=== PATIENT | female | born 1940 | race Caucasian/White ===

== ENCOUNTER → 2016-10-10 | Outpatient (CLI) | payer OTHER, BC ==
[~2016-10-10] MED LIST: APOA1CAP PO; ASCA500; ASCO-63 PO; ASPEC81; ASPI81TA28 PO; BROM500T2 PO; BROMELAIN; CALC-393 PO; CALCIUM; CHOL1CAP67 PO; CLOP1TAB5 PO; CYAN500T; HYZ/10015 PO; LEVO100T7 PO; LEVO100T84 PO; MEDLIST; MULT-506; NAPR1TAB9 PO; PRLSR20 PO; SIMV20TA5 PO; VERA240T20; VITA100C4; VITAMIN B WITH C
[2016-10-10 13:34] LABS: BASO % 0.8 %; BASO ABS # 0.11 K/uL (0-0.2); COMPLETE YES; EOS % 6.4 %; HEMATOCRIT 37.2 % (37-47); IG% 0.6 %; LYMPH % 15.1 %; LYMPH ABS # 2.01 K/uL (1.2-3.4); MEAN CELL VOLUME 88.8 fL (80-100); MEAN CORPUSCULAR HEMOGLOBIN 29.6 pg (25-34); MEAN CORPUSCULAR HGB CONC 33.3 g/dl (32-36); MEAN PLATELET VOLUME 9.4 fL (7.4-10.4); MONO % 8.4 %; NEUT % 68.7 %; PLATELET COUNT 395 K/uL (130-400); RED BLOOD COUNT 4.19 M/uL (4.2-5.4); WHITE BLOOD COUNT 13.29 K/uL (4.8-10.8)
[2016-10-10 14:22] LABS: ALT/SGPT 27 U/L (12-78); BLOOD UREA NITROGEN 26 mg/dl (7-18); BUN/CREATININE RATIO 32.6 (10-20); CARBON DIOXIDE 28 mmol/L (21-32); CHLORIDE 103 mmol/L (98-107); CHOLESTEROL 214 mg/dl (0-200); GLUCOSE 85 mg/dl (70-99); POTASSIUM 3.9 mmol/L (3.5-5.1); SODIUM 139 mmol/L (136-145); TRIGLYCERIDES 158 mg/dl (0-150); VERY LOW DENSITY LIPOPROT CALC 32 mg/dl
[2016-10-10 14:33] LABS: ALB/GLOB RATIO 1.3 (0.9-2); ALKALINE PHOSPHATASE 73 U/L (45-117); AST/SGOT 19 U/L (15-37); CHOLESTEROL/HDL RATIO 4.6; HDL CHOLESTEROL 47 mg/dl; LDL CHOLESTEROL CALCULATED 135 mg/dl; THYROID STIMULATING HORMONE 0.328 uIu/ml (0.300-4.500)
[2016-10-10 14:50] LABS: CALCIUM 9.7 mg/dl (8.5-10.1)
== END | disposition home or self-care (01) ==
LOC: C.LABBC 10:32
PROVIDERS: ATTEND Physician Assistant Medical
DX: I10 Essential (primary) hypertension (principal); E03.9 Hypothyroidism, unspecified; M85.80 Other specified disorders of bone density and structure, unspecified site

== ENCOUNTER → 2016-10-29 | Outpatient (CLI) | payer OTHER, BC ==
[2016-10-29 13:43] LABS: BASO % 0.7 %; BASO ABS # 0.07 K/uL (0-0.2); COMPLETE YES; EOS % 12.1 %; HEMATOCRIT 38.7 % (37-47); IG% 0.4 %; LYMPH % 16.8 %; LYMPH ABS # 1.75 K/uL (1.2-3.4); MEAN CELL VOLUME 88.6 fL (80-100); MEAN CORPUSCULAR HEMOGLOBIN 28.4 pg (25-34); MEAN PLATELET VOLUME 9.8 fL (7.4-10.4); MONO % 9.2 %; NEUT % 60.8 %; PLATELET COUNT 351 K/uL (130-400); RED BLOOD COUNT 4.37 M/uL (4.2-5.4); WHITE BLOOD COUNT 10.44 K/uL (4.8-10.8)
== END | disposition home or self-care (01) ==
LOC: C.LABBC 11:26
PROVIDERS: ATTEND Physician Assistant Medical
DX: I10 Essential (primary) hypertension (principal)

== ENCOUNTER 2016-11-05 11:58 | Inpatient (IN) | payer OTHER, BC ==
[~2016-11-05] VITALS: Ht 149.9 cm; Wt 64.1 kg
[~2016-11-05 11:58] MED LIST changes: -APOA1CAP PO; -ASCO-63 PO; -ASPI81TA28 PO; -BROM500T2 PO; -CALC-393 PO; -CHOL1CAP67 PO; -CLOP1TAB5 PO; -HYZ/10015 PO; -LEVO100T7 PO; -NAPR1TAB9 PO; -PRLSR20 PO; -SIMV20TA5 PO
[2016-11-05] MEDS ORDERED: SODIUM CHLORIDE 0.9% 1000ML 1,000 ML IV SCH (12:31)
--- NOTE | 2016-11-05 12:52 | DIAGNOSTIC IMAGING REPORT ---
CHEST ONE VIEW PORTABLE CLINICAL HISTORY: 75 years-old Female presenting with Stroke. TECHNIQUE: Portable upright AP view of the chest was obtained. COMPARISON: 05/04/2010. FINDINGS: Cardiomediastinal silhouette unremarkable for atherosclerosis of the aortic arch. Normal heart size. Lungs and pleural spaces clear. Osseous structures and upper abdomen normal. IMPRESSION: 1. No acute cardiopulmonary disease. Electronically signed by: Rick Ferguson 11/05/2016 12:50 PM Dictated Date/Time: 11/05/2016 12:49 PM
--- NOTE | 2016-11-05 13:08 | DIAGNOSTIC IMAGING REPORT ---
CT HEAD WITHOUT CONTRAST (CT) CLINICAL HISTORY: Left-sided facial droop. Right-sided head pain. Speech difficulties. Suspected stroke. COMPARISON STUDY: MRI the brain dated 02/22/2016 TECHNIQUE: Axial CT of the brain is performed from the vertex to the skull base. IV contrast was not administered for this examination. CT DOSE: 638.56 mGycm FINDINGS: No intra or extra-axial mass lesions are visualized. There is no CT evidence of acute cortical infarction. There is no evidence of midline shift. There is no acute hemorrhage. No calvarial fractures are visualized. There are moderate white matter hypodensities likely on a small vessel basis. There is scattered bilateral lacunar infarcts. There is no evidence of pathologic ventricular dilatation. There is no evidence of acute sinusitis IMPRESSION: 1. No acute intracranial findings 2. Scattered lacunar infarcts and moderate white matter disease likely on a small vessel basis Electronically signed by: Sebastián Patel M.D. 11/05/2016 1:06 PM Dictated Date/Time: 11/05/2016 1:04 PM
[2016-11-05 13:10] LABS: BASO % 0.8 %; BASO ABS # 0.09 K/uL (0-0.2); COMPLETE YES; HEMATOCRIT 38.9 % (37-47); IG% 0.2 %; LYMPH % 14.9 %; LYMPH ABS # 1.59 K/uL (1.2-3.4); MEAN CELL VOLUME 87.8 fL (80-100); MEAN CORPUSCULAR HEMOGLOBIN 28.7 pg (25-34); MEAN CORPUSCULAR HGB CONC 32.6 g/dl (32-36); MEAN PLATELET VOLUME 9.6 fL (7.4-10.4); MONO % 8.7 %; NEUT % 68.4 %; PLATELET COUNT 292 K/uL (130-400); RED BLOOD COUNT 4.43 M/uL (4.2-5.4); WHITE BLOOD COUNT 10.67 K/uL (4.8-10.8)
[2016-11-05] MEDS ORDERED: LEVO100T7 PO (13:10)
[2016-11-05] MEDS ORDERED: ASCO-63 PO (13:10)
[2016-11-05] MEDS ORDERED: HYZ/10015 PO (13:10)
[2016-11-05] MEDS ORDERED: BROM500T2 PO (13:10)
[2016-11-05] MEDS ORDERED: PRLSR20 PO (13:10)
[2016-11-05] MEDS ORDERED: CHOL1CAP67 PO (13:10)
[2016-11-05] MEDS ORDERED: CALC-393 PO (13:10)
[2016-11-05] MEDS ORDERED: NAPR1TAB9 PO (13:10)
[2016-11-05] MEDS ORDERED: ASPI81TA28 PO (13:10)
[2016-11-05] MEDS ORDERED: APOA1CAP PO (13:10)
[2016-11-05 13:30] LABS: PARTIAL THROMBOPLASTIN RATIO 0.9; PROTHROMBIN TIME (PATIENT) 10.4 SECONDS (9.0-12.0)
[2016-11-05 13:32] LABS: BLOOD UREA NITROGEN 18 mg/dl (7-18); BUN/CREATININE RATIO 20.9 (10-20); CALCIUM 9.9 mg/dl (8.5-10.1); CARBON DIOXIDE 25 mmol/L (21-32); CHLORIDE 105 mmol/L (98-107); CREATININE 0.86 mg/dl (0.60-1.20); GLUCOSE 91 mg/dl (70-99); POTASSIUM 3.4 mmol/L (3.5-5.1); SODIUM 140 mmol/L (136-145)
[2016-11-05 13:35] LABS: URINE APPEARANCE CLEAR (CLEAR); URINE BILIRUBIN NEG (NEG); URINE COLOR YELLOW; URINE NITRITE NEG (NEG); URINE SPECIFIC GRAVITY 1.011 (1.000-1.030); UROBILINOGEN NEG (NEG); ZZUR CULT IF INDIC CLEAN CATCH NO
[2016-11-05 13:37] LABS: CKMB/CK RATIO 2.2 (0-3.0)
[2016-11-05 13:39] LABS: MANUAL MICROSCOPIC REQUIRED? NO; REVIEW REQ? NO
[2016-11-05] MEDS ORDERED: PHARMACIST DISCHARGE MED REC CONSULT PRN (14:15)
[2016-11-05] MEDS ORDERED: ONDANSETRON INJ 2 MG/ML 2 ML VIAL IV PRN (14:30)
--- NOTE | 2016-11-05 14:41 | EMERGENCY ROOM VISIT NOTE ---
History Report prepared by Ion: Maximo Castro Under the Supervision of: Dr. Aliyah Grant M.D. First contact with patient: 12:26 Chief Complaint: STROKE SYMPTOMS Stated Complaint: NOT THINKING CLEARLY, SPEECH Nursing Triage Summary: Pt stated that last evening while with friends the pt noticed around 17 that she was having a hard time speaking. The pts friend also noticed that the left side of her mouth had a droop. Pt stated that she watched the fireworks and went to bed. Pt got up went to [facility] and then called her son who then brought in to the ED. Pts son stated that he noticed her speech was slurred. Pt stated that while in the waiting room she began stabbing pain on the right side of her head. Pt stated this is the first time she has felt this pain History of Present Illness The patient is a 75 year old female who presents to the Emergency Room with complaints of persistent difficulty with speech beginning last night. She states that she is having trouble saying the correct words while she is speaking. She states that she slept last night without problem. The patient states that she developed a "stabbing" right sided headache while in the ED waiting room. Her headache has since resolved. She denies any weakness. She is not on any blood thinners other than aspirin. Source of History: patient Onset: Last night Quality: other (difficulty with speech) Timing: other (persistent) Associated Symptoms: + headache ("stabbing" right sided), No weakness Review of Systems See HPI for pertinent positives & negatives. A total of 10 systems reviewed and were otherwise negative. Past Medical & Surgical Medical Problems: (1) Asthma (2) CVA (cerebral vascular accident) (3) HTN (hypertension) Surgical Problems: (1) History of hysterectomy (2) S/P appendectomy Family History No pertinent family history stated. Social History Smoking Status: Never Smoker Marital Status: Occupation Status: retired Current/Historical Medications Scheduled Apoaequorin (Prevagen), 1 TAB PO DAILY Ascorbic Acid (Vitamin C), 500 MG PO NEEDED Aspirin (Aspirin Ec), 81 MG PO DAILY Bromelains (Bromelain), 1-2 TAB PO DAILY Calcium Carbonate (Calcium), 600 MG PO DAILY Cholecalciferol (Vitamin D-3), 1,000 INTERUNIT PO DAILY Hctz/Losartan (Hyzaar 25MG/100MG), Unknown Dose PO QAM Levothyroxine Sodium (Levothyroxine Sodium), 100 MCG PO DAILY Naproxen (Aleve), 440 MG PO DAILY Omeprazole (Prilosec), 20 MG PO QAM Allergies Coded Allergies: Penicillins (Unverified Allergy, Mild, 05/04/10) Shellfish (Unverified Allergy, Mild, 05/04/10) Sulfa Drugs (Unverified Allergy, Mild, 05/04/10) Physical Exam Vital Signs Date Time Temp Pulse Resp B/P (MAP) Pulse Ox O2 Delivery O2 Flow Rate FiO2 11/05/16 14:16 156/80 11/05/16 14:08 68 19 97 11/05/16 14:06 65 20 160/89 97 Room Air 11/05/16 14:01 160/89 11/05/16 13:53 76 22 96 11/05/16 13:46 168/87 11/05/16 13:38 73 18 98 11/05/16 13:33 68 19 172/99 97 Room Air 11/05/16 13:26 91 19 162/86 97 Room Air 11/05/16 12:31 82 20 179/84 95 Room Air 11/05/16 12:28 96 Room Air 11/05/16 12:27 73 11/05/16 12:26 77 19 195/89 98 Room Air 11/05/16 12:00 36.9 80 20 176/98 98 Room Air Physical Exam Vital signs reviewed. General: Well-appearing female, in no significant distress. HEENT: No scleral icterus, PERRLA, neck supple. Atraumatic. Cardiovascular: Regular rate and rhythm, no extra sounds. Pulmonary: Clear to auscultation bilaterally, normal work of breathing. Abdomen: Soft, nontender, nondistended, positive bowel sounds. Musculoskeletal: Atraumatic, no peripheral edema. Neurologic: Patient awake alert and oriented x 3, full strength in all 4 extremities. Cranial nerves 2 through 12 grossly intact. Negative Romberg. Normal finger to nose. Mild dysarthria, no specific aphasia. Skin: Warm, dry, no rash Medical Decision & Procedures ER Provider Diagnostic Interpretation: Radiology results as stated below per my review and radiologist interpretation: CT HEAD WITHOUT CONTRAST (CT) FINDINGS: No intra or extra-axial mass lesions are visualized. There is no CT evidence of acute cortical infarction. There is no evidence of midline shift. There is no acute hemorrhage. No calvarial fractures are visualized. There are moderate white matter hypodensities likely on a small vessel basis. There is scattered bilateral lacunar infarcts. There is no evidence of pathologic ventricular dilatation. There is no evidence of acute sinusitis IMPRESSION: 1. No acute intracranial findings 2. Scattered lacunar infarcts and moderate white matter disease likely on a small vessel basis Electronically signed by: Sebastián Patel M.D. CHEST ONE VIEW PORTABLE FINDINGS: Cardiomediastinal silhouette unremarkable for atherosclerosis of the aortic arch. Normal heart size. Lungs and pleural spaces clear. Osseous structures and upper abdomen normal. IMPRESSION: 1. No acute cardiopulmonary disease. Electronically signed by: Rick Ferguson Laboratory Results 11/05/16 12:50 Red Blood Count 4.43, Mean Corpuscular Volume 87.8, Mean Corpuscular Hemoglobin 28.7, Mean Corpuscular Hemoglobin Concent 32.6, Mean Platelet Volume 9.6, Neutrophils (%) (Auto) 68.4, Lymphocytes (%) (Auto) 14.9, Monocytes (%) (Auto) 8.7, Eosinophils (%) (Auto) 7.0, Basophils (%) (Auto) 0.8, Neutrophils # (Auto) 7.29, Lymphocytes # (Auto) 1.59, Monocytes # (Auto) 0.93, Eosinophils # (Auto) 0.75, Basophils # (Auto) 0.09 11/05/16 12:50 Test 11/05/16 12:49 11/05/16 12:50 11/05/16 12:53 11/05/16 13:18 Bedside Glucose 80 mg/dl (70-90) White Blood Count 10.67 K/uL (4.8-10.8) Red Blood Count 4.43 M/uL (4.2-5.4) Hemoglobin 12.7 g/dL (12.0-16.0) Hematocrit 38.9 % (37-47) Mean Corpuscular Volume 87.8 fL (80-100) Mean Corpuscular Hemoglobin 28.7 pg (25-34) Mean Corpuscular Hemoglobin Concent 32.6 g/dl (32-36) Platelet Count 292 K/uL (130-400) Mean Platelet Volume 9.6 fL (7.4-10.4) Neutrophils (%) (Auto) 68.4 % Lymphocytes (%) (Auto) 14.9 % Monocytes (%) (Auto) 8.7 % Eosinophils (%) (Auto) 7.0 % Basophils (%) (Auto) 0.8 % Neutrophils # (Auto) 7.29 K/uL (1.4-6.5) Lymphocytes # (Auto) 1.59 K/uL (1.2-3.4) Monocytes # (Auto) 0.93 K/uL (0.11-0.59) Eosinophils # (Auto) 0.75 K/uL (0-0.5) Basophils # (Auto) 0.09 K/uL (0-0.2) RDW Standard Deviation 43.6 fL (36.4-46.3) RDW Coefficient of Variation 13.5 % (11.5-14.5) Immature Granulocyte % (Auto) 0.2 % Immature Granulocyte # (Auto) 0.02 K/uL (0.00-0.02) Erythrocyte Sedimentation Rate 18 mm/hr (0-21) Prothrombin Time 10.4 SECONDS (9.0-12.0) Prothromb Time International Ratio 1.0 (0.9-1.1) Activated Partial Thromboplast Time 24.6 SECONDS (21.0-31.0) Partial Thromboplastin Ratio 0.9 Anion Gap 10.0 mmol/L (3-11) Est Creatinine Clear Calc Drug Dose 44.0 ml/min Estimated GFR () 75.5 Estimated GFR (Non- 65.2 BUN/Creatinine Ratio 20.9 (10-20) Estimated Average Glucose 120 mg/dl Hemoglobin A1c 5.8 % (4.5-5.6) Calcium Level 9.9 mg/dl (8.5-10.1) Magnesium Level 2.1 mg/dl (1.8-2.4) Total Bilirubin 0.4 mg/dl (0.2-1) Direct Bilirubin 0.1 mg/dl (0-0.2) Aspartate Amino Transf (AST/SGOT) 20 U/L (15-37) Alanine Aminotransferase (ALT/SGPT) 27 U/L (12-78) Alkaline Phosphatase 72 U/L (45-117) Total Creatine Kinase 117 U/L (26-192) Creatine Kinase MB 2.6 ng/ml (0.5-3.6) Creatine Kinase MB Ratio 2.2 (0-3.0) Troponin I < 0.015 ng/ml (0-0.045) Total Protein 7.4 gm/dl (6.4-8.2) Albumin 4.3 gm/dl (3.4-5.0) Lyme Disease IgG Antibody NEG (NEG) Bedside Prothrombin Time INR 1.0 (0.9-1.1) Urine Color YELLOW Urine Appearance CLEAR (CLEAR) Urine pH 6.0 (4.5-7.5) Urine Specific [place] 1.011 (1.000-1.030) Urine Protein NEG (NEG) Urine Glucose (UA) NEG (NEG) Urine Ketones NEG (NEG) Urine Occult Blood NEG (NEG) Urine Nitrite NEG (NEG) Urine Bilirubin NEG (NEG) Urine Urobilinogen NEG (NEG) Urine Leukocyte Esterase NEG (NEG) Laboratory results per my review. Medications Administered Medications (Trade) Dose Ordered Sig/Chris Route Start Time Stop Time Status Last Admin Dose Admin Sodium Chloride 1,000 ml @ 50 mls/hr Q20H IV 11/05/16 12:31 11/05/16 17:09 DC 11/05/16 13:20 50 MLS/HR ECG Indication: other (stroke-like symptoms) Rate (beats per minute): 80 Rhythm: normal sinus Findings: no acute ischemic change, no ectopy ED Course 1226: Past medical records reviewed. The patient was evaluated in room B1. A complete history and physical examination was performed. 1231: Ordered Sodium Chloride 1000 ml @ 50 mls/hr IV. 1400: Upon reevaluation, the patient is resting comfortably. I discussed laboratory and radiographic results with her. She verbalized agreement of the treatment plan. I spoke with Dr. Dowell of the [facility]. The patient will be evaluated for further management and care. Medical Decision Differential diagnosis: Etiologies such as metabolic, infection, hypoglycemia, electrolyte abnormalities , cardiac sources, intracerebral event, toxicologic, neurologic, as well as others were entertained. Blood Pressure Screening: Patient was found to have an elevated blood pressure. Referral was deferred to the hospitalist team. Medication Reconciliation: I attest that I have personally reviewed the patient' s current medication list. This patient was evaluated and appeared to be in no significant distress. IV access was obtained and laboratory work was drawn. The patient was placed on silver designer and found to be in a normal sinus rhythm. EKG reveals no evidence of acute ischemia. Laboratory work reveals negative cardiac enzymes. Head CT is clear. Chest x-ray is normal. No TPA is given as the patient is outside the window, has no appreciable symptoms currently. Patient was discussed with the hospitalist service will evaluate the patient for further management. Consults Time Called: 1400 Consulting Physician: Dr. Dowell -[place] Returned Call: [phone] I reviewed the patient's case with Dr. Dowell. [facility] will evaluate the patient for further management. Impression Primary Impression: Dysarthria Scribe Attestation The scribe's documentation has been prepared under my direction and personally reviewed by me in its entirety. I confirm that the note above accurately reflects all work, treatment, procedures, and medical decision making performed by me. Departure Information Dispostion Being Evaluated By Hospitalist Referrals Shahana Arenas,P.A. (PCP) Patient Instructions [facility]
[2016-11-05 14:54] LABS: ESTIMATED AVERAGE GLUCOSE 120 mg/dl; HA1C FLAG Normal (Normal)
[2016-11-05 15:02] LABS: MAGNESIUM 2.1 mg/dl (1.8-2.4)
[2016-11-05 15:41] LABS: LYME DISEASE AB IGG NEG (NEG)
[2016-11-05 15:44] LABS: LYME DISEASE AB IGM EQUIVOCAL (NEG)
[2016-11-05 17:48] VITALS: BP 162/91; PULSE 69; TEMP 36.7; Ht 149.9 cm; Wt 64.1 kg
[2016-11-05] MEDS: NSS + 20MEQ KCL 1000ML 1,000 ML IV SCH (20:05)
[2016-11-05] MEDS: CALCIUM 600MG + VIT D 400 IU TAB PO SCH (20:06)
[2016-11-05 20:18] VITALS: BP 149/89; PULSE 74; TEMP 37; O2SAT 94
[2016-11-05 21:24] LABS: CKMB/CK RATIO 1.5 (0-3.0)
[2016-11-05] MEDS ORDERED: GADAVIST IV PRN (23:15)
[2016-11-05 23:46] VITALS: BP 117/68; PULSE 71; TEMP 36.9; O2SAT 95
[2016-11-06] VITALS (7 sets, daily range): BP systolic 121–164; BP diastolic 65–92; PULSE 69–81; TEMP 36.5–36.9; O2SAT 96–99
[2016-11-06 04:39] LABS: COMPLETE YES; EOS % 11.1 %; HEMATOCRIT 35.7 % (37-47); IG% 0.3 %; LYMPH % 22.4 %; LYMPH ABS # 2.18 K/uL (1.2-3.4); MEAN CELL VOLUME 87.5 fL (80-100); MEAN CORPUSCULAR HEMOGLOBIN 27.9 pg (25-34); MEAN CORPUSCULAR HGB CONC 31.9 g/dl (32-36); MEAN PLATELET VOLUME 9.2 fL (7.4-10.4); MONO % 9.6 %; NEUT % 55.6 %; PLATELET COUNT 277 K/uL (130-400); RED BLOOD COUNT 4.08 M/uL (4.2-5.4); WHITE BLOOD COUNT 9.72 K/uL (4.8-10.8)
--- NOTE | 2016-11-06 04:59 | History and Physical ---
History & Physical Date & Time of Service: Nov 06, 2016 at 04:47. The patient was examined on 11/05/2016 Chief Complaint: CVA Primary Care Physician: Shahana Arenas P.A. History of Present Illness The patient is a 75-year-old female who presents emergency department with symptoms of expressive aphasia that began the night before, and an intermittent stabbing right-sided headache that began while she was waiting in the emergency department waiting room. She has not had any vision change or hearing change, and has not reported any imbalance or focal weakness. Family has noted that she has developed a left facial droop and some slurring of speech which is new. Past Medical/Surgical History Medical Problems: (1) Asthma Status: Chronic (2) HTN (hypertension) Status: Chronic Surgical Problems: (1) History of hysterectomy Status: Resolved (2) S/P appendectomy Status: Resolved Social History Smoking Status: Never Smoker Smokeless Tobacco Use: No Alcohol Use: none Drug Use: none Marital Status: Housing status: lives alone Occupational Status: retired Multi-Drug Resistant Organisms History of MDRO: No Allergies Coded Allergies: Penicillins (Unverified Allergy, Mild, 05/04/10) Shellfish (Unverified Allergy, Mild, 05/04/10) Sulfa Drugs (Unverified Allergy, Mild, 05/04/10) Home Medications Scheduled Apoaequorin (Prevagen), 1 TAB PO DAILY Ascorbic Acid (Vitamin C), 500 MG PO NEEDED Aspirin (Aspirin Ec), 81 MG PO DAILY Bromelains (Bromelain), 1-2 TAB PO DAILY Calcium Carbonate (Calcium), 600 MG PO DAILY Cholecalciferol (Vitamin D-3), 1,000 INTERUNIT PO DAILY Hctz/Losartan (Hyzaar 25MG/100MG), Unknown Dose PO QAM Levothyroxine Sodium (Levothyroxine Sodium), 100 MCG PO DAILY Naproxen (Aleve), 440 MG PO DAILY Omeprazole (Prilosec), 20 MG PO QAM Review of Systems The patient denies chest pain, palpitations, shortness of breath, cough, lower extremity swelling, vision change, hearing change, sore throat, fevers, chills, sweats, weight change, fatigue, nausea, vomiting, abdominal pain, pelvic pain, blood in urine or stool, dysuria, urinary frequency or urgency, rash, abnormal bruising or bleeding, imbalance, focal weakness, numbness or tingling in arms or legs, arthralgias or myalgias, back or neck pain, night sweats, or allergy symptoms. The review of systems is otherwise negative other than for that already noted above, and at least 10 systems have been reviewed. Physical Exam Vital Signs Date Time Temp Pulse Resp B/P (MAP) Pulse Ox O2 Delivery O2 Flow Rate FiO2 11/06/16 04:09 36.8 69 18 126/73 (90) 96 Room Air 11/06/16 04:00 Room Air 11/06/16 01:44 121/65 (83) 11/06/16 00:00 Room Air 11/05/16 23:46 36.9 71 16 117/68 (84) 95 Room Air 11/05/16 20:18 37.0 74 16 149/89 (109) 94 Room Air 11/05/16 20:00 Room Air 11/05/16 17:48 36.7 69 20 162/91 Room Air 11/05/16 16:30 Room Air 11/05/16 16:16 158/85 11/05/16 16:13 68 19 97 11/05/16 16:01 155/94 11/05/16 15:58 67 19 96 11/05/16 15:46 183/88 11/05/16 15:43 75 14 11/05/16 15:31 163/91 11/05/16 15:28 68 17 97 11/05/16 15:16 172/97 11/05/16 15:13 72 21 95 11/05/16 15:08 73 22 98 11/05/16 15:01 161/82 11/05/16 14:53 69 19 97 11/05/16 14:46 165/96 11/05/16 14:31 172/85 11/05/16 14:23 75 19 92 11/05/16 14:16 156/80 11/05/16 14:08 68 19 97 11/05/16 14:06 65 20 160/89 97 Room Air 11/05/16 14:01 160/89 11/05/16 13:53 76 22 96 11/05/16 13:46 168/87 11/05/16 13:38 73 18 98 11/05/16 13:33 68 19 172/99 97 Room Air 11/05/16 13:26 91 19 162/86 97 Room Air 11/05/16 12:31 82 20 179/84 95 Room Air 11/05/16 12:28 96 Room Air 11/05/16 12:27 73 11/05/16 12:26 77 19 195/89 98 Room Air 11/05/16 12:00 36.9 80 20 176/98 98 Room Air The patient is awake, well-developed and adequately nourished, alert and oriented 3, left-sided facial droop, some slurring of speech, lying in bed and in no acute distress. HEENT--PERRL, EOMI, mucous membranes and oropharynx dry. Neck--supple, no JVD or bruits, thyroid normal, trachea midline, no adenopathy. Heart--normal S1 and S2, no extra beats, no murmurs, rubs or gallops. Lungs--clear bilaterally with good air movement, no respiratory distress, no accessory muscle use. Abdomen--normal bowel sounds and soft, nontender and nondistended, no hernias or masses, no organomegaly. Extremities--no cyanosis, clubbing or edema. There are good distal pulses b/l. Dermatologic--normal skin turgor, normal color, warm and dry, no abnormal lymph nodes, no rash. Neurologic--left facial droop, otherwise normal. Rheumatologic--normal range of motion, nontender, muscles and joints. Psychiatric--normal affect. Diagnostics Laboratory Results Results Past 24 Hours Test 11/05/16 12:49 11/05/16 12:50 11/05/16 12:53 11/05/16 13:18 Range/Units Bedside Glucose 80 70-90 mg/dl White Blood Count 10.67 4.8-10.8 K/uL Red Blood Count 4.43 4.2-5.4 M/uL Hemoglobin 12.7 12.0-16.0 g/dL Hematocrit 38.9 37-47 % Mean Corpuscular Volume 87.8 80-100 fL Mean Corpuscular Hemoglobin 28.7 25-34 pg Mean Corpuscular Hemoglobin Concent 32.6 32-36 g/dl Platelet Count 292 130-400 K/uL Mean Platelet Volume 9.6 7.4-10.4 fL Neutrophils (%) (Auto) 68.4 % Lymphocytes (%) (Auto) 14.9 % Monocytes (%) (Auto) 8.7 % Eosinophils (%) (Auto) 7.0 % Basophils (%) (Auto) 0.8 % Neutrophils # (Auto) 7.29 1.4-6.5 K/uL Lymphocytes # (Auto) 1.59 1.2-3.4 K/uL Monocytes # (Auto) 0.93 0.11-0.59 K/uL Eosinophils # (Auto) 0.75 0-0.5 K/uL Basophils # (Auto) 0.09 0-0.2 K/uL RDW Standard Deviation 43.6 36.4-46.3 fL RDW Coefficient of Variation 13.5 11.5-14.5 % Immature Granulocyte % (Auto) 0.2 % Immature Granulocyte # (Auto) 0.02 0.00-0.02 K/uL Erythrocyte Sedimentation Rate 18 0-21 mm/hr Prothrombin Time 10.4 9.0-12.0 SECONDS Prothromb Time International Ratio 1.0 0.9-1.1 Activated Partial Thromboplast Time 24.6 21.0-31.0 SECONDS Partial Thromboplastin Ratio 0.9 Sodium Level 140 136-145 mmol/L Potassium Level 3.4 3.5-5.1 mmol/L Chloride Level 105 98-107 mmol/L Carbon Dioxide Level 25 21-32 mmol/L Anion Gap 10.0 3-11 mmol/L Blood Urea Nitrogen 18 7-18 mg/dl Creatinine 0.86 0.60-1.20 mg/dl Est Creatinine Clear Calc Drug Dose 44.0 ml/min Estimated GFR () 75.5 Estimated GFR (Non- 65.2 BUN/Creatinine Ratio 20.9 10-20 Random Glucose 91 70-99 mg/dl Estimated Average Glucose 120 mg/dl Hemoglobin A1c 5.8 4.5-5.6 % Calcium Level 9.9 8.5-10.1 mg/dl Magnesium Level 2.1 1.8-2.4 mg/dl Total Bilirubin 0.4 0.2-1 mg/dl Direct Bilirubin 0.1 0-0.2 mg/dl Aspartate Amino Transf (AST/SGOT) 20 15-37 U/L Alanine Aminotransferase (ALT/SGPT) 27 12-78 U/L Alkaline Phosphatase 72 45-117 U/L Total Creatine Kinase 117 26-192 U/L Creatine Kinase MB 2.6 0.5-3.6 ng/ml Creatine Kinase MB Ratio 2.2 0-3.0 Troponin I < 0.015 0-0.045 ng/ml Total Protein 7.4 6.4-8.2 gm/dl Albumin 4.3 3.4-5.0 gm/dl Lyme Disease IgG Antibody NEG NEG Lyme Disease IgM Antibody EQUIVOCAL NEG Bedside Prothrombin Time INR 1.0 0.9-1.1 Urine Color YELLOW Urine Appearance CLEAR CLEAR Urine pH 6.0 4.5-7.5 Urine Specific [place] 1.011 1.000-1.030 Urine Protein NEG NEG Urine Glucose (UA) NEG NEG Urine Ketones NEG NEG Urine Occult Blood NEG NEG Urine Nitrite NEG NEG Urine Bilirubin NEG NEG Urine Urobilinogen NEG NEG Urine Leukocyte Esterase NEG NEG Test 11/05/16 20:27 11/06/16 04:09 Range/Units Total Creatine Kinase 89 26-192 U/L Creatine Kinase MB 1.3 0.5-3.6 ng/ml Creatine Kinase MB Ratio 1.5 0-3.0 Troponin I < 0.015 0-0.045 ng/ml White Blood Count 9.72 4.8-10.8 K/uL Red Blood Count 4.08 4.2-5.4 M/uL Hemoglobin 11.4 12.0-16.0 g/dL Hematocrit 35.7 37-47 % Mean Corpuscular Volume 87.5 80-100 fL Mean Corpuscular Hemoglobin 27.9 25-34 pg Mean Corpuscular Hemoglobin Concent 31.9 32-36 g/dl Platelet Count 277 130-400 K/uL Mean Platelet Volume 9.2 7.4-10.4 fL Neutrophils (%) (Auto) 55.6 % Lymphocytes (%) (Auto) 22.4 % Monocytes (%) (Auto) 9.6 % Eosinophils (%) (Auto) 11.1 % Basophils (%) (Auto) 1.0 % Neutrophils # (Auto) 5.40 1.4-6.5 K/uL Lymphocytes # (Auto) 2.18 1.2-3.4 K/uL Monocytes # (Auto) 0.93 0.11-0.59 K/uL Eosinophils # (Auto) 1.08 0-0.5 K/uL Basophils # (Auto) 0.10 0-0.2 K/uL RDW Standard Deviation 43.8 36.4-46.3 fL RDW Coefficient of Variation 13.7 11.5-14.5 % Immature Granulocyte % (Auto) 0.3 % Immature Granulocyte # (Auto) 0.03 0.00-0.02 K/uL Diagnostic Radiology Patient Name: MELO BELLO Unit Number: [id number] Dictated: 11/05/161303 Transcribed: 11/05/161303 ARG Printed Date/Time: [~ rep prt dt]/[~ rep prt tm] [~ rep ct labl] - [~ rep ct ivnm] [facility] [place] [address] Dictated: 11/05/161303 Transcribed: 11/05/161303 ARG Printed Date/Time: [~ rep prt dt]/[~ rep prt tm] [~ rep ct labl] - [~ rep ct ivnm] CT HEAD WITHOUT CONTRAST (CT) CLINICAL HISTORY: Left-sided facial droop. Right-sided head pain. Speech difficulties. Suspected stroke. COMPARISON STUDY: MRI the brain dated 02/22/2016 TECHNIQUE: Axial CT of the brain is performed from the vertex to the skull base. IV contrast was not administered for this examination. CT DOSE: 638.56 mGycm FINDINGS: No intra or extra-axial mass lesions are visualized. There is no CT evidence of acute cortical infarction. There is no evidence of midline shift. There is no acute hemorrhage. No calvarial fractures are visualized. There are moderate white matter hypodensities likely on a small vessel basis. There is scattered bilateral lacunar infarcts. There is no evidence of pathologic ventricular dilatation. There is no evidence of acute sinusitis IMPRESSION: 1. No acute intracranial findings 2. Scattered lacunar infarcts and moderate white matter disease likely on a small vessel basis Electronically signed by: Sebastián Patel M.D. 11/05/2016 1:06 PM Dictated Date/Time: 11/05/2016 1:04 PM The status of this report is Signed. Draft = Not yet reviewed or approved by Radiologist. Signed = Reviewed and approved by Radiologist. <AttendingPhy></AttendingPhy> <FamilyPhy>Shahana Arenas P.A.</FamilyPhy> < PrimaryPhy>Shahana Arenas P.A.</PrimaryPhy> <UnitNumber>[id number]</UnitNumber > <VisitNumber>[id number]</VisitNumber> <PatientName>MELO BELLO</ PatientName> <DateOfBirth>1940</DateOfBirth> <Location>[facility]</Location> < ServiceDate>11/05/16</ServiceDate> <MNE>ESINDI</MNE> <OrderingPhy>Aliyah Grant M.D.</OrderingPhy> <OrderingPhyMNE>f rep ord dr rubio</OrderingPhyMNE> < DictatingPhyMNE>f rep dict dr rubio</DictatingPhyMNE> <CCListMNE>f rep ct mne</ CCListMNE> <AdmittingPhyMNE>f pt admit dr rubio</AdmittingPhyMNE> <AttendingPhyMNE >f pt attend dr rubio</AttendingPhyMNE> <ConsultingPhyMNE>f pt consult dr rubio</ConsultingPhyMNE> <FamilyPhyMNE>f pt fam dr rubio</FamilyPhyMNE> <OtherPhyMNE>f pt other dr rubio</OtherPhyMNE> < PrimaryPhyMNE>f pt prim care dr rubio</PrimaryPhyMNE> <ReferringPhyMNE>f pt referring dr rubio</ReferringPhyMNE> Patient Name: MELO BELLO Unit Number: [id number] Dictated: 11/05/161248 Transcribed: 11/05/161248 PBS Printed Date/Time: [~ rep prt dt]/[~ rep prt tm] [~ rep ct labl] - [~ rep ct ivnm] [facility] [place] [address] Dictated: 11/05/161248 Transcribed: 11/05/161248 PBS Printed Date/Time: [~ rep prt dt]/[~ rep prt tm] [~ rep ct labl] - [~ rep ct ivnm] CHEST ONE VIEW PORTABLE CLINICAL HISTORY: 75 years-old Female presenting with Stroke. TECHNIQUE: Portable upright AP view of the chest was obtained. COMPARISON: 05/04/2010. FINDINGS: Cardiomediastinal silhouette unremarkable for atherosclerosis of the aortic arch. Normal heart size. Lungs and pleural spaces clear. Osseous structures and upper abdomen normal. IMPRESSION: 1. No acute cardiopulmonary disease. Electronically signed by: Rick Ferguson 11/05/2016 12:50 PM Dictated Date/Time: 11/05/2016 12:49 PM The status of this report is Signed. Draft = Not yet reviewed or approved by Radiologist. Signed = Reviewed and approved by Radiologist. <AttendingPhy></AttendingPhy> <FamilyPhy>Shahana ArenasPSincere.</FamilyPhy> < PrimaryPhy>Shahana ArenasPSharonA.</PrimaryPhy> <UnitNumber>[id number]</UnitNumber > <VisitNumber>[id number]</VisitNumber> <PatientName>MELO BELLO</ PatientName> <DateOfBirth>1940</DateOfBirth> <Location>[facility]</Location> < ServiceDate>11/05/16</ServiceDate> <MNE>ESINDI</MNE> <OrderingPhy>Aliyah Grant M.D.</OrderingPhy> <OrderingPhyMNE>f rep ord dr rubio</OrderingPhyMNE> < DictatingPhyMNE>f rep dict dr rubio</DictatingPhyMNE> <CCListMNE>f rep ct mne</ CCListMNE> <AdmittingPhyMNE>f pt admit dr rubio</AdmittingPhyMNE> <AttendingPhyMNE >f pt attend dr rubio</AttendingPhyMNE> <ConsultingPhyMNE>f pt consult dr rubio</ConsultingPhyMNE> <FamilyPhyMNE>f pt fam dr rubio</FamilyPhyMNE> <OtherPhyMNE>f pt other dr rubio</OtherPhyMNE> < PrimaryPhyMNE>f pt prim care dr rubio</PrimaryPhyMNE> <ReferringPhyMNE>f pt referring dr rubio</ReferringPhyMNE> EKG EKG shows normal sinus rhythm at 80 bpm, with no significant change compared to 05/04/2010 Impression Assessment and Plan CVA/residual slurred speech and left facial droop, both of which are improving/ CT showing multiple old bilateral lacunar infarcts and small vessel disease-- the patient will be admitted to the telemetry unit for serial cardiac enzymes, cardiac rhythm monitoring and a 2-D echocardiogram with Dopplers. We'll order MRI of the brain combo, MRA of the neck combo, MRA of the head without contrast. We'll consult PT/OT/social service technician/speech therapy/neurology. Patient is presently on aspirin 81 mg by mouth daily. She will likely need to be changed to Plavix or Aggrenox. Hypertension--hold HCTZ/losartan. We will allow permissive hypertension for now. Hypothyroidism--continue levothyroxine sodium 100 g by mouth daily. GERD--change omeprazole 20 mg by mouth every morning to pantoprazole 40 mg by mouth every morning. Arthritis--avoid all NSAIDs including her naproxen 0.40 mg by mouth daily, due to being on antiplatelet agents. Level of Care Telemetry Advanced Directives Existing Advance Directive: No Existing Living Will: No Existing Power of Ball Truing Machine Operator: No VTE Prophylaxis VTE Risk Assessment Done? Y/N: Yes Risk Level: Moderate Given or contraindicated: SCD's
[2016-11-06 05:00] LABS: BLOOD UREA NITROGEN 14 mg/dl (7-18); BUN/CREATININE RATIO 18.5 (10-20); CALCIUM 8.8 mg/dl (8.5-10.1); CARBON DIOXIDE 29 mmol/L (21-32); CHLORIDE 108 mmol/L (98-107); CREATININE 0.73 mg/dl (0.60-1.20); GLUCOSE 86 mg/dl (70-99); POTASSIUM 3.9 mmol/L (3.5-5.1); SODIUM 142 mmol/L (136-145)
[2016-11-06 05:05] LABS: CHOLESTEROL 208 mg/dl (0-200); CHOLESTEROL/HDL RATIO 4.7; CKMB/CK RATIO 1.8 (0-3.0); HDL CHOLESTEROL 44 mg/dl; LDL CHOLESTEROL CALCULATED 136 mg/dl; TRIGLYCERIDES 139 mg/dl (0-150); VERY LOW DENSITY LIPOPROT CALC 28 mg/dl
[2016-11-06] MEDS ORDERED: LEVOTHYROXINE 100 MCG TAB PO SCH (06:00)
[2016-11-06] MEDS: NSS + 20MEQ KCL 1000ML 1,000 ML IV SCH (06:13)
--- NOTE | 2016-11-06 06:45 | DIAGNOSTIC IMAGING REPORT ---
MRI OF THE BRAIN WITHOUT AND WITH IV CONTRAST CLINICAL HISTORY: Stroke mental status change COMPARISON STUDY: 02/22/2016 TECHNIQUE: Utilizing a 1.5 Laila magnet and dedicated coil, multiplanar, multiecho imaging of the brain was performed pre and postcontrast administration. IV administration of 8 mL of Gadavist contrast was uneventful. FINDINGS: Diffusion-weighted images confirm an acute infarct of the right paraventricular region. This measures 1 cm maximum dimension. Study otherwise demonstrates a component of mild cerebellar as well as cerebral atrophy. Moderate chronic small vessel change is identified in the periventricular deep white matter regions bilaterally. Ventricular system is midline. No significant postcontrast enhancement. Sella and parasellar regions are unremarkable. IMPRESSION: 1. Small acute right periventricular infarct. 2. Atrophy. 3. Chronic small vessel change throughout. Electronically signed by: Rikki Galvez M.D. 11/06/2016 6:43 AM Dictated Date/Time: 11/06/2016 6:41 AM
--- NOTE | 2016-11-06 07:20 | DIAGNOSTIC IMAGING REPORT ---
MR ANGIOGRAM OF THE BRAIN CLINICAL HISTORY: 75-year-old female with stroke symptoms, small acute right periventricular infarct. TECHNIQUE: MR angiography of the head was performed without use of intravenous contrast using 3-D [id number] MR angiography technique. 3-D tumble views were created for review. Subsequently, MR angiography of the neck was performed before and after administration of 6 mL of Gadavist was administered intravenously. COMPARISON: Correlation made to MR brain from 11/05/2016 and 02/22/2016.. FINDINGS: MRA head: In the anterior circulation, apparent stenosis of the bifurcation of the left middle cerebral artery (series 4 image 93). The severity of the stenosis may be exaggerated on volumetric reconstructions and in part artifactual (series 4 image 11). Mild stenosis of the distal M1 segment of the right middle cerebral artery (series 4 image 92). Mild stenosis of the distal M1 segments of the right middle cerebral artery and proximal M2 segments (series 4 image 10). In the posterior circulation, significant stenosis of the left posterior cerebral artery in the P1 segment (series 4 image 89). Posterior communicating arteries not well visualized. The right vertebral artery is dominant. MRA neck: A four-vessel arch is noted. Although the origin of the left vertebral artery appears patent, there is a possible stenosis of the left vertebral artery approximately 1 to 2 cm from its origin (series 14 image 16). The right vertebral artery is dominant. Artifactual loss of signal at the carotid bulbs on [id number]. Less than 50% stenosis of the proximal cervical portion of the left internal carotid artery (series 13 image 39; series 14 image 1). IMPRESSION: 1. No intracranial vessel occlusion. Significant stenosis of the left posterior cerebral artery with mild stenoses elsewhere as described above. 2. Possible stenosis of the proximal left vertebral artery near its origin at the aortic arch. 3. Less than 50% stenosis of the proximal cervical portion of the left internal carotid artery. Electronically signed by: Rick Ferguson 11/06/2016 7:19 AM Dictated Date/Time: 11/06/2016 6:58 AM
--- NOTE | 2016-11-06 07:20 | DIAGNOSTIC IMAGING REPORT ---
MR ANGIOGRAM OF THE BRAIN CLINICAL HISTORY: 75-year-old female with stroke symptoms, small acute right periventricular infarct. TECHNIQUE: MR angiography of the head was performed without use of intravenous contrast using 3-D [id number] MR angiography technique. 3-D tumble views were created for review. Subsequently, MR angiography of the neck was performed before and after administration of 6 mL of Gadavist was administered intravenously. COMPARISON: Correlation made to MR brain from 11/05/2016 and 02/22/2016.. FINDINGS: MRA head: In the anterior circulation, apparent stenosis of the bifurcation of the left middle cerebral artery (series 4 image 93). The severity of the stenosis may be exaggerated on volumetric reconstructions and in part artifactual (series 4 image 11). Mild stenosis of the distal M1 segment of the right middle cerebral artery (series 4 image 92). Mild stenosis of the distal M1 segments of the right middle cerebral artery and proximal M2 segments (series 4 image 10). In the posterior circulation, significant stenosis of the left posterior cerebral artery in the P1 segment (series 4 image 89). Posterior communicating arteries not well visualized. The right vertebral artery is dominant. MRA neck: A four-vessel arch is noted. Although the origin of the left vertebral artery appears patent, there is a possible stenosis of the left vertebral artery approximately 1 to 2 cm from its origin (series 14 image 16). The right vertebral artery is dominant. Artifactual loss of signal at the carotid bulbs on [id number]. Less than 50% stenosis of the proximal cervical portion of the left internal carotid artery (series 13 image 39; series 14 image 1). IMPRESSION: 1. No intracranial vessel occlusion. Significant stenosis of the left posterior cerebral artery with mild stenoses elsewhere as described above. 2. Possible stenosis of the proximal left vertebral artery near its origin at the aortic arch. 3. Less than 50% stenosis of the proximal cervical portion of the left internal carotid artery. Electronically signed by: Rick Ferguson 11/06/2016 7:19 AM Dictated Date/Time: 11/06/2016 6:58 AM
[2016-11-06] MEDS: CALCIUM 600MG + VIT D 400 IU TAB PO SCH (07:58)
[2016-11-06] MEDS ORDERED: ASPIRIN 81 MG ECTAB PO SCH (09:00)
[2016-11-06] MEDS ORDERED: PANTOprazole SOD 40 MG TAB PO SCH (09:00)
[2016-11-06] MEDS ORDERED: CHOLECALCIFEROL 1000 INTER.UNIT TAB PO SCH (09:00)
--- NOTE | 2016-11-06 09:26 | Neurology Consultation ---
Neurology Consultation Date of Consultation: Nov 06, 2016. Attending Physician: Jose Dowell M.D. Primary Care Physician: Shahana Arenas P.ASharon Reason for Consultation: Stroke History of Present Illness Source: patient, hospital records The patient is a 75-year-old female with a chief complaint of speech difficulty. Her symptoms began suddenly in the afternoon on November 04. She reports having a speech hesitancy but denies any associated difficulty with comprehension. She believes the symptoms was a bit intermittent at onset but became more persistent. She complains of an associated right-sided headache as well. The patient reports that both her speech hesitancy and headache have completely resolved. She denies experiencing any other associated neurological symptoms such as weakness of the arms or legs, feeling of heaviness of the limbs , sensory loss, vision changes, vertigo, or difficulty with walking or using her arms or legs or manipulating small objects. The patient denies a history of similar episodes in the past, she denies a history of stroke or TIA. The patient presented to the emergency department 1 day after symptom onset. I reviewed the CT of the head obtained at that time. The study reveals chronic small vessel ischemic change, no hemorrhage. Electrocardiogram revealed a normal sinus rhythm, 80 bpm. she was initially hypertensive with a blood pressure of 176/98. She has been afebrile. The patient has a history of hypertension and asthma. She reports that she has been taking daily low-dose aspirin for many years. She is physically active and reports having fairly good health for her age. Past Medical/Surgical History Medical Problems: (1) Aphasia Status: Acute (2) Dysarthria Status: Acute Family History There is no significant family history that would affect this patient's neurological evaluation and management at this time Social History Smokeless Tobacco Use: No Alcohol Use: none Drug Use: none Marital Status: Occupation Status: retired Allergies Coded Allergies: Penicillins (Unverified Allergy, Mild, 05/04/10) Shellfish (Unverified Allergy, Mild, 05/04/10) Sulfa Drugs (Unverified Allergy, Mild, 05/04/10) Current Inpatient Medications Current Inpatient Medications Medications (Trade) Dose Ordered Sig/Chris Route Start Time Stop Time Status Last Admin Dose Admin Miscellaneous Information (Pharmacist Discharge Med Rec Consult) 1 ea UD PRN N/A 11/05/16 14:15 12/05/16 14:14 Aspirin (Ecotrin Tab) 81 mg DAILY PO 11/06/16 09:00 12/06/16 08:59 11/06/16 07:58 81 MG Levothyroxine Sodium (Synthroid Tab) 100 mcg DAILYBB PO 11/06/16 06:00 12/06/16 06:59 11/06/16 06:12 100 MCG Calcium/Vitamin D (Caltrate Plus Tab) 1 tab BID PO 11/05/16 21:00 12/05/16 20:59 11/06/16 07:58 1 TAB Cholecalciferol (Vitamin D Tab) 1,000 inter.unit QAM PO 11/06/16 09:00 12/06/16 08:59 11/06/16 07:58 1,000 INTER.UNIT Pantoprazole Sodium (Protonix Tab) 40 mg QAM PO 11/06/16 09:00 12/06/16 08:59 11/06/16 07:58 40 MG Potassium Chloride/Sodium Chloride 1,000 ml @ 100 mls/hr Q10H IV 11/05/16 17:30 12/05/16 17:29 11/06/16 06:13 100 MLS/HR Ondansetron HCl (Zofran Inj) 4 mg Q6H PRN IV 11/05/16 14:30 12/05/16 14:29 Gadobutrol (Gadavist) 6 mmol UD PRN IV 11/05/16 23:15 11/09/16 23:14 Review of Systems A full 10 point review of systems was obtained from this patient with pertinent positives and negatives described in the history of present illness. All other systems reviewed and are negative. Physical Exam Vital Signs (Past 24 Hrs): Date Time Temp Pulse Resp B/P (MAP) Pulse Ox O2 Delivery O2 Flow Rate FiO2 11/06/16 08:24 36.5 73 18 122/69 (86) 99 11/06/16 04:09 36.8 69 18 126/73 (90) 96 Room Air 11/06/16 04:00 Room Air 11/06/16 01:44 121/65 (83) 11/06/16 00:00 Room Air 11/05/16 23:46 36.9 71 16 117/68 (84) 95 Room Air 11/05/16 20:18 37.0 74 16 149/89 (109) 94 Room Air 11/05/16 20:00 Room Air 11/05/16 17:48 36.7 69 20 162/91 Room Air 11/05/16 16:30 Room Air 11/05/16 16:16 158/85 11/05/16 16:13 68 19 97 11/05/16 16:01 155/94 11/05/16 15:58 67 19 96 11/05/16 15:46 183/88 11/05/16 15:43 75 14 11/05/16 15:31 163/91 11/05/16 15:28 68 17 97 11/05/16 15:16 172/97 11/05/16 15:13 72 21 95 11/05/16 15:08 73 22 98 11/05/16 15:01 161/82 11/05/16 14:53 69 19 97 11/05/16 14:46 165/96 11/05/16 14:31 172/85 11/05/16 14:23 75 19 92 11/05/16 14:16 156/80 11/05/16 14:08 68 19 97 11/05/16 14:06 65 20 160/89 97 Room Air 11/05/16 14:01 160/89 11/05/16 13:53 76 22 96 11/05/16 13:46 168/87 11/05/16 13:38 73 18 98 11/05/16 13:33 68 19 172/99 97 Room Air 11/05/16 13:26 91 19 162/86 97 Room Air 11/05/16 12:31 82 20 179/84 95 Room Air 11/05/16 12:28 96 Room Air 11/05/16 12:27 73 11/05/16 12:26 77 19 195/89 98 Room Air 11/05/16 12:00 36.9 80 20 176/98 98 Room Air The patient is a well-developed well-nourished elderly female, no acute distress. She is alert and oriented to person place and time. Recent and remote memory intact. Attention and concentration normal. There is perhaps a slight degree of speech hesitancy. No difficulty naming objects or repeating phrases, however. No gross dysarthria. Patient exhibits an age-appropriate fund of knowledge and normal vocabulary. Visual shel[place] full to confrontation. Visual acuity normal. Pupils equal round reactive to light and accommodation. Eye movements normal. Facial sensation intact bilaterally. There is perhaps a slight degree of left facial weakness noted with casual observation. Otherwise, no gross facial droop. Hearing intact. Palate elevates to midline. Shoulder shrug strength intact bilaterally. Tongue protrudes to midline. Sensation intact to light touch, temperature, vibration, and proprioception for all 4 limbs. Deep tendon reflexes are intact and symmetrical for the arms and legs. There is no dysdiadochokinesia or dysmetria with finger to nose or heel to govea bilaterally. There is perhaps slight impairment of facility of fine finger movements for the left hand. The optic disks and posterior segments cannot be adequately visualize with ophthalmoscopic examination due to relatively small patient pupil size. Carotid pulses normal bilaterally, no bruits to auscultation. Gait and station not tested due to safety concerns. Patient exhibits normal muscle strength and tone for all 4 limbs proximally and distally. There is no pronator drift. There is no atrophy. No abnormal movements observed. Laboratory Results Past 24 Hours: 11/06/16 04:09 Red Blood Count 4.08, Mean Corpuscular Volume 87.5, Mean Corpuscular Hemoglobin 27.9, Mean Corpuscular Hemoglobin Concent 31.9, Mean Platelet Volume 9.2, Neutrophils (%) (Auto) 55.6, Lymphocytes (%) (Auto) 22.4, Monocytes (%) (Auto) 9.6, Eosinophils (%) (Auto) 11.1, Basophils (%) (Auto) 1.0, Neutrophils # (Auto ) 5.40, Lymphocytes # (Auto) 2.18, Monocytes # (Auto) 0.93, Eosinophils # (Auto ) 1.08, Basophils # (Auto) 0.10 11/06/16 04:09 Test 11/05/16 12:49 11/05/16 12:50 11/05/16 12:53 11/05/16 13:18 Bedside Glucose 80 mg/dl (70-90) Erythrocyte Sedimentation Rate 18 mm/hr (0-21) Prothrombin Time 10.4 SECONDS (9.0-12.0) Prothromb Time International Ratio 1.0 (0.9-1.1) Activated Partial Thromboplast Time 24.6 SECONDS (21.0-31.0) Partial Thromboplastin Ratio 0.9 Estimated Average Glucose 120 mg/dl Hemoglobin A1c 5.8 % (4.5-5.6) Magnesium Level 2.1 mg/dl (1.8-2.4) Total Bilirubin 0.4 mg/dl (0.2-1) Direct Bilirubin 0.1 mg/dl (0-0.2) Aspartate Amino Transf (AST/SGOT) 20 U/L (15-37) Alanine Aminotransferase (ALT/SGPT) 27 U/L (12-78) Alkaline Phosphatase 72 U/L (45-117) Total Protein 7.4 gm/dl (6.4-8.2) Albumin 4.3 gm/dl (3.4-5.0) Lyme Disease IgG Antibody NEG (NEG) Bedside Prothrombin Time INR 1.0 (0.9-1.1) Urine Color YELLOW Urine Appearance CLEAR (CLEAR) Urine pH 6.0 (4.5-7.5) Urine Specific [place] 1.011 (1.000-1.030) Urine Protein NEG (NEG) Urine Glucose (UA) NEG (NEG) Urine Ketones NEG (NEG) Urine Occult Blood NEG (NEG) Urine Nitrite NEG (NEG) Urine Bilirubin NEG (NEG) Urine Urobilinogen NEG (NEG) Urine Leukocyte Esterase NEG (NEG) Test 11/06/16 04:09 White Blood Count 9.72 K/uL (4.8-10.8) Red Blood Count 4.08 M/uL (4.2-5.4) Hemoglobin 11.4 g/dL (12.0-16.0) Hematocrit 35.7 % (37-47) Mean Corpuscular Volume 87.5 fL (80-100) Mean Corpuscular Hemoglobin 27.9 pg (25-34) Mean Corpuscular Hemoglobin Concent 31.9 g/dl (32-36) Platelet Count 277 K/uL (130-400) Mean Platelet Volume 9.2 fL (7.4-10.4) Neutrophils (%) (Auto) 55.6 % Lymphocytes (%) (Auto) 22.4 % Monocytes (%) (Auto) 9.6 % Eosinophils (%) (Auto) 11.1 % Basophils (%) (Auto) 1.0 % Neutrophils # (Auto) 5.40 K/uL (1.4-6.5) Lymphocytes # (Auto) 2.18 K/uL (1.2-3.4) Monocytes # (Auto) 0.93 K/uL (0.11-0.59) Eosinophils # (Auto) 1.08 K/uL (0-0.5) Basophils # (Auto) 0.10 K/uL (0-0.2) RDW Standard Deviation 43.8 fL (36.4-46.3) RDW Coefficient of Variation 13.7 % (11.5-14.5) Immature Granulocyte % (Auto) 0.3 % Immature Granulocyte # (Auto) 0.03 K/uL (0.00-0.02) Anion Gap 5.0 mmol/L (3-11) Est Creatinine Clear Calc Drug Dose 52.0 ml/min Estimated GFR () 92.1 Estimated GFR (Non- 79.4 BUN/Creatinine Ratio 18.5 (10-20) Calcium Level 8.8 mg/dl (8.5-10.1) Total Creatine Kinase 66 U/L (26-192) Creatine Kinase MB 1.2 ng/ml (0.5-3.6) Creatine Kinase MB Ratio 1.8 (0-3.0) Troponin I < 0.015 ng/ml (0-0.045) Triglycerides Level 139 mg/dl (0-150) Cholesterol Level 208 mg/dl (0-200) HDL Cholesterol 44 mg/dl LDL Cholesterol, Calculated 136 mg/dl VLDL Cholesterol, Calculated 28 mg/dl Cholesterol/HDL Ratio 4.7 Imaging I reviewed the images and radiologist's interpretation of the recently completed brain MRI. There is evidence of an area of restricted diffusion, about 1 cm, within the right periventricular region consistent with an acute infarct. T2 and FLAIR images reveal extensive, chronic, small vessel ischemic disease. MR angiography of the head and neck reveal atherosclerotic changes, no hemodynamically significant stenosis. Impression Acute ischemic stroke, lacunar type, within the right cerebral hemisphere/ periventricular region. Initially, patient presented with significant speech hesitancy and a left facial droop. The symptoms are markedly improved today. Stroke etiology would be thrombotic ischemic. No evidence for atrial fibrillation. Stroke character not suggestive of cardioembolism. Stroke risk factors for this patient include age and history of hypertension. Furthermore, the stroke occurred while the patient had been taking daily low-dose aspirin consistently for many years. This patient also has rather significant, extensive chronic small vessel ischemic disease throughout her brain parenchyma. Plan Would switch from daily low-dose aspirin to Plavix 75 mg per day. Consider prescribing a statin. Monitor hypertension, optimize treatment. PT/OT/speech therapy No further immediate recommendations. Please contact me if I may be of further assistance.
--- NOTE | 2016-11-06 10:04 | Medical Student: [facility] ---
Med Student History & Physical Date & Time of Service: Nov 06, 2016 at 09:04 Chief Complaint: CVA Primary Care Physician: Shahana Aernas P.A. History of Present Illness Source: patient, family (Son) Ms. Rm is a 75yo female with a medical history significant for hypertension , hypothyroidism, asthma, and GERD who reported that she began to have trouble speaking on 11/04/16 in the late afternoon. While sitting in her backyard and chatting, Ms. Rm's neighbor indicated to her that she was having difficulty understanding her speech. Ms. Rm was aware that her speech was not clear; she reported that she knew what she wanted to say, but was unable to speak clearly. At this time, the neighbor also noticed that Ms. Rm had a left facial droop. These problems persisted into the next day (11/05/16) and, therefore, Ms. Rm's son brought her to the ED that morning. While waiting in the ED, the patient reported a right parietal headache that lasted 15- 20minutes. The patient denied any other neurological symptoms, such as paresis of the extremities, sensory changes, or visual changes. She reports no similar prior events. Past Medical/Surgical History Past medical history: 1.) hypertension 2.) hypothyroidism 3.) asthma 4.) GERD Past surgical history: 1.) bladder surgery (due to overflow incontinence?) 2.) hysterectomy 3.) tonsillectomy 4.) appendectomy Family History Patient reports no family history of medical conditions. Social History Smoking Status: Never Smoker Smokeless Tobacco Use: No Alcohol Use: occasionally (< 1 glass of wine per month ) Drug Use: none Marital Status: Housing status: lives alone Occupational Status: retired ([employer] employee for 25yrs) Allergies Coded Allergies: Penicillins (Unverified Allergy, Mild, 05/04/10) Shellfish (Unverified Allergy, Mild, 05/04/10) Sulfa Drugs (Unverified Allergy, Mild, 05/04/10) Medications Apoaequorin (Prevagen), 1 TAB PO DAILY Ascorbic Acid (Vitamin C), 500 MG PO NEEDED Aspirin (Aspirin Ec), 81 MG PO DAILY Bromelains (Bromelain), 1-2 TAB PO DAILY Calcium Carbonate (Calcium), 600 MG PO DAILY Cholecalciferol (Vitamin D-3), 1,000 INTERUNIT PO DAILY Hctz/Losartan (Hyzaar 25MG/100MG), Unknown Dose PO QAM Levothyroxine Sodium (Levothyroxine Sodium), 100 MCG PO DAILY Naproxen (Aleve), 440 MG PO DAILY Omeprazole (Prilosec), 20 MG PO QAM Review of Systems Constitutional: No fever, No chills, No sweats, No weight loss, No weakness Eyes: + problem reported (patient reports left "lazy eye"), No worsening of vision, No eye pain, No redness, No discharge, No diplopia ENT: + nasal symptoms (mild nasal congestion), No hearing loss, No sore throat , No tinnitus Respiratory: No cough, No sputum, No wheezing, No shortness of breath, No dyspnea on exertion, No dyspnea at rest Cardiovascular: No chest pain, No orthopnea, No edema, No claudication Abdomen: No pain, No nausea, No vomiting, No diarrhea, No constipation Musculoskeletal: + joint pain (left knee osteoarthritis) Neurologic: No memory loss, No paralysis, No weakness, No numbness/tingling, No vertigo, No balance problems Psychiatric: No depression symptoms Integumentary: No rash, No itch Allergic / Immunologic: + seasonal allergies Physical Exam Vital Signs (24 Hours) Date Time Temp Pulse Resp B/P (MAP) Pulse Ox O2 Delivery O2 Flow Rate FiO2 11/06/16 08:24 36.5 73 18 122/69 (86) 99 11/06/16 04:09 36.8 69 18 126/73 (90) 96 Room Air 11/06/16 04:00 Room Air 11/06/16 01:44 121/65 (83) 11/06/16 00:00 Room Air 11/05/16 23:46 36.9 71 16 117/68 (84) 95 Room Air 11/05/16 20:18 37.0 74 16 149/89 (109) 94 Room Air 11/05/16 20:00 Room Air 11/05/16 17:48 36.7 69 20 162/91 Room Air 11/05/16 16:30 Room Air 11/05/16 16:16 158/85 11/05/16 16:13 68 19 97 11/05/16 16:01 155/94 11/05/16 15:58 67 19 96 11/05/16 15:46 183/88 11/05/16 15:43 75 14 11/05/16 15:31 163/91 11/05/16 15:28 68 17 97 11/05/16 15:16 172/97 11/05/16 15:13 72 21 95 11/05/16 15:08 73 22 98 11/05/16 15:01 161/82 11/05/16 14:53 69 19 97 11/05/16 14:46 165/96 11/05/16 14:31 172/85 11/05/16 14:23 75 19 92 11/05/16 14:16 156/80 11/05/16 14:08 68 19 97 11/05/16 14:06 65 20 160/89 97 Room Air 11/05/16 14:01 160/89 11/05/16 13:53 76 22 96 11/05/16 13:46 168/87 11/05/16 13:38 73 18 98 11/05/16 13:33 68 19 172/99 97 Room Air 11/05/16 13:26 91 19 162/86 97 Room Air 11/05/16 12:31 82 20 179/84 95 Room Air 11/05/16 12:28 96 Room Air 11/05/16 12:27 73 11/05/16 12:26 77 19 195/89 98 Room Air 11/05/16 12:00 36.9 80 20 176/98 98 Room Air General Appearance: WD/WN, no apparent distress Head: normocephalic, atraumatic Eyes: normal inspection, PERRL, EOMI (left eye) ENT: hearing grossly normal, pharynx normal Neck: supple, no adenopathy, thyroid normal Respiratory/Chest: chest non-tender, lungs clear, normal breath sounds, no respiratory distress Cardiovascular: regular rate, rhythm, no edema Abdomen/GI: normal bowel sounds, non tender, soft Extremities/Musculoskelatal: normal inspection, normal capillary refill, no pedal edema Neurologic/Psych: no motor/sensory deficits, alert, normal mood/affect, normal reflexes, oriented x 3, + 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 (CNVII- left sided facial weakness /droop), + facial droop (slight left facial droop; evident when patient smiles) Skin: normal color, no rash Diagnostics Laboratory Results Results Past 24 Hours Test 11/05/16 12:49 11/05/16 12:50 11/05/16 12:53 11/05/16 13:18 Range/Units Bedside Glucose 80 70-90 mg/dl White Blood Count 10.67 4.8-10.8 K/uL Red Blood Count 4.43 4.2-5.4 M/uL Hemoglobin 12.7 12.0-16.0 g/dL Hematocrit 38.9 37-47 % Mean Corpuscular Volume 87.8 80-100 fL Mean Corpuscular Hemoglobin 28.7 25-34 pg Mean Corpuscular Hemoglobin Concent 32.6 32-36 g/dl Platelet Count 292 130-400 K/uL Mean Platelet Volume 9.6 7.4-10.4 fL Neutrophils (%) (Auto) 68.4 % Lymphocytes (%) (Auto) 14.9 % Monocytes (%) (Auto) 8.7 % Eosinophils (%) (Auto) 7.0 % Basophils (%) (Auto) 0.8 % Neutrophils # (Auto) 7.29 1.4-6.5 K/uL Lymphocytes # (Auto) 1.59 1.2-3.4 K/uL Monocytes # (Auto) 0.93 0.11-0.59 K/uL Eosinophils # (Auto) 0.75 0-0.5 K/uL Basophils # (Auto) 0.09 0-0.2 K/uL RDW Standard Deviation 43.6 36.4-46.3 fL RDW Coefficient of Variation 13.5 11.5-14.5 % Immature Granulocyte % (Auto) 0.2 % Immature Granulocyte # (Auto) 0.02 0.00-0.02 K/uL Erythrocyte Sedimentation Rate 18 0-21 mm/hr Prothrombin Time 10.4 9.0-12.0 SECONDS Prothromb Time International Ratio 1.0 0.9-1.1 Activated Partial Thromboplast Time 24.6 21.0-31.0 SECONDS Partial Thromboplastin Ratio 0.9 Sodium Level 140 136-145 mmol/L Potassium Level 3.4 3.5-5.1 mmol/L Chloride Level 105 98-107 mmol/L Carbon Dioxide Level 25 21-32 mmol/L Anion Gap 10.0 3-11 mmol/L Blood Urea Nitrogen 18 7-18 mg/dl Creatinine 0.86 0.60-1.20 mg/dl Est Creatinine Clear Calc Drug Dose 44.0 ml/min Estimated GFR () 75.5 Estimated GFR (Non- 65.2 BUN/Creatinine Ratio 20.9 10-20 Random Glucose 91 70-99 mg/dl Estimated Average Glucose 120 mg/dl Hemoglobin A1c 5.8 4.5-5.6 % Calcium Level 9.9 8.5-10.1 mg/dl Magnesium Level 2.1 1.8-2.4 mg/dl Total Bilirubin 0.4 0.2-1 mg/dl Direct Bilirubin 0.1 0-0.2 mg/dl Aspartate Amino Transf (AST/SGOT) 20 15-37 U/L Alanine Aminotransferase (ALT/SGPT) 27 12-78 U/L Alkaline Phosphatase 72 45-117 U/L Total Creatine Kinase 117 26-192 U/L Creatine Kinase MB 2.6 0.5-3.6 ng/ml Creatine Kinase MB Ratio 2.2 0-3.0 Troponin I < 0.015 0-0.045 ng/ml Total Protein 7.4 6.4-8.2 gm/dl Albumin 4.3 3.4-5.0 gm/dl Lyme Disease IgG Antibody NEG NEG Lyme Disease IgM Antibody EQUIVOCAL NEG Bedside Prothrombin Time INR 1.0 0.9-1.1 Urine Color YELLOW Urine Appearance CLEAR CLEAR Urine pH 6.0 4.5-7.5 Urine Specific [place] 1.011 1.000-1.030 Urine Protein NEG NEG Urine Glucose (UA) NEG NEG Urine Ketones NEG NEG Urine Occult Blood NEG NEG Urine Nitrite NEG NEG Urine Bilirubin NEG NEG Urine Urobilinogen NEG NEG Urine Leukocyte Esterase NEG NEG Test 11/05/16 20:27 11/06/16 04:09 Range/Units Total Creatine Kinase 89 66 26-192 U/L Creatine Kinase MB 1.3 1.2 0.5-3.6 ng/ml Creatine Kinase MB Ratio 1.5 1.8 0-3.0 Troponin I < 0.015 < 0.015 0-0.045 ng/ml White Blood Count 9.72 4.8-10.8 K/uL Red Blood Count 4.08 4.2-5.4 M/uL Hemoglobin 11.4 12.0-16.0 g/dL Hematocrit 35.7 37-47 % Mean Corpuscular Volume 87.5 80-100 fL Mean Corpuscular Hemoglobin 27.9 25-34 pg Mean Corpuscular Hemoglobin Concent 31.9 32-36 g/dl Platelet Count 277 130-400 K/uL Mean Platelet Volume 9.2 7.4-10.4 fL Neutrophils (%) (Auto) 55.6 % Lymphocytes (%) (Auto) 22.4 % Monocytes (%) (Auto) 9.6 % Eosinophils (%) (Auto) 11.1 % Basophils (%) (Auto) 1.0 % Neutrophils # (Auto) 5.40 1.4-6.5 K/uL Lymphocytes # (Auto) 2.18 1.2-3.4 K/uL Monocytes # (Auto) 0.93 0.11-0.59 K/uL Eosinophils # (Auto) 1.08 0-0.5 K/uL Basophils # (Auto) 0.10 0-0.2 K/uL RDW Standard Deviation 43.8 36.4-46.3 fL RDW Coefficient of Variation 13.7 11.5-14.5 % Immature Granulocyte % (Auto) 0.3 % Immature Granulocyte # (Auto) 0.03 0.00-0.02 K/uL Sodium Level 142 136-145 mmol/L Potassium Level 3.9 3.5-5.1 mmol/L Chloride Level 108 98-107 mmol/L Carbon Dioxide Level 29 21-32 mmol/L Anion Gap 5.0 3-11 mmol/L Blood Urea Nitrogen 14 7-18 mg/dl Creatinine 0.73 0.60-1.20 mg/dl Est Creatinine Clear Calc Drug Dose 52.0 ml/min Estimated GFR () 92.1 Estimated GFR (Non- 79.4 BUN/Creatinine Ratio 18.5 10-20 Random Glucose 86 70-99 mg/dl Calcium Level 8.8 8.5-10.1 mg/dl Triglycerides Level 139 0-150 mg/dl Cholesterol Level 208 0-200 mg/dl HDL Cholesterol 44 mg/dl LDL Cholesterol, Calculated 136 mg/dl VLDL Cholesterol, Calculated 28 mg/dl Cholesterol/HDL Ratio 4.[address] HEAD WITHOUT CONTRAST (CT) CLINICAL HISTORY: Left-sided facial droop. Right-sided head pain. Speech difficulties. Suspected stroke. IMPRESSION: 1. No acute intracranial findings 2. Scattered lacunar infarcts and moderate white matter disease likely on a small vessel basis Electronically signed by: Sebastián Patel M.D. 11/05/2016 1:06 PM Dictated Date/Time: 11/05/2016 1:04 PM CHEST ONE VIEW PORTABLE CLINICAL HISTORY: 75 years-old Female presenting with Stroke. TECHNIQUE: Portable upright AP view of the chest was obtained. COMPARISON: 05/04/2010. IMPRESSION: 1. No acute cardiopulmonary disease. Electronically signed by: Rick Ferguson 11/05/2016 12:50 PM Dictated Date/Time: 11/05/2016 12:49 PM MR ANGIOGRAM OF THE BRAIN CLINICAL HISTORY: 75-year-old female with stroke symptoms, small acute right periventricular infarct. IMPRESSION: 1. No intracranial vessel occlusion. Significant stenosis of the left posterior cerebral artery with mild stenoses elsewhere as described above. 2. Possible stenosis of the proximal left vertebral artery near its origin at the aortic arch. 3. Less than 50% stenosis of the proximal cervical portion of the left internal carotid artery. MRI OF THE BRAIN WITHOUT AND WITH IV CONTRAST CLINICAL HISTORY: Stroke mental status change IMPRESSION: 1. Small acute right periventricular infarct. 2. Atrophy. 3. Chronic small vessel change throughout. Electronically signed by: Rikki Galvez M.D. 11/06/2016 6:43 AM Dictated Date/Time: 11/06/2016 6:41 AM Impression Assessment and Plan Ms. Rm is a 75yo female with a medical history significant for hypertension , hypothyroidism, asthma, and GERD who presented to the ED with difficulty speaking and left facial droop. CVA --the patient's left facial droop can be attributed to weakness related to a small right periventricular infarct. Given the patient's history of small vessel disease (evident on brain imaging), the patient most likely had a small ischemic stroke due to atherosclerosis. --the difficulty with speech/dysarthria is most likely due to the left facial weakness. --will complete a stroke work-up: --the following have already been completed- Brain MRI- small right periventricular infarct, atrophy, and chronic small vessel change throughout. MRA of head and neck- No intracranial vessel occlusion. Significant stenosis of the left posterior cerebral artery with mild stenoses elsewhere. Possible stenosis of the proximal left vertebral artery near its origin at the aortic arch. Less than 50% stenosis of the proximal cervical portion of the left internal carotid artery. EKG- normal sinus rhythm --Echo will be completed on 11/06/16 --will continue to hold anti-hypertensive medication to allow for permissive hypertension --modify stroke risk factors: total cholesterol goal of 100-200; LDL <100; HgbA1c <7 --will start atorvastatin 40mg PO; lifestyle modifications (cardiovascular exercise, low fat diet) --will change from aspirin to clopidogrel because the patient failed aspirin therapy; she had a stroke while taking aspirin 81mg daily. --consider PT/OT/speech consult Hypertension --as mentioned above, will continue to hold Hyzaar 25mg/100mg (HCTZ/losartan) PO daily to allow for permissive hypertension; 175/95-150/80 while in the hospital. Hypothyroidism --will continue levothyroxine 100mcg PO daily Level of Care Telemetry Advanced Directives Existing Advance Directive: No Existing Living Will: No Existing Power of Assistant Portfolio Manager: No
--- NOTE | 2016-11-06 15:20 | ECHOCARDIOGRAM REPORT ---
*NOTICE TO RECEIVING [employer] This information is strictly Confidential and protected under [place] law. [place] law prohibits you from making any further disclosure of this information unless further disclosure is expressly permitted by the written consent of the person to whom it pertains or is authorized by law. A general authorization for the release of medical or other information is not sufficient for this purpose. Hospital accepts no responsibility if the information is made available to any other person, INCLUDING THE PATIENT. Interpretation Summary * Name: MELO BELLO Study Date: 11/06/2016 11:17 AM BP: 135/86 mmHg * Patient Location: C.2E\S\E201\S\1 HR: 69 * : 1940 (M/d/yyyy) Gender: Female Height: 59 in * Age: 75 yrs Ethnicity: CA Weight: 137 lb * Ordering Physician: Jose Dowell * Referring Physician: Shahana Arenas * Performed By: Ellie Reyes RCS * * Reason For Study: CEREBRAL ISCHEMIA / EMBOLUS * BSA: 1.6 m2 * -- Conclusions -- * 1. Normal LV size, mild concentric LVH. * 2. Normal LV systolic function. LVEF 60-65%. No regional wall motion abnormalities. * 3. Normal RV size and function. * 4. Mild mitral regurgitation. * 5. Negative saline contrast study for interatrial shunt. * 6. No prior studies for comparison. Procedure Details * A complete two-dimensional transthoracic echocardiogram was performed (2D, M-mode, Doppler and color flow Doppler). Left Ventricle * The left ventricle is grossly normal size. * There is mild concentric left ventricular hypertrophy. * Ejection Fraction = 60-65%. * No regional wall motion abnormalities noted. Right Ventricle * The right ventricle is grossly normal size. * The right ventricular systolic function is normal as assessed by tricuspid annular plane systolic excursion (TAPSE) (normal >1.5 cm). Atria * Borderline left atrial enlargement. * Right atrial size is normal. * There is no Doppler evidence for an atrial septal defect. Mitral Valve * The mitral valve is grossly normal. * Mitral stenosis is absent. * There is mild mitral regurgitation. Tricuspid Valve * The tricuspid valve is not well visualized, but is grossly normal. * There is no tricuspid stenosis. * There is trace tricuspid regurgitation. Aortic Valve * The aortic valve opens well. * The aortic valve is trileaflet. * No hemodynamically significant valvular aortic stenosis. * Trace aortic regurgitation. Pulmonic Valve * The pulmonary valve is inadequately visualized, but the Doppler data is adequate for interpretation. * Pulmonic stenosis is absent. * Trace pulmonic valvular regurgitation. Great Vessels * The aortic root and proximal ascending aorta are normal sized. Pericardium/Pleural * There is no pericardial effusion. Great Vessels * There is no evidence of pulmonary hypertension. The PA systolic pressure is less than 36 mmHg. MMode 2D Measurements and Calculations IVSd 1.4 cm IVSs 1.4 cm LVIDd 3.6 cm LVIDs 1.9 cm LVPWd 1.2 cm LVPWs 1.3 cm IVS/LVPW 1.2 FS 45.9 % EDV(Teich) 53.7 ml ESV(Teich) 11.7 ml EF(Teich) 78.2 % EDV(cubed) 45.9 ml ESV(cubed) 7.3 ml EF(cubed) 84.2 % % IVS thick 4.7 % % LVPW thick 10.0 % LV mass(C)d 153.3 grams LV mass(C)dI 97.6 grams/m\S\2 LV mass(C)s 78.6 grams LV mass(C)sI 50.1 grams/m\S\2 SV(Teich) 42.0 ml SI(Teich) 26.8 ml/m\S\2 SV(cubed) 38.6 ml SI(cubed) 24.6 ml/m\S\2 Ao root diam 2.8 cm Ao root area 6.3 cm\S\2 ACS 2.0 cm LA dimension 3.7 cm LA/Ao 1.3 LVOT diam 1.9 cm LVOT area 3.0 cm\S\2 LVAd ap4 31.8 cm\S\2 LVLd ap4 8.0 cm EDV(MOD-sp4) 101.6 ml EDV(sp4-el) 107.8 ml LVAs ap4 20.6 cm\S\2 LVLs ap4 7.2 cm ESV(MOD-sp4) 48.6 ml ESV(sp4-el) 50.1 ml EF(MOD-sp4) 52.2 % EF(sp4-el) 53.5 % LVAd ap2 30.3 cm\S\2 LVLd ap2 7.8 cm EDV(MOD-sp2) 96.4 ml EDV(sp2-el) 99.8 ml LVAs ap2 20.4 cm\S\2 LVLs ap2 7.1 cm ESV(MOD-sp2) 49.6 ml ESV(sp2-el) 49.6 ml EF(MOD-sp2) 48.5 % EF(sp2-el) 50.3 % LVLd %diff -2.35 % EDV(MOD-bp) 100.4 ml LVLs %diff -1.28 % ESV(MOD-bp) 49.1 ml EF(MOD-bp) 51.1 % SV(MOD-sp4) 53.0 ml SI(MOD-sp4) 33.8 ml/m\S\2 SV(MOD-sp2) 46.7 ml SI(MOD-sp2) 29.8 ml/m\S\2 SV(MOD-bp) 51.3 ml SI(MOD-bp) 32.7 ml/m\S\2 SV(sp4-el) 57.7 ml SI(sp4-el) 36.7 ml/m\S\2 SV(sp2-el) 50.2 ml SI(sp2-el) 32.0 ml/m\S\2 Doppler Measurements and Calculations MV E max anderson 108.9 cm/sec MV A max anderson 126.2 cm/sec MV E/A 0.86 MV P1/2t max anderson 122.4 cm/sec MV P1/2t 63.0 msec MVA(P1/2t) 3.5 cm\S\2 MV dec slope 569.3 cm/sec\S\2 MV dec time 0.16 sec Ao V2 max 138.7 cm/sec Ao max PG 7.7 mmHg Ao max PG (full) 3.4 mmHg MICHELLE(V,A) 2.2 cm\S\2 MICHELLE(V,D) 2.2 cm\S\2 AI max anderson 371.7 cm/sec AI max PG 55.3 mmHg AI dec slope 147.6 cm/sec\S\2 AI P1/2t 737.5 msec LV V1 max PG 4.3 mmHg LV V1 max 104.1 cm/sec MR max anderson 574.6 cm/sec MR max PG 132.1 mmHg PA V2 max 102.4 cm/sec PA max PG 4.2 mmHg TR max anderson 238.5 cm/sec
[2016-11-06] MEDS ORDERED: CLOP1TAB5 PO (15:41)
[2016-11-06] MEDS ORDERED: SIMV20TA5 PO (15:41)
--- NOTE | 2016-11-06 15:43 | Discharge Instructions ---
Discharge Instructions Date of Service Nov 06, 2016. Admission Reason for Admission: CVA Discharge Discharge Diagnosis / Problem: cva Discharge Goals Goal(s): Improve function Activity Recommendations Activity Limitations: resume your previous activity . Current Hospital Diet Patient's current hospital diet: AHA Diet (Heart Healthy) Discharge Diet Recommended Diet: Low Sodium Diet (2gm Na) Pending Studies Studies pending at discharge: no Laboratory Results Hemoglobin A1c Test 11/05/16 12:50 Range/Units Estimated Average Glucose 120 mg/dl Hemoglobin A1c 5.8 H 4.5-5.6 % Lipid Panel Test 11/06/16 04:09 Range/Units Triglycerides Level 139 0-150 mg/dl Cholesterol Level 208 H 0-200 mg/dl HDL Cholesterol 44 mg/dl Cholesterol/HDL Ratio 4.7 LDL Cholesterol, Calculated 136 mg/dl Medical Emergencies . Who to Call and When: Medical Emergencies: If at any time you feel your situation is an emergency, please call 911 immediately. . Non-Emergent Contact Non-Emergency issues call your: Primary Care Provider . . "Provider Documentation" section prepared by Solo Kuo. . VTE Core Measure Inpt VTE Proph given/why not?: SCD's
--- NOTE | 2016-11-07 08:52 | Pharmacy Progress Note ---
Pharmacist Stroke Counseling Date of Service Nov 07, 2016. Scope Pharmacy has been consulted to provide medication discharge counseling for this patient admitted with ischemic stroke/hemorrhagic stroke/ transient ischemic attack as per the Pharmacist Discharge Counseling for Stroke Patients Protocol. Medications on Discharge New Medications: Clopidogrel Bisulfate (Plavix) 75 Mg Tab 1 TAB PO DAILY for 30 Days, #30 TAB 5 Refills Simvastatin (Zocor) 20 Mg Tab 1 TAB PO HS for 30 Days, #30 TAB 5 Refills Continued Medications: Apoaequorin (Prevagen) 10 Mg Cap 1 TAB PO DAILY Ascorbic Acid (Vitamin C) 500 Mg Tab 500 MG PO NEEDED Bromelains (Bromelain) 500 Mg Tab 1-2 TAB PO DAILY Calcium Carbonate (Calcium) 600 Mg Tab 600 MG PO DAILY Cholecalciferol (Vitamin D-3) 1,000 Unit Cap 1000 INTERUNIT PO DAILY Hctz/Losartan (Hyzaar 25MG/100MG) Unknown Strength Tab Unknown Dose PO QAM, #30 TAB Levothyroxine Sodium (Levothyroxine Sodium) 100 Mcg Tab 100 MCG PO DAILY for 90 Days, #90 TAB 3 Refills Omeprazole (Prilosec) 20 Mg Capcr 20 MG PO QAM, CAP TAKE 1/2 HOUR BEFORE BREAKFAST Discontinued Medications: Aspirin (Aspirin Ec) 81 Mg Tab 81 MG PO DAILY Naproxen (Aleve) 220 Mg Tab 440 MG PO DAILY, TAB Action The above medications, specifically ones for stroke treatment/prophylaxis, have been reviewed in detail with the patient and/or patient parts sales representative(s) prior to discharge. This includes indication, common adverse reactions, drug interactions, and medication administration. Medication counseling has been employed using the teach-back method to ensure understanding. Outcome The patient and/or patient parts sales representative(s) have demonstrated understanding of the medications. Please note, they are aware that the pharmacist will call them within 72 hours post-discharge to confirm that the appropriate medications are being taken and answer any further medication related questions the patient might have at that time. Contact information Individual to be contacted: Martha Rm Relationship to patient (if applicable): Pt Phone number: [phone] Best time to call: Lunchtime Additional comments: Very pleasant Thank you for allowing pharmacy to be involved in the care of this patient. Please call [phone] or [phone] with any additional questions Discharge Information Spoke with her extensively about Plavix. Dr Kuo was still deciding if he wanted to prescribe Zocor or defer it to the PCP.
--- NOTE | 2016-11-10 14:22 | Pharmacy Progress Note ---
Pharmacist Post D/C Phone Note Medications Dose Route/Sig Max Daily Dose Days Date Category Plavix (Clopidogrel Bisulfate) 75 Mg Tab 1 Tab PO DAILY 30 11/06/16 Rx Zocor (Simvastatin) 20 Mg Tab 1 Tab PO HS 30 11/06/16 Rx Prevagen (Apoaequorin) 10 Mg Cap 1 Tab PO DAILY 11/05/16 Reported Calcium (Calcium Carbonate) 600 Mg Tab 600 Mg PO DAILY 11/05/16 Reported Vitamin C (Ascorbic Acid) 500 Mg Tab 500 Mg PO NEEDED 11/05/16 Reported Bromelain (Bromelains) 500 Mg Tab 1-2 Tab PO DAILY 11/05/16 Reported Vitamin D-3 (Cholecalciferol) 1,000 Unit Cap 1,000 Interunit PO DAILY 11/05/16 Reported Levothyroxine Sodium 100 Mcg Tab 100 Mcg PO DAILY 90 11/05/16 Reported Hyzaar 25MG/100MG (HCTZ/Losartan Potassium) Unknown Strength Tab Unknown Dose PO QAM 11/05/16 Reported Date of phone call: Nov 10, 2016. Individual with whom pharmacist spoke to: Martha The following questions were reviewed during the phone call with responses listed below each: Can you tell me the medications that you are currently taking as well as when and how you take each medication? - Patient was able to tell me all of the medications that she is currently taking. She had gathered all of her medications during the phone call and we reviewed them one by one. She informed me that her provider had told her to stop taking the omeprazole. She reports no issues with heartburn/acid reflux at this time. When have you missed any doses of your medications? - She told me that she has not missed any doses of medications. She informed me that she keeps a pillbox at home to help with organizing her medications. I stressed the importance of taking her medications daily, especially the ones for stroke. What side effects are you having from your medications? - She is not currently having any side effects from her medications. We talked about the side effect of muscle pain with statins. She was telling me that she has had muscle spasms, but they have started before she was even on the medication. What questions do you have about your medications? - She was telling me about her arthritis in her hands. She had been taking Naproxen, but this medication was discontinued in the hospital. I had recommended that she try tylenol to see if that would help with her pain. She was also interested in using something topically for pain, and she informed me that next time she is in to her pharmacy, she will ask the pharmacist for something OTC. What problems are you having obtaining your medications? - She is not currently having any issues with obtaining her medications When is your next appointment with your primary care doctor? - Her next appointment with her provider is next Thursday. Additional comments: - Patient was very happy and appreciative that we called and talked with her today. As per the Pharmacist Discharge Counseling for Stroke Patients Protocol, this phone call has been completed within 72 hours of discharge. Thank you for allowing us to be involved in the care of this patient. Thank you for allowing us to be involved in the care of this patient.
[2016-11-11 19:00] LABS: 18KDIGG BAND NONREACTIVE (NONREACTIVE); 23KDIGG BAND NONREACTIVE (NONREACTIVE); 23KDIGM BAND REACTIVE (NONREACTIVE); 28KDIGG BAND NONREACTIVE (NONREACTIVE); 30KDIGG BAND NONREACTIVE (NONREACTIVE); 39KDIGG BAND NONREACTIVE (NONREACTIVE); 39KDIGM BAND REACTIVE (NONREACTIVE); 41KDIGG BAND REACTIVE (NONREACTIVE); 41KDIGM BAND NONREACTIVE (NONREACTIVE); 45KDIGG BAND NONREACTIVE (NONREACTIVE); 58KDIGG BAND REACTIVE (NONREACTIVE); 66KDIGG BAND REACTIVE (NONREACTIVE); 93KDIGG BAND NONREACTIVE (NONREACTIVE)
--- NOTE | 2016-11-23 23:03 | Discharge Summary ---
Discharge Summary Date of Service Nov 23, 2016. Discharge Summary Admission Date: Nov 05, 2016 at 14:19 Discharge Date: Nov 06, 2016 Discharge Disposition: Home Principal Diagnosis: ischemic stroke Medication Reconciliation New Medications: Clopidogrel Bisulfate (Plavix) 75 Mg Tab 1 TAB PO DAILY for 30 Days, #30 TAB 5 Refills Simvastatin (Zocor) 20 Mg Tab 1 TAB PO HS for 30 Days, #30 TAB 5 Refills Continued Medications: Apoaequorin (Prevagen) 10 Mg Cap 1 TAB PO DAILY Ascorbic Acid (Vitamin C) 500 Mg Tab 500 MG PO NEEDED Bromelains (Bromelain) 500 Mg Tab 1-2 TAB PO DAILY Calcium Carbonate (Calcium) 600 Mg Tab 600 MG PO DAILY Cholecalciferol (Vitamin D-3) 1,000 Unit Cap 1000 INTERUNIT PO DAILY Hctz/Losartan (Hyzaar 25MG/100MG) Unknown Strength Tab Unknown Dose PO QAM, #30 TAB Levothyroxine Sodium (Levothyroxine Sodium) 100 Mcg Tab 100 MCG PO DAILY for 90 Days, #90 TAB 3 Refills Discontinued Medications: Aspirin (Aspirin Ec) 81 Mg Tab 81 MG PO DAILY Naproxen (Aleve) 220 Mg Tab 440 MG PO DAILY, TAB Hospital Course Patient is a 75-year-old who presented with difficulty speaking and left-sided facial droop was found to have a small ischemic stroke. Neurology was consulted. There is no evidence of atrial fibrillation. Patient was therefore placed on Plavix and Zocor. Her symptoms dramatically improved on hospital day #2 and she was deemed stable for discharge to home. Echocardiogram showed an EF of 60-65%. MRI revealed small diffusion defect 1 cm consistent with ischemic stroke in the right periventricular area. Total Time Spent: Greater than 30 minutes This includes examination of the patient, discharge planning, medication reconciliation, and communication with other providers. Discharge Instructions Please refer to the electronic Patient Visit Report (Discharge Instructions) for additional information.
== END 2016-11-06 16:42 | disposition home or self-care (01) | DRG 66 ==
LOC: C.EDB 12:00 → C.2E 14:19 → ENRESERV 15:29
PROVIDERS: ADMIT Hospitalist; ATTEND Hospitalist
DX: I63.8 Other cerebral infarction (principal); I10 Essential (primary) hypertension; E03.9 Hypothyroidism, unspecified; K21.9 Gastro-esophageal reflux disease without esophagitis; J45.909 Unspecified asthma, uncomplicated; Z79.82 Long term (current) use of aspirin; Z79.899 Other long term (current) drug therapy

== ENCOUNTER → 2017-01-29 | Outpatient (CLI) | payer OTHER, BC ==
[~2017-01-29] MED LIST changes: +APOA1CAP PO; -ASCA500; +ASCO-63 PO; -ASPEC81; +BROM500T2 PO; -BROMELAIN; +CALC-393 PO; -CALCIUM; +CHOL1CAP67 PO; +CLOP1TAB5 PO; -CYAN500T; +HYZ/10015 PO; +LEVO100T7 PO; -LEVO100T84 PO; -MEDLIST; -MULT-506; +SIMV20TA5 PO; -VERA240T20; -VITA100C4; -VITAMIN B WITH C
[2017-01-29 13:46] LABS: ALB/GLOB RATIO 1.3 (0.9-2); ALKALINE PHOSPHATASE 73 U/L (45-117); AST/SGOT 15 U/L (15-37); BLOOD UREA NITROGEN 19 mg/dl (7-18); BUN/CREATININE RATIO 24.3 (10-20); CALCIUM 9.1 mg/dl (8.5-10.1); CARBON DIOXIDE 26 mmol/L (21-32); CHLORIDE 104 mmol/L (98-107); CREATININE 0.77 mg/dl (0.60-1.20); GLUCOSE 89 mg/dl (70-99); HDL CHOLESTEROL 48 mg/dl; POTASSIUM 3.5 mmol/L (3.5-5.1); SODIUM 139 mmol/L (136-145)
[2017-01-29 13:58] LABS: ALT/SGPT 20 U/L (12-78); CHOLESTEROL 147 mg/dl (0-200); CHOLESTEROL/HDL RATIO 3.1; LDL CHOLESTEROL CALCULATED 71 mg/dl; THYROID STIMULATING HORMONE 0.383 uIu/ml (0.300-4.500); TRIGLYCERIDES 138 mg/dl (0-150); VERY LOW DENSITY LIPOPROT CALC 28 mg/dl
== END | disposition home or self-care (01) ==
LOC: C.LABBC 10:36
PROVIDERS: ATTEND Physician Assistant
DX: M79.1 Myalgia (principal)

== ENCOUNTER 2017-08-11 10:54 | Inpatient (IN) | payer OTHER, BC ==
[2017-07-17 10:37] VITALS: Ht 149.9 cm; Wt 65.7 kg
--- NOTE | 2017-07-17 11:23 | PAT Medication Instructions ---
Service Date Jul 17, 2017. Current Home Medication List Acetaminophen (Tylenol), 325 MG PO UD PRN for Pain Ascorbic Acid (Vitamin C), 500 MG PO NEEDED Bromelains (Bromelain), 1-2 TAB PO QAM Calcium Carbonate (Calcium), 600 MG PO QDL Cholecalciferol (Vitamin D-3), 1,000 INTERUNIT PO QAM Clopidogrel Bisulfate (Plavix), 1 TAB PO QAM Cyanocobalamin (Vitamin B-12), 500 MCG PO QAM Hctz/Losartan (Hyzaar 25MG/100MG), Unknown Dose PO QAM Levothyroxine Sodium (Levothyroxine Sodium), Unknown Dose PO QAM Memantine Hcl (Namenda), 5 MG PO BID Pantoprazole (Protonix), 20 MG PO QAM Simvastatin (Zocor), 1 TAB PO HS Medication Instructions For Your Scheduled Surgery -Contact your neurologist for instructins for: Clopidogrel Bisulfate (Plavix), 1 TAB PO QAM MUST BE HELD FOR 7 DAYS FOR SPINAL ANESTHESIA - Hold the following medications 2 weeks prior to surgery: Bromelains (Bromelain), 1-2 TAB PO QAM - Hold the following medications the morning of surgery: Ascorbic Acid (Vitamin C), 500 MG PO NEEDED Calcium Carbonate (Calcium), 600 MG PO QDL Cholecalciferol (Vitamin D-3), 1,000 INTERUNIT PO QAM Cyanocobalamin (Vitamin B-12), 500 MCG PO QAM Hctz/Losartan (Hyzaar 25MG/100MG), Unknown Dose PO QAM - Take the following medications the morning of surgery with a sip of water: Acetaminophen (Tylenol), 325 MG PO UD PRN for Pain (if needed, can be taken up to four hours before surgery) Levothyroxine Sodium (Levothyroxine Sodium), Unknown Dose PO QAM Memantine Hcl (Namenda), 5 MG PO BID Pantoprazole (Protonix), 20 MG PO QAM - Take the following medications as scheduled the night before surgery: Acetaminophen (Tylenol), 325 MG PO UD PRN for Pain (if needed) Ascorbic Acid (Vitamin C), 500 MG PO NEEDED Memantine Hcl (Namenda), 5 MG PO BID Simvastatin (Zocor), 1 TAB PO HS If you have any questions please call us at [phone] or [phone] or [phone]
[2017-07-17 12:09] LABS: BASO ABS # 0.09 K/uL (0-0.2); EOS % 3.6 %; EOS ABS # 0.32 K/uL (0-0.5); HEMATOCRIT 39.6 % (37-47); HEMOGLOBIN 13.1 g/dL (12.0-16.0); IG# 0.03 K/uL (0.00-0.02); LYMPH % 16.3 %; LYMPH ABS # 1.46 K/uL (1.2-3.4); MEAN CORPUSCULAR HEMOGLOBIN 29.4 pg (25-34); MEAN CORPUSCULAR HGB CONC 33.1 g/dl (32-36); MEAN PLATELET VOLUME 9.3 fL (7.4-10.4); MONO % 9.4 %; MONO ABS # 0.84 K/uL (0.11-0.59); NEUT % 69.4 %; PLATELET COUNT 282 K/uL (130-400); RED CELL DISTRIBUTION WIDTH CV 13.5 % (11.5-14.5); RED CELL DISTRIBUTION WIDTH SD 44.1 fL (36.4-46.3); WHITE BLOOD COUNT 8.94 K/uL (4.8-10.8)
[2017-07-17 12:23] LABS: PTT PATIENT 23.5 SECONDS (21.0-31.0)
[2017-07-17 13:10] LABS: CALCIUM 9.7 mg/dl (8.5-10.1); CREATININE 0.87 mg/dl (0.60-1.20); POTASSIUM 4.3 mmol/L (3.5-5.1)
--- NOTE | 2017-08-05 13:47 | HISTORY & PHYSICAL EXAMINATION ---
DATE OF ADMISSION: 08/11/2017 CHIEF COMPLAINT: Left knee pain and discomfort. HISTORY OF PRESENT ILLNESS: A 76-year-old female referred by my partner Dr. Cleary for surgical treatment of the left knee. She has got a long history of left knee pain and discomfort that has gotten worse over the past year, particularly. She has had multiple injections which have become less successful over time. She describes pain in the medial side of her knee. Does give her out on her intermittently as well. She had multiple friends who had their knees fixed with knee replacement and she would like to have her pain gone and be able to be more active with less pain. Pain is increased with weightbearing. PAST MEDICAL HISTORY: 1. Hypertension. 2. Elevated cholesterol. 3. TIA without any residual sequelae but on Plavix. 4. Gastroesophageal reflux disease. 5. Arthritis. PAST SURGICAL HISTORY: Include: 1. Bladder surgery. 2. Hysterectomy. 3. Appendectomy. 4. Tonsillectomy. ALLERGIES: SHELLFISH, SULFA, CODEINE, PENICILLIN, AND DONEPEZIL. Reaction to penicillin is unknown. CURRENT MEDICINES: Include: 1. Plavix 75 mg a day. 2. Losartan/hydrochlorothiazide 100/25 once a day. 3. Vitamin D 1000 international units a day. 4. Calcium 600 mg a day. 5. Vitamin C 500 mg a day. 6. Bromelain 500 mg a day. 7. Simvastatin 20 mg at bedtime. 8. Pantoprazole 20 mg a day. 9. Vitamin B12 once a day. 10. Tylenol. 11. Memantine 5 mg twice a day. SOCIAL HISTORY: A 76-year-old female. Does not smoke. No significant alcohol intake. FAMILY HISTORY: Noncontributory. REVIEW OF SYSTEMS: Negative for diabetes, neurologic problem, vascular problem, bleeding disorders. She is on Plavix for mini stroke, a year or so ago. Her medical doctor is Dr. Shahana Arenas. PHYSICAL EXAMINATION: GENERAL: Reveals a pleasant elderly female. Looks to be in pretty good health. HEENT: Benign. NECK: Supple. No lymphadenopathy. LUNGS: Clear to auscultation. HEART: Has a regular rate and rhythm. ABDOMEN: Soft, nontender, nondistended. EXTREMITIES: Grossly neurovascularly intact except as follows: Examination of the left knee reveals patient walks independently. She does limp on a side just a little bit. She has got varus alignment to her knee. She does have a varus thrust with weightbearing. She has got bony hypertrophy medially. She is tender over the medial joint line with range of motion is 5-120. No instability. No pain with hip motion. IMAGING DATA: X-rays of left knee reviewed. Shows advanced left knee medial compartment DJD. She has complete loss of her medial joint space. She has got osteophytes off the medial femoral condyle and medial tibial plateau. ASSESSMENT: A 76-year-old white female with advanced left knee degenerative joint disease. She has failed conservative care and would like to have her left knee replaced. PLAN: We will take her to the operating room and do a left total knee replacement. The risks and benefits of this procedure were explained to the patient including but not limited to DVT, PE, , infection, neurological injury, vascular injury, bleeding problem, pain, limited range of motion, stiffness, failure to relieve her symptoms, incomplete relief of symptoms, need for further surgery in future, fracture, leg length inequality, nerve palsy, need for blood transfusion, etc. The patient understands and desires. Informed consent was obtained. Will stop her Plavix 1 week preop. Will use Plavix for DVT prophylaxis. She is planning to be discharged to home using [facility] home health program and then go to [facility]. GAY
[~2017-08-11] VITALS: Ht 149.9 cm; Wt 65.7 kg
[~2017-08-11 10:54] MED LIST changes: +ACET-1311 PO; +ACETAMINOPHEN 500 MG TAB PO SCH; -APOA1CAP PO; +BUPIVACAINE 0.5 % 5 MG/1 ML PF 10ML VIAL ONE; +BUPIVACAINE LIPOSOME 266 MG, BUPIVACAINE/EPINEPHRINE INJ 50 ML, SODIUM CHLORIDE 0.9% PF... INFIL SCH; +CEFAZOLIN 2000MG IV PUSH 15 ML IV SCH; -CLOP1TAB5 PO; +CYAN500T PO; +FAMOTIDINE 20 MG TAB PO SCH; +FENTANYL CITRATE INJ 50 MCG/1 ML 2 ML VIAL ONE; +GABAPENTIN 300 MG CAP PO SCH; +LACTATED RINGER'S 1000ML 1,000 ML IV SCH; +LACTATED RINGER'S 1000ML 500 ML IV SCH; +LACTATED RINGER'S 1000ML IV SCH; +MEMA5TAB2 PO; +METOCLOPRAMIDE HCL 10 MG TAB PO SCH; +MIDAZOLAM HCL 1 MG/ML 2ML VIAL ONE; +PLAVIX75 PO; +PRT/20 PO; +ROPIVACAINE 0.5% 5 MG/ML 30 ML VIAL ONE
--- NOTE | 2017-08-11 11:13 | History & Physical Bridge Note ---
H&P Re-Evaluation Bridge Note: I have examined the patient, reviewed the History & Physical and in the interval since the performance of the History & Physical I have noted the following changes of clinical significance: No changes noted
[2017-08-11 11:45] VITALS: BP 149/78; PULSE 69; TEMP 37; O2SAT 96
[2017-08-11] MEDS ORDERED: LIDOCAINE HCL 2% 2 ML VIAL (20MG/ML) ONE (12:35)
[2017-08-11] MEDS ORDERED: PROPOFOL IV EMULSION 10 MG/ML 20 ML VIAL IV ONE (12:35)
[2017-08-11] MEDS ORDERED: ONDANSETRON INJ 2 MG/ML 2 ML VIAL ONE (12:35)
[2017-08-11] MEDS ORDERED: BACITRACIN 50000 UNIT VIAL ONE (12:59)
[2017-08-11] MEDS ORDERED: BUPIVACAINE LIPOSOME 1/3% 266 MG/20 ML VIAL INFIL ONE (12:59)
[2017-08-11] MEDS ORDERED: SODIUM CHLORIDE 0.9% PF 50 ML VIAL ONE (12:59)
[2017-08-11] MEDS ORDERED: EpINEphrine INJ 1MG/ML AMP 1 MG/ML AMP ONE (13:00)
[2017-08-11] MEDS ORDERED: BUPIVACAINE 0.25% 30 ML VIAL ONE (13:00)
--- NOTE | 2017-08-11 14:56 | [facility] Post Operative Brief Note ---
Immediate Operative Summary Operative Date Aug 11, 2017. Pre-Operative Diagnosis Degenerative Joint Disease, Left Knee Post-Operative Diagnosis Degenerative Joint Disease, Left Knee Procedure(s) Performed Left Total Knee Arthroplasty Surgeon Dr. Fabian Cagle Launchman Surgeon(s) Nolan Marley PA-C Estimated Blood Loss 50ML Findings Consistent with Post-Op Diagnosis Fluids (cc crystalloids) 1100 cc Specimens Permanent Specimen: A.) Left Knee Bone and Tissue Drains None Anesthesia Type MAC Spinal Regional Complication(s) none Disposition Accompanied Pt To Recover: no Disposition: Recovery Room / PACU
[2017-08-11] MEDS ORDERED: NON-FORMULARY MEDICATION (Ascorbic Acid (Vitamin C) 500 MG) PO SCH (15:00)
[2017-08-11] MEDS ORDERED: ZOLPIDEM TARTRATE 5 MG TAB PO PRN (15:00)
[2017-08-11] MEDS ORDERED: BISACODYL 10 MG SUPP PR PRN (15:00)
[2017-08-11] MEDS ORDERED: ONDANSETRON INJ 2 MG/ML 2 ML VIAL IV PRN (15:00)
[2017-08-11] MEDS ORDERED: METOCLOPRAMIDE HCL INJ 5 MG/ML 2 ML VIAL IV PRN (15:00)
[2017-08-11] MEDS ORDERED: ALUMINUM/MAGNESIUM/SIMETH (MAALOX MAX) 30 ML UDC PO PRN (15:00)
[2017-08-11] MEDS ORDERED: HYDROmorphone INJ 0.5 MG/0.5 ML SYR IV PRN (15:00)
[2017-08-11] MEDS ORDERED: MAGNESIUM HYDROXIDE SUSP 30 ML UDC PO PRN (15:00)
--- NOTE | 2017-08-11 15:28 | Anesthesiology Progress Note ---
Anesthesia Post Op Note Date & Time Aug 11, 2017 at 15:27 Vital Signs Pain Intensity: 0 Vital Signs Past 12 Hours Date Time Temp Pulse Resp B/P (MAP) Pulse Ox O2 Delivery O2 Flow Rate FiO2 08/11/17 15:20 72 16 136/64 100 Nasal Cannula 2 08/11/17 15:10 77 16 142/69 99 Oxymask 3 08/11/17 15:01 36.1 73 16 128/65 99 Oxymask 5 08/11/17 11:45 37 69 18 149/78 96 Room Air Notes Mental Status: alert / awake / arousable, participated in evaluation Pt Amnestic to Procedure: Yes Nausea / Vomiting: adequately controlled Pain: adequately controlled Airway Patency, RR, SpO2: stable & adequate BP & HR: stable & adequate Hydration State: stable & adequate Anesthetic Complications: no major complications apparent
--- NOTE | 2017-08-11 15:46 | DIAGNOSTIC IMAGING REPORT ---
L KNEE 1 OR 2 VIEWS ROUTINE HISTORY: 76 years-old Female AP/LATERAL IN PACU LEFT KNEE status post left knee total joint replacement. Degenerative joint disease. COMPARISON: Left knee radiographs 08/05/2017 TECHNIQUE: 2 views of left knee FINDINGS: Postoperative changes from recent left knee total joint arthroplasty with patellar resurfacing. Alignment is satisfactory without periprosthetic fracture or retained foreign body. Anterior midline skin juan alberto are noted along with postsurgical soft tissue swelling and deep tissue air. IMPRESSION: Left knee total joint arthroplasty and patellar resurfacing with satisfactory alignment. The above report was generated using voice recognition software. It may contain grammatical, syntax or spelling errors. Electronically signed by: Olivier Morrison M.D. 08/11/2017 3:45 PM Dictated Date/Time: 08/11/2017 3:43 PM
[2017-08-11 16:00] VITALS: BP 121/71; PULSE 78; TEMP 37.6; O2SAT 100
[2017-08-11] MEDS ORDERED: TRANEXAMIC ACID INJ 1,000 MG in SODIUM CHLORIDE 0.9% 100ML 100 ML IV SCH (16:30)
[2017-08-11 16:43] VITALS: BP 135/84; PULSE 71; TEMP 36.5; O2SAT 93
[2017-08-11 16:59] VITALS: BP 146/84; PULSE 64; TEMP 36.7; O2SAT 96
[2017-08-11] MEDS: D5W AND 1/2NSS + 20MEQ KCL 1,000 ML IV SCH (17:02)
[2017-08-11] MEDS: KETOROLAC TROMETHAMINE 15 MG/ML VIAL IV. SCH (17:47)
[2017-08-11] MEDS: FERROUS GLUCONATE 324 MG TAB PO SCH (17:48)
[2017-08-11 18:07] VITALS: BP 154/83; PULSE 78; TEMP 37.6; O2SAT 96
[2017-08-11] MEDS: TRAMADOL HCL 50 MG TAB PO PRN (18:36)
[2017-08-11 19:02] VITALS: BP 156/84; PULSE 67; TEMP 37; O2SAT 98
[2017-08-11] MEDS: SIMVASTATIN 20 MG TAB PO SCH (21:02)
[2017-08-11] MEDS: SENNA 8.6 MG TAB PO SCH (21:02)
[2017-08-11] MEDS: MEMANTINE 5 MG TAB PO SCH (21:02)
[2017-08-11] MEDS: DOCUSATE SODIUM 100 MG CAP PO SCH (21:02)
[2017-08-11] MEDS: ACETAMINOPHEN 500 MG TAB PO SCH (21:03)
[2017-08-11] MEDS: CEFAZOLIN IV 1,000 MG in SYRINGE 0 ML IV SCH (21:14)
--- NOTE | 2017-08-12 00:10 | OPERATIVE REPORT ---
DATE OF OPERATION: 08/11/2017 SURGEON: Fabian Cagle MD FIBREGLASS GUN HAND: DEO Goss PREOPERATIVE DIAGNOSIS: Left knee degenerative joint disease. POSTOPERATIVE DIAGNOSIS: Left knee degenerative joint disease. PROCEDURE PERFORMED: Left cemented posterior stabilized total knee arthroplasty. COMPLICATIONS: None. ESTIMATED BLOOD LOSS: 50 mL. FLUID REPLACEMENT: 1100 mL crystalloid fluid replacement. ANESTHESIA: Spinal with adductor canal block. DRAINS: None. SPECIMENS: Left knee sent for pathology. TOURNIQUET TIME: 51 minutes at 300 mmHg. OPERATIVE INDICATIONS: Patient is a 76-year-old fairly active, independent female who has had a long history of bilateral knee pain and discomfort, left side greater than the right. She has been through extensive conservative care. Continued to be limited by her left knee pain. X-rays revealed advanced DJD. Patient elected to proceed with operative treatment. OPERATIVE FINDINGS: Operative findings revealed advanced left knee DJD. She had extensive grade 4 changes of medial femoral condyle and medial tibial plateau. She had pretty extensive grade 4 changes of the patellofemoral joint as well. The lateral compartment was pretty well preserved. She had a moderate sized joint effusion. She had about 10 degrees of flexion contracture. OPERATIVE IMPLANTS: Operative implants consisted of: 1. Biomet Vanguard size 62.5 left posterior stabilized femoral component. 2. Biomet size 67 tibial tray. 3. A 10 mm posterior stabilized polyethylene insert. 4. A 28 x 8 all poly patella. OPERATIVE PROCEDURE: Patient was taken to the operating room, identified and placed on the operating table in supine position. All contact areas were appropriately padded. IV antibiotics provided by anesthesia team. A spinal anesthetic and adductor canal block was provided in the holding area. Painting catheter was placed in sterile fashion. A left thigh tourniquet was then placed and left lower extremity was then prepped and draped in usual sterile fashion. The left leg was elevated and exsanguinated with Esmarch and tourniquet placed at 300 mmHg. An anterior approach to the left knee was then performed through a longitudinal incision centered over the patella. Sharp dissection was carried through the subcutaneous tissues down below the extensor mechanism. A medial parapatellar arthrotomy incision was made. Some subperiosteal dissection was carried out medially. The fat pad resected from beneath the patellar tendon. Lateral patellofemoral ligament was released. Patella was everted and knee was flexed. The osteophytes were taken off the distal femur. ACL and PCL were then released from the distal femur. The tibia subluxated anteriorly. The external tibial alignment jig was then placed in the anterior face of the tibia and adjusted 14 mm medially. Proximal tibial cut was made to remove about a millimeter of bone from the most deficient aspect of the medial tibial plateau. Some osteophytes were taken off medial and posteromedially. Tibia sized to a size 67. Attention was then drawn to the femur. The distal femur was entered with a sharp drill bit. Intramedullary canal was suctioned. A left 5 degree cutting block was pinned in place. Distal femoral cut was made to take an additional 3 mm of bone off the distal femur. The femur was then sized to a size 62.5. We did downsize this slightly. The AP cutting block was pinned parallel to the epicondylar axis, which was 4 degrees of external rotation. The anterior cut, anterior chamfer, posterior cut, and posterior chamfer cuts were made. Box cutting guide was placed and adjusted slight lateral and the box cut was made. The knee was flexed. The remnants of the medial and lateral menisci were excised. The osteophytes were taken off the posterior aspect of the femur. A trial femoral component was placed. Tibial tray was pinned in maximum external rotation, drill and stem punch were used to create defect in proximal tibia for the tibial tray. The knee was then trialed and 10 mm insert fit most appropriately. Attention was then drawn to the patella. The patella was cleaned of all soft tissues. Patella thickness measured 18 mm in thickness and was cut down to 11. It was sized to a size 28 patella. Lug holes were drilled for a 28 patella. Lateral osteophyte was removed. Patella button was placed. Knee was taken through range of motion and the patella tracked nicely with no thumbs test. Attention was then drawn toward placement of permanent components. All trial components were removed. Bone plug was placed in the distal femur to limit blood loss. A single pack of Palacos G cement was mixed. A left size 62.5 posterior stabilized femoral component, size 67 tibial tray, 12 mm posterior stabilized polyethylene insert, and a 31 x 8 all poly patella were then cemented in place. Knee was brought out into full extension until cement hardened. A final cement check was then performed. Pericapsular tissues were injected with a total of 100 mL of a combination of 20 mL of Exparel, 30 mL of normal saline, 50 mL of 0.25% Marcaine with epinephrine. The patient did not receive any tranexamic acid. The extensor mechanism was then closed with a combination of #1 PDS suture and #1 Vicryl suture in a [id number] fashion. Extensor mechanism was checked and found to be intact. Subcutaneous tissues were then closed with 2-0 Dexon suture in a buried interrupted fashion. Skin was closed with skin juan alberto. Leg was then cleaned and dried and a sterile dressing of Xeroform, 4 x 4, sterile cast padding and Franklyn bandage were applied. The patient then transferred to the recovery room in stable condition. The patient tolerated the procedure with no complications. All needle and sponge counts were correct at the end of the operation. I attest to the content of the Intraoperative Record and any orders documented therein. Any exceptions are noted below. MTDD
[2017-08-12 00:15] VITALS: O2SAT 96
[2017-08-12] MEDS: KETOROLAC TROMETHAMINE 15 MG/ML VIAL IV. SCH ×4 (00:42→18:45)
[2017-08-12] MEDS: D5W AND 1/2NSS + 20MEQ KCL 1,000 ML IV SCH ×2 (03:19→12:37)
[2017-08-12 04:00] VITALS: BP 108/66; PULSE 68; TEMP 36.5; O2SAT 96
[2017-08-12] MEDS: CEFAZOLIN IV 1,000 MG in SYRINGE 0 ML IV SCH (05:38)
[2017-08-12] MEDS: ACETAMINOPHEN 500 MG TAB PO SCH ×3 (05:39→20:56)
[2017-08-12 07:09] LABS: HEMATOCRIT 30.6 % (37-47); HEMOGLOBIN 10.3 g/dL (12.0-16.0); MEAN CELL VOLUME 86.7 fL (80-100); MEAN CORPUSCULAR HEMOGLOBIN 29.2 pg (25-34); MEAN CORPUSCULAR HGB CONC 33.7 g/dl (32-36); MEAN PLATELET VOLUME 8.8 fL (7.4-10.4); PLATELET COUNT 214 K/uL (130-400); RED CELL DISTRIBUTION WIDTH CV 13.1 % (11.5-14.5); RED CELL DISTRIBUTION WIDTH SD 41.7 fL (36.4-46.3)
[2017-08-12 07:23] VITALS: BP 119/71; PULSE 68; TEMP 36.5; O2SAT 96
[2017-08-12 07:35] LABS: CALCIUM 8.5 mg/dl (8.5-10.1); CREATININE 0.95 mg/dl (0.60-1.20); POTASSIUM 3.3 mmol/L (3.5-5.1)
[2017-08-12] MEDS ORDERED: POTASSIUM CHLORIDE 20 MEQ TABCR PO ONE ×2 (08:00→18:00)
[2017-08-12] MEDS: FERROUS GLUCONATE 324 MG TAB PO SCH ×3 (08:30→17:45)
[2017-08-12] MEDS: ASPIRIN 81 MG ECTAB PO SCH (08:57)
[2017-08-12] MEDS: MULTIVITAMIN TAB PO SCH (08:57)
[2017-08-12] MEDS: MEMANTINE 5 MG TAB PO SCH ×2 (08:57→20:06)
[2017-08-12] MEDS: CYANOCOBALAMIN 500 MCG TAB (VIT B-12) PO SCH (08:57)
[2017-08-12] MEDS: CHOLECALCIFEROL 1000 INTER.UNIT TAB PO SCH (08:57)
[2017-08-12] MEDS: DOCUSATE SODIUM 100 MG CAP PO SCH ×2 (08:57→20:05)
[2017-08-12] MEDS: CLOPIDOGREL BISULFATE 75 MG TAB PO SCH (08:57)
[2017-08-12] MEDS: PANTOprazole SOD 40 MG TAB PO SCH (08:58)
[2017-08-12] MEDS: TRAMADOL HCL 50 MG TAB PO PRN (08:59)
[2017-08-12] MEDS ORDERED: PANTOprazole SOD 40 MG TAB PO SCH (09:00)
[2017-08-12] MEDS ORDERED: BROMELAIN PO SCH (09:00)
--- NOTE | 2017-08-12 11:00 | Anesthesiology Progress Note ---
Anesthesia Post Op Note Date & Time Aug 12, 2017 at 10:59 Vital Signs Vital Signs Past 12 Hours Date Time Temp Pulse Resp B/P (MAP) Pulse Ox O2 Delivery O2 Flow Rate FiO2 08/12/17 07:23 36.5 68 119/71 (87) 96 Room Air 08/12/17 07:20 Room Air 08/12/17 04:00 36.5 68 16 108/66 (80) 96 Room Air 08/12/17 00:15 96 Nasal Cannula 2.0 Notes Mental Status: alert / awake / arousable, participated in evaluation Pt Amnestic to Procedure: Yes Nausea / Vomiting: adequately controlled Pain: adequately controlled Airway Patency, RR, SpO2: stable & adequate BP & HR: stable & adequate Hydration State: stable & adequate Neuraxial Anesthesia: sensory block resolved Anesthetic Complications: no major complications apparent
[2017-08-12 11:09] VITALS: BP 148/75; PULSE 72; TEMP 36.7; O2SAT 95
[2017-08-12] MEDS ORDERED: FRRG PO (11:31)
[2017-08-12] MEDS ORDERED: ASPI-320 PO (11:31)
[2017-08-12] MEDS ORDERED: ACET-24 PO (11:31)
[2017-08-12] MEDS ORDERED: ULT50X PO (11:31)
[2017-08-12] MEDS: CALCIUM 600MG + VIT D 400 IU TAB PO SCH (12:36)
[2017-08-12 15:49] VITALS: BP 122/72; PULSE 76; TEMP 37.3; O2SAT 95
--- NOTE | 2017-08-12 20:17 | PROGRESS NOTE ---
DATE: 08/12/2017 SUBJECTIVE: A 76-year-old female postop day 1 from a left knee replacement. She is doing pretty well. Pain has been controlled. Mostly thigh discomfort . No chest pain or shortness of breath. Not feeling dizzy or lightheaded. OBJECTIVE: VITAL SIGNS: Temperature 37.3. Vital signs stable. GENERAL: Physical examination reveals a pleasant elderly female sitting up in her bedside chair, looks comfortable. EXTREMITIES: Examination of the left leg reveals the leg to be well aligned. Dressing is clean, dry, and intact. Patient can dorsiflex and plantarflex her foot appropriately. She is neurologically intact. LABORATORY DATA: Hemoglobin 10.3, hematocrit 30.6. Electrolytes reveal potassium 3.3. ASSESSMENT: A 76-year-old female postop day 1 from a left knee replacement, doing pretty well. Pain is reasonably well controlled. Potassium is a bit low and we will supplement that. She is anemic, but without symptoms. PLAN: 1. DVT prophylaxis including thigh high TEDs, SCDs, and 1 baby aspirin a day. We are also going to just keep her on her Plavix and we will then use that for DVT prophylaxis. 2. PT/OT. Weight bear as tolerated. Left total knee protocol. 3. Pain control. Doing well with current pain regimen. 4. Hypokalemia. We will supplement potassium and recheck tomorrow. 5. Anemia. She is anemic, but asymptomatic. We will continue iron supplementation. 6. Disposition: She is hoping to be discharged to [facility] for a brief rehab stay once medically stable.
--- NOTE | 2017-08-12 20:20 | Discharge Instructions ---
Discharge Instructions Date of Service Aug 12, 2017. Admission Reason for Admission: Left Knee Degenerative Joint Disease Discharge Discharge Diagnosis / Problem: Left Knee Replacement Discharge Goals Goal(s): Decrease discomfort, Improve function, Increase independence, Improve disease control, Therapeutic intervention Activity Recommendations Activity Level: Assistance Required Therapies: Physical Therapy, Occupational Therapy Weightbearing Status: Left weightbearing . Additional Information Patient informed of condition: Yes Advance Directives: No DNR: No Level of Care: Acute Rehab Communicable Disease: Yes Prognosis: Improving Instructions / Follow-Up Instructions / Follow-Up ACTIVITY RECOMMENDATIONS: Physical Therapy: * You will go to physical therapy three times each week for four to six weeks after your surgery in order to regain your knee range of motion and to retrain your knee to work properly. * It is just as important to make sure you are getting your knee perfectly straight as it is to regain your knee bend. * Taking a pain pill an hour before therapy can help you have a more productive and comfortable therapy session. Home Exercise: * You were shown a series of exercises (heel props, heel slides, etc.) in the hospital. Do these exercises three to four times each day including the exercises you were shown in physical therapy. Walking: * Get up and walk several times each day. For the first four weeks, try not to stand or walk for more than one hour at a time. If you do stand or walk for more than one hour, you will not hurt anything, but your knee and leg will likely swell. * As you feel comfortable, you may change from the walker or crutches to a cane and then to independent walking. MEDICATIONS: New Medicine: * You will likely be taking one or more of these medications: 1. Tramadol - A quick and shorter-acting pain medication. Take one to two tablets every four to six hours to lessen your pain. 2. Iron Sulfate - Take two times each day for the month after surgery to help you replace the blood lost during surgery. 3. Plavix - Thins your blood to lessen the chance of forming a blood clot. * The most common side effects of pain medicine and iron are nausea and constipation. If nausea or constipation is too much of a problem or if you have any questions about your new medicines or doses, call [facility] at . We will try to help you manage these issues. VERY IMPORTANT TO READ AND REVIEW" b Pain: * The immediate post-operative period after knee replacement surgery is often quite painful. * You are given a prescription for pain medicine. You should take it, as directed, when you need it, especially before physical therapy and before going to bed. Pain that interferes with sleep is very common and can last several months. * You will likely need pain medicine for the first four to six weeks. It will not stop all of the pain. The pain will lessen and as you feel better, you may change to milder pain medicine such as Tylenol. * The most common side effects of pain medicine are nausea and constipation, so don't take more than you need. SPECIAL CARE INSTRUCTIONS: TEDs/Elastic Stockings: * The white elastic stockings help limit swelling and prevent blood clots from forming in your legs. The more you wear them, the more they work. * Wear them for six weeks after knee replacement surgery and four weeks after partial knee replacement. Prevention of Infection: * Take antibiotics one hour before any dental cleaning, dental work, urological procedure, gastrointestinal procedure or any invasive surgery in order to prevent your new joint from getting infected. * You may get the antibiotics from the doctor performing the procedure or you may call our office at before and we will call in a prescription to the pharmacy of your choice. Things to Watch For: * Drainage from the incision site that occurs more than one week after your surgery. * Severely increased knee/leg pain or swelling. * Increased redness at the incision site. * Fever above 102 degrees Fahrenheit. * Unusual chest pain or shortness of breath. * Unusual pain or burning with urination. Call [facility] at with any of the above problems or if you have any questions about your medicines or recovery. FOLLOW UP VISIT: Make an appointment to see your doctor for approximately two weeks after surgery for a progress check and staple removal by calling the office at . Current Hospital Diet Patient's current hospital diet: Regular Diet Discharge Diet Recommended Diet: Regular Diet Procedures Procedures Performed: Left Total Knee Arthroplasty Pending Studies Studies pending at discharge: no Medical Emergencies . Who to Call and When: Medical Emergencies: If at any time you feel your situation is an emergency, please call [phone] immediately. . Non-Emergent Contact Non-Emergency issues call your: Surgeon . . "Provider Documentation" section prepared by Fabian Cagle. . Core Measure Problem Core Measures: None
[2017-08-12] MEDS: SIMVASTATIN 20 MG TAB PO SCH (20:55)
[2017-08-12] MEDS: SENNA 8.6 MG TAB PO SCH (20:56)
[2017-08-12 22:57] VITALS: BP 146/82; PULSE 74; TEMP 36.4; O2SAT 95
[2017-08-13] MEDS: KETOROLAC TROMETHAMINE 15 MG/ML VIAL IV. SCH ×3 (00:19→12:30)
[2017-08-13] MEDS: ACETAMINOPHEN 500 MG TAB PO SCH ×3 (05:03→21:56)
[2017-08-13 05:49] LABS: CALCIUM 9.2 mg/dl (8.5-10.1); CREATININE 0.8 mg/dl (0.60-1.20)
[2017-08-13 06:46] VITALS: BP 151/73; PULSE 65; TEMP 37.1; O2SAT 97
[2017-08-13] MEDS: DOCUSATE SODIUM 100 MG CAP PO SCH ×2 (07:26→21:00)
[2017-08-13] MEDS: FERROUS GLUCONATE 324 MG TAB PO SCH ×3 (07:26→17:45)
[2017-08-13] MEDS: MULTIVITAMIN TAB PO SCH (07:27)
[2017-08-13] MEDS: ASPIRIN 81 MG ECTAB PO SCH (07:27)
[2017-08-13] MEDS: CHOLECALCIFEROL 1000 INTER.UNIT TAB PO SCH (07:27)
[2017-08-13] MEDS: CLOPIDOGREL BISULFATE 75 MG TAB PO SCH (07:27)
[2017-08-13] MEDS: PANTOprazole SOD 40 MG TAB PO SCH (07:28)
[2017-08-13] MEDS: CYANOCOBALAMIN 500 MCG TAB (VIT B-12) PO SCH (07:28)
[2017-08-13] MEDS: TRAMADOL HCL 50 MG TAB PO PRN ×2 (07:34→18:57)
--- NOTE | 2017-08-13 07:57 | PROGRESS NOTE ---
DATE: 08/13/2017 SUBJECTIVE: A 76-year-old white female postop day 2 from a left knee replacement. Patient is doing quite well. Pain has been controlled. No chest pain or shortness of breath. Not feeling dizzy or lightheaded. OBJECTIVE: VITAL SIGNS: Temperature is 37.1. Vital signs stable. GENERAL: Reveals a pleasant, middle-aged female. She is sitting up in her bedside chair, looks pretty comfortable. EXTREMITIES: Examination of her left leg reveals the dressing to be clean, dry, and intact. Calf is soft and supple. She is neurologically intact. LABORATORY DATA: Potassium improved at 5.0. Sodium is improved as well. ASSESSMENT: A 76-year-old white female postop day 2 from left knee replacement, doing pretty well. Her electrolytes are improved. PLAN: 1. DVT prophylaxis including thigh-high TEDs, SCDs, and Plavix. Also on 1 baby aspirin a day. 2. PT/OT. Weight bear as tolerated. Left total knee protocol. 3. Pain control, doing well with current pain regimen. 4. Disposition: Plan to discharge to [facility] once accepted.
[2017-08-13] MEDS: MEMANTINE 5 MG TAB PO SCH ×2 (08:53→21:56)
[2017-08-13 09:13] VITALS: BP 130/84
[2017-08-13 09:52] VITALS: BP 162/86; PULSE 90; TEMP 37.1; O2SAT 97
[2017-08-13] MEDS: CALCIUM 600MG + VIT D 400 IU TAB PO SCH (12:28)
[2017-08-13 15:17] VITALS: BP 149/73; PULSE 80; TEMP 37.3; O2SAT 96
[2017-08-13] MEDS: SENNA 8.6 MG TAB PO SCH (21:00)
[2017-08-13] MEDS: SIMVASTATIN 20 MG TAB PO SCH (21:56)
[2017-08-13 23:01] VITALS: BP 133/80; PULSE 90; TEMP 36.7; O2SAT 96
[2017-08-14] MEDS: TRAMADOL HCL 50 MG TAB PO PRN ×4 (00:05→16:13)
[2017-08-14] MEDS: ACETAMINOPHEN 500 MG TAB PO SCH ×3 (06:23→21:26)
[2017-08-14 06:52] VITALS: BP 162/86; PULSE 90; TEMP 37.1; O2SAT 98
[2017-08-14] MEDS: FERROUS GLUCONATE 324 MG TAB PO SCH ×3 (08:30→17:45)
[2017-08-14] MEDS: DOCUSATE SODIUM 100 MG CAP PO SCH ×2 (08:43→21:00)
[2017-08-14] MEDS: ASPIRIN 81 MG ECTAB PO SCH (08:43)
[2017-08-14] MEDS: MEMANTINE 5 MG TAB PO SCH ×2 (08:44→21:25)
[2017-08-14] MEDS: MULTIVITAMIN TAB PO SCH (08:44)
[2017-08-14] MEDS: PANTOprazole SOD 40 MG TAB PO SCH (08:45)
[2017-08-14] MEDS: CLOPIDOGREL BISULFATE 75 MG TAB PO SCH (08:45)
[2017-08-14] MEDS: CYANOCOBALAMIN 500 MCG TAB (VIT B-12) PO SCH (08:45)
[2017-08-14] MEDS: CHOLECALCIFEROL 1000 INTER.UNIT TAB PO SCH ×2 (08:45→09:00)
--- NOTE | 2017-08-14 09:05 | Orthopedic Progress Note ---
Orthopedic Progress Note Date of Service Aug 14, 2017. Subjective Additional Notes: 76 Y/O female. POD #3 L TKA. She had a rough night. Pretty significant pain during the night, 910 she states. Pain was relieved with pain. Currently pain is controlled. No chest pain or sob. Some lightheadedness earlier. No other complaints. Objective calves soft nontender, N/V intact, dressing C/D/I, A&O x3, toes mobile Date Time Temp Pulse Resp B/P (MAP) Pulse Ox O2 Delivery O2 Flow Rate FiO2 08/14/17 08:02 Room Air 08/14/17 06:52 37.1 90 16 162/86 (111) 98 Room Air 08/13/17 23:55 Room Air 08/13/17 23:01 36.7 90 17 133/80 (97) 96 Room Air 08/13/17 15:21 Room Air 08/13/17 15:17 37.3 80 16 149/73 (98) 96 Room Air 08/13/17 09:52 37.1 65 16 97 Room Air Assessment & Plan Assessment: POD #3 L TKA Discharge Planning Discharge Planning: rehab hospital (DISCHARGE TO [facility]) Pain Management: other (Pretty painful overnight but controlled now. Continue current management. ) DVT Prophylaxis: TEDs, SCDs, ASA, other (plavix ) Therapy: Physical Therapy, Occupational Therapy
[2017-08-14] MEDS: CALCIUM 600MG + VIT D 400 IU TAB PO SCH (12:48)
[2017-08-14 15:30] VITALS: BP 129/72; PULSE 79; TEMP 36.8; O2SAT 97
[2017-08-14] MEDS: SENNA 8.6 MG TAB PO SCH (21:00)
[2017-08-14] MEDS: SIMVASTATIN 20 MG TAB PO SCH (21:25)
[2017-08-14 23:29] VITALS: BP 131/71; PULSE 74; TEMP 37.2; O2SAT 97
[2017-08-15] MEDS: TRAMADOL HCL 50 MG TAB PO PRN ×2 (03:49→09:02)
[2017-08-15] MEDS: ACETAMINOPHEN 500 MG TAB PO SCH ×2 (05:45→13:08)
[2017-08-15 07:12] VITALS: BP 163/81; PULSE 89; TEMP 37.1; O2SAT 96
[2017-08-15] MEDS: DOCUSATE SODIUM 100 MG CAP PO SCH (09:02)
[2017-08-15] MEDS: CLOPIDOGREL BISULFATE 75 MG TAB PO SCH (09:02)
[2017-08-15] MEDS: MULTIVITAMIN TAB PO SCH (09:02)
[2017-08-15] MEDS: FERROUS GLUCONATE 324 MG TAB PO SCH ×2 (09:02→13:08)
[2017-08-15] MEDS: CHOLECALCIFEROL 1000 INTER.UNIT TAB PO SCH (09:02)
[2017-08-15] MEDS: PANTOprazole SOD 40 MG TAB PO SCH (09:03)
[2017-08-15] MEDS: MEMANTINE 5 MG TAB PO SCH (09:03)
[2017-08-15] MEDS: CYANOCOBALAMIN 500 MCG TAB (VIT B-12) PO SCH (09:03)
[2017-08-15] MEDS: ASPIRIN 81 MG ECTAB PO SCH (09:03)
--- NOTE | 2017-08-15 10:27 | PROGRESS NOTE ---
DATE: 08/15/2017 CHIEF COMPLAINT: Status post left total knee arthroplasty, postop day #4. PROGRESS: Martha was seen and examined at bedside today. Overall, she is doing very well. She was sitting up at bedside, eating her breakfast. She has very little pain and she was ready to go to [facility]. PHYSICAL EXAMINATION: KNEE: The dressing is clean and dry. Her knee flex almost to 90 degrees. Her calf is soft and supple. She is neurologically intact. IMPRESSION: Status post left total knee arthroplasty, postop day #4. PLAN: At this point, she is doing very well. We are planning to discharge her to [facility] today. She will continue with 81 mg aspirin a day as well as Plavix for DVT prophylaxis. We will see her in the office in 2 weeks.
[2017-08-15] MEDS: CALCIUM 600MG + VIT D 400 IU TAB PO SCH (13:08)
--- NOTE | 2017-08-18 15:56 | DISCHARGE SUMMARY ---
ADMITTING PHYSICIAN AND SURGEON: Dr. Cagle. ADMITTING DIAGNOSIS: Left knee degenerative joint disease. SURGERY PERFORMED: Left total knee arthroplasty. SECONDARY DIAGNOSES: Hypertension, elevated cholesterol, TIA, gastroesophageal reflux disease, arthritis. CONSULTS: None obtained. HISTORY AND PHYSICAL EXAMINATION: Well documented in the patient's chart. HOSPITAL COURSE: The patient was admitted on 08/11/2017, underwent total knee arthroplasty, tolerated the procedure well. There were no complications. She was transferred to the PACU postoperatively and later to the orthopedic for further care. She was given Ancef for antibiotic prophylaxis, BIN stockings, SCDs, Plavix and 81 mg aspirin daily for DVT prophylaxis. Her hemoglobin, hematocrit and vital signs were monitored during hospital stay and remained stable. She developed some mild postoperative anemia, did not require any blood transfusions. She had some hypokalemia and was given a potassium supplement as well. There were no complications. By postoperative day 4, she was tolerating a regular diet, pain was controlled with oral pain medicine. She was participating in physical therapy. On postop day 4, she was transferred to rehab facility. She was given printed discharge instructions including new prescriptions for extra strength Tylenol, aspirin, iron supplement and tramadol. Continue her home medications. Continue physical therapy, weightbearing as tolerated, BIN stockings. Follow up in 10-12 days or sooner if there are any problems or concerns.
== END 2017-08-15 14:11 | DRG 470 ==
LOC: C.ACU 10:54 → C.3E 11:20 → ENRESERV 15:28
PROVIDERS: ADMIT Orthopaedic Surgery Sports Medicine; ATTEND Orthopaedic Surgery Sports Medicine
PROC: 0SRD0J9 Replacement of Left Knee Joint with Synthetic Substitute, Cemented, Open Approach (ICD-10-PCS; principal; 2017-08-11 13:00)
DX: M17.12 Unilateral primary osteoarthritis, left knee (principal); E87.6 Hypokalemia; D64.9 Anemia, unspecified; I10 Essential (primary) hypertension; K21.9 Gastro-esophageal reflux disease without esophagitis; Z90.710 Acquired absence of both cervix and uterus; Z91.013 Allergy to seafood; Z88.5 Allergy status to narcotic agent; Z88.0 Allergy status to penicillin; Z79.82 Long term (current) use of aspirin; Z86.73 Personal history of transient ischemic attack (TIA), and cerebral infarction without residual deficits; Z88.2 Allergy status to sulfonamides

== ENCOUNTER → 2017-09-01 | Outpatient (CLI) | payer OTHER, BC ==
[~2017-09-01] MED LIST changes: -ACET-1311 PO; +ACET-24 PO; -ACETAMINOPHEN 500 MG TAB PO SCH; +ASPI-320 PO; -BUPIVACAINE 0.5 % 5 MG/1 ML PF 10ML VIAL ONE; -BUPIVACAINE LIPOSOME 266 MG, BUPIVACAINE/EPINEPHRINE INJ 50 ML, SODIUM CHLORIDE 0.9% PF... INFIL SCH; -CEFAZOLIN 2000MG IV PUSH 15 ML IV SCH; -FAMOTIDINE 20 MG TAB PO SCH; -FENTANYL CITRATE INJ 50 MCG/1 ML 2 ML VIAL ONE; +FRRG PO; -GABAPENTIN 300 MG CAP PO SCH; -LACTATED RINGER'S 1000ML 1,000 ML IV SCH; -LACTATED RINGER'S 1000ML 500 ML IV SCH; -LACTATED RINGER'S 1000ML IV SCH; -METOCLOPRAMIDE HCL 10 MG TAB PO SCH; -MIDAZOLAM HCL 1 MG/ML 2ML VIAL ONE; -ROPIVACAINE 0.5% 5 MG/ML 30 ML VIAL ONE; +ULT50X PO
--- NOTE | 2017-09-01 17:01 | DIAGNOSTIC IMAGING REPORT ---
VENOUS DOPP LOWER EXT UNILAT HISTORY: 76 years-old Female LEFT LEG PAIN acute swelling of the left lower extremity COMPARISON: None available TECHNIQUE: Multiple real-time sonographic images of the left lower extremity deep venous structures were obtained assessing grayscale appearance, color and spectral flow FINDINGS: There is normal compressibility, phasicity, augmentation and flow within the left lower extremity deep venous structures. IMPRESSION: No sonographic evidence of deep venous thrombosis. The above report was generated using voice recognition software. It may contain grammatical, syntax or spelling errors. Electronically signed by: Olivier Morrison M.D. 09/01/2017 4:59 PM Dictated Date/Time: 09/01/2017 4:58 PM
[2017-09-01 17:23] LABS: BASO % 0.6 %; BASO ABS # 0.07 K/uL (0-0.2); EOS % 2.8 %; EOS ABS # 0.31 K/uL (0-0.5); HEMOGLOBIN 11.7 g/dL (12.0-16.0); IG# 0.04 K/uL (0.00-0.02); LYMPH ABS # 1.65 K/uL (1.2-3.4); MEAN CELL VOLUME 87.7 fL (80-100); MEAN CORPUSCULAR HEMOGLOBIN 29.3 pg (25-34); MEAN CORPUSCULAR HGB CONC 33.4 g/dl (32-36); MEAN PLATELET VOLUME 8.3 fL (7.4-10.4); MONO ABS # 1.32 K/uL (0.11-0.59); NEUT % 69.2 %; NEUT ABS # 7.59 K/uL (1.4-6.5); PLATELET COUNT 529 K/uL (130-400); RED CELL DISTRIBUTION WIDTH CV 14.1 % (11.5-14.5); RED CELL DISTRIBUTION WIDTH SD 45.3 fL (36.4-46.3); WHITE BLOOD COUNT 10.98 K/uL (4.8-10.8)
[2017-09-01 17:49] LABS: BLOOD UREA NITROGEN 17 mg/dl (7-18); CALCIUM 9.3 mg/dl (8.5-10.1); CARBON DIOXIDE 28 mmol/L (21-32); GLUCOSE 90 mg/dl (70-99); POTASSIUM 3.1 mmol/L (3.5-5.1); SODIUM 135 mmol/L (136-145)
== END | disposition home or self-care (01) ==
LOC: C.ULTR 16:23
PROVIDERS: ATTEND Physician Assistant Medical
DX: M79.605 Pain in left leg (principal)

== ENCOUNTER 2023-07-29 15:53 | Observation (INO) ==
[2023-07-29 16:27] LABS: Basophils # (auto) 0.13 K/uL (0.00-0.20); Basophils % (auto) 1.1 %; Eosinophils # (auto) 0.66 K/uL (0.00-0.50); Eosinophils % (auto) 5.7 %; Hematocrit (blood only) 39.8 % (37.0-47.0); Hemoglobin 13.3 g/dl (12.0-16.0); Immature Granulocytes # (auto) 0.06 K/uL (0.01-0.20); Immature Granulocytes % (auto) 0.5 %; Lymphocytes # (auto) 1.72 K/uL (1.20-3.40); Lymphocytes % (auto) 14.9 %; Mean Corpuscular Hemoglobin 30.2 pg (25.0-34.0); Mean Corpuscular Hgb Conc 33.4 g/dL (32.0-36.0); Mean Corpuscular Volume 90.5 fL (80.0-100.0); Mean Platelet Volume 9.6 fL (9.4-12.4); Monocytes # (auto) 1.19 K/uL (0.11-0.59); Monocytes % (auto) 10.3 %; Neutrophils % (auto) 67.5 %; Platelet Count 327 K/uL (130-400); RDW Coefficient of Variation 13.2 % (11.5-14.5); RDW Standard Deviation 44.5 fL (36.4-46.3); White Blood Count 11.56 K/ul (4.8-10.8)
[2023-07-29 16:35] LABS: iSTAT Creatinine 0.8 mg/dl (0.6-1.3); iSTAT Hemoglobin 13.3 g/dl (12.0-16.0); iSTAT Ionized Calcium 1.22 mmol/l (1.12-1.32); iSTAT Potassium 3.8 mmol/L (3.3-5.0)
[2023-07-29] MEDS: OPTIRAY 320 125ml IV ONE (16:39)
[2023-07-29 16:41] LABS: Partial Thromboplastin Time 27 Seconds (21-31); Prothrombin Time 10.6 Seconds (9.0-12.0)
--- NOTE | 2023-07-29 16:43 | Emergency Department Note ---
History of Present Illness General Chief complaint: TIA Symptoms Stated complaint: LOSS OF MEM, FELL/LOSS BALANCE, BLURRED VISION Time Seen by Provider: 07/29/23 16:04 History of Present Illness Provider complaint: Strokelike symptoms 82-year-old female presents emergency department for strokelike symptoms. Patient states for the last week she has been having increasing confusion and difficulty speaking. She reports 2 nights ago she fell and landed on her left knee. Patient states she has history of a stroke. Not on any blood thinners. Home Medications Medication Instructions Recorded Confirmed Type cholecalciferol (vitamin D3) 25 1,000 unit PO QAM 02/10/18 07/29/23 History mcg (1,000 unit) tablet cyanocobalamin (vitamin B-12) 500 500 mcg PO QAM 02/10/18 07/29/23 History mcg tablet bromelains 500 mg tablet 500 mg PO DAILY 12/14/18 07/29/23 History aspirin 325 mg tablet 325 mg PO DAILY 08/13/20 07/29/23 History docusate sodium 100 mg capsule 100 mg PO DAILY PRN Constipation 08/13/20 07/29/23 History (Colace) ascorbic acid (vitamin C) 500 mg 1,000 mg PO DAILY sickness 09/18/20 07/29/23 History tablet (Vitamin C) metaxalone 800 mg tablet 400 mg (1/2 x 800 mg) PO BID PRN 08/20/22 07/29/23 Rx muscle pain #10 tabs simvastatin 20 mg tablet See Rx Instructions .Route 10/07/22 07/29/23 Rx .COMPLEX #90 tabs levothyroxine 100 mcg tablet 100 mcg PO QAM #90 tabs 02/11/23 07/29/23 Rx losartan 100 mg tablet 100 mg PO QAM #90 tabs 05/07/23 07/29/23 Rx pantoprazole 20 mg tablet,delayed 20 mg PO QAM #90 tabs 05/07/23 07/29/23 Rx release estradiol 0.01% (0.1 mg/gram) 1 g vaginal .COMPLEX #42.5 grams 07/08/23 07/29/23 Rx vaginal cream (Estrace) Allergies Allergy/AdvReac Type Severity Reaction Status Date / Time shellfish derived Allergy Mild N/V SEVERE Verified 07/07/23 11:28 Penicillins Allergy Unknown ? REACTION Verified 07/07/23 11:28 Sulfa (Sulfonamide Allergy Unknown ? REACTION Verified 07/07/23 11:28 Antibiotics) donepezil AdvReac Intermediate DIARRHEA Verified 07/07/23 11:28 codeine AdvReac Mild N/V Verified 07/07/23 11:28 Past Med/Surg History Medical History History of CVA (cerebrovascular accident) (~2017) Left knee pain PVD (peripheral vascular disease) Osteoarthritis Urinary incontinence GERD (gastroesophageal reflux disease) Hypothyroidism Migraine Cardiac murmur very faint, since childhood Hyperlipidemia Asthma no inhalers now; takes Bromelain HTN (hypertension) Surgical History History of left knee replacement History of open reduction and internal fixation (ORIF) 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) History of cataract surgery b/l History of dilatation and curettage x3 History of total left knee replacement (TKR) History of colonoscopy History of bladder surgery bladder tack x2 History of hysterectomy with bilateral oophorectomy History of tooth extraction all teeth History of appendectomy History of tonsillectomy and adenoidectomy History of endoscopic sinus surgery removal of nasal polyps S/P appendectomy Family History Son Family history of diabetes mellitus Mother Hypertension Myocardial infarction Father Hypertension Denies family history of Ovarian cancer Prostate cancer Breast cancer Lung cancer Colorectal cancer Social History Smoking Status: Never smoker Second Hand Exposure: No; Do You Dip or Chew Tobacco: No; Hx Alcohol Use: Yes Alcohol type: wine Alcohol Intake Frequency: Monthly or Less Hx Substance Use: No Preferred Language: Hong Konger Communication Ability: Effective Visual Impairment: Limited 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: Normal Sand Shoveler Required: No Beliefs That Will Affect Care: None marital status: Current Living Situation: Spouse Current Living Situation Comment: Lives with Clay Dove current occupational status: retired How many Children do You have: 2 Feels Safe at Home: Yes Childhood Exposure to Second-Hand Smoke: No caffeine: Yes (coffee 1 cup daily ) Dental Care, Regularly: No Physical Activity Frequency: 3-4 Times per Week Seatbelt Use: always Sunscreen Use: Yes Assistive Devices: Cane, Denture - Upper, Denture - Lower and Glasses Physical Exam Vital Signs Vital Signs - 24 hr 07/29/23 15:55 07/29/23 16:23 Temperature 36.8 C Temperature Source Temporal Artery Scan Pulse Rate 125 H 86 Respiratory Rate 22 Respiratory Effort / Characteristics Non-Labored Spontaneous Respiratory Depth Normal Respiratory Pattern Regular Blood Pressure 173/93 H Blood Pressure Mean 119 Blood Pressure Position Sitting Pulse Oximetry 94 Oxygen Delivery Method Room Air Sepsis Recent Fever Within 48 Hours No Sepsis New/Unexplained Change in Mental Status No Sepsis Action Taken by Nursing No Action Required Physical Exam HENT: Exam performed. -Head: Normocephalic and atraumatic. -Right Ear: External ear normal. No mastoid erythema -Left Ear: External ear normal. No mastoid erythema EYES: Conjunctivae and EOM are normal. Pupils are equal, round, and reactive to light. Right eye exhibits no discharge. Left eye exhibits no discharge. No scleral icterus. NECK: Normal range of motion. Neck supple. No JVD present. CV: Normal rate, regular rhythm, normal heart sounds and intact distal pulses. There is no peripheral edema. Palpable radial pulses bue. PULM/CHEST: Effort normal and breath sounds normal. No respiratory distress. No stridor. She has no wheezes. She has no rales. ABD: The abdomen is soft. There is no tenderness. There is no rebound, no guarding. MUSC/SKEL: Normal range of motion. There is no peripheral edema, tenderness or deformity. LYMPH: No cervical adenopathy. NEURO: She is alert and oriented to person, place, and time. She has normal strength. No cranial nerve deficit or sensory deficit. Mild expressive aphasia and dysarthria. GCS eye subscore is 4. GCS verbal subscore is 5. GCS motor subscore is 6. Cerebellar tests wnl. Course Course 1604: The patient was evaluated in room B4. A complete history and physical exam was performed Cardiac monitoring: An order was placed for continuous cardiac monitoring. The monitor shows a rate of 80 with sinus rhythm interpreted by me 1755: Vital signs stable. Blood work within normal limits. Imaging within normal limits no large vessel occlusion ICH or infarct on CT imaging. Urinalysis is concerning for UTI. Patient is still having mild expressive aphasia and dysarthria. I thought the patient could have had a small stroke. Patient will be admitted to have stroke workup completed and be evaluated by neurology. Cipro ordered for the patient for her UTI. Patient will be admitted to [facility]. Administered Medications Ciprofloxacin (Cipro / D5w) 400 mg in 200 mls @ 100 mls/hr IV NOW STA; Protocol Stop: 07/29/23 19:51 Last Admin: 07/29/23 18:20 Dose: 100 mls/hr Documented By: NRB Discontinued Medications Diphenhydramine HCl (Diphenhydramine 50 Mg/Ml Vial) 12.5 mg IV NOW STA Stop: 07/29/23 16:20 Last Admin: 07/29/23 16:46 Dose: 12.5 mg Documented By: PATRICE Ioversol (Optiray 320 125ml) 109 ml IV ONCE ONE Stop: 07/29/23 16:39 Last Admin: 07/29/23 16:39 Dose: 109 ml Documented By: LAZ Ondansetron HCl (Ondansetron Inj 2 Mg/Ml 2 Ml Vial) 4 mg IV NOW STA Stop: 07/29/23 16:20 Last Admin: 07/29/23 16:45 Dose: 4 mg Documented By: PATRICE Medical Decision Making Laboratory Data Attestation: I reviewed the patient's lab results. 07/29/23 16:16 07/29/23 16:16 Lab Results 07/29/23 07/29/23 07/29/23 Range/Units 16:16 16:20 16:51 WBC 11.56 H (4.8-10.8) K/ul RBC 4.40 (4.20-5.40) M/uL Hgb 13.3 (12.0-16.0) g/dl POC Hgb 13.3 (12.0-16.0) g/dl Hct 39.8 (37.0-47.0) % POC Hct 39 (37-47) % MCV 90.5 (80.0-100.0) fL MCH 30.2 (25.0-34.0) pg MCHC 33.4 (32.0-36.0) g/dL RDW Std Deviation 44.5 (36.4-46.3) fL RDW Coeff of Rosaura 13.2 (11.5-14.5) % Plt Count 327 (130-400) K/uL MPV 9.6 (9.4-12.4) fL Immature Gran % (Auto) 0.5 % Neut % (Auto) 67.5 % Lymph % (Auto) 14.9 % [place] % (Auto) 10.3 % Eos % (Auto) 5.7 % Baso % (Auto) 1.1 % Neut # (Auto) 7.80 H (1.40-6.50) K/uL Lymph # (Auto) 1.72 (1.20-3.40) K/uL [place] # (Auto) 1.19 H (0.11-0.59) K/uL Eos # (Auto) 0.66 H (0.00-0.50) K/uL Baso # (Auto) 0.13 (0.00-0.20) K/uL Immature Gran # (Auto) 0.06 (0.01-0.20) K/uL PT 10.6 (9.0-12.0) Seconds INR 1.0 (0.9-1.1) APTT 27 (21-31) Seconds PTT Ratio 1.0 VBG pH 7.40 (7.36-7.41) VBG pCO2 45 (38-50) mmHg VBG pO2 31 mmHg VBG HCO3 28 mmol/L VBG O2 Saturation < 60.0 % VBG Base Excess 2.5 mEq/L POC Sodium 138 (135-144) mmol/L Sodium 135 L (136-145) mmol/L POC Potassium 3.8 (3.3-5.0) mmol/L Potassium 3.7 (3.5-5.1) mmol/L POC Chloride 103 (101-112) mmol/L Chloride 102 (98-107) mmol/L Carbon Dioxide 27 (21-32) mmol/L POC Total CO2 27 (24-31) mmol/L Anion Gap 6 (3-11) POC Anion Gap 13.0 L (16-25) mmol/L POC BUN 20 H (7-18) mg/dl BUN 21 (6-23) mg/dl Creatinine 0.75 (0.6-1.2) mg/dl POC Creatinine 0.8 (0.6-1.3) mg/dl Est Cr Clr Drug Dosing Not Reportable Est GFR ( Amer) 84.8 ml/min Est GFR (Non-Af Amer) 73.2 ml/min BUN/Creatinine Ratio 28.0 H (10-20) Glucose 92 (70-99(Fasting)) mg/dl POC Glucose (other) 93 (70-99) mg/dl Calcium 9.5 (8.6-10.3) mg/dl POC Ioniz Calcium Justin 1.22 (1.12-1.32) mmol/l Magnesium 2.2 (1.7-2.4) mg/dl Total Bilirubin 0.5 (0.2-1.0) mg/dl AST 15 (13-39) U/L ALT 12 (7-52) U/L Alkaline Phosphatase 75 (34-104) U/L Ammonia 22.0 (18-72) umol/L Troponin I High Sens 3.7 (0-14) pg/ml Total Protein 7.3 (6.0-8.3) gm/dl Albumin 4.3 (3.4-5.0) gm/dl Globulin 3.0 (2.5-4.0) gm/dl Albumin/Globulin Ratio 1.4 (0.9-2) Urine Color Urine Appearance (Clear) Urine pH (4.5-7.5) Ur Specific [place] (1.000-1.030) Urine Protein (Negative) Urine Glucose (UA) (Negative) Urine Ketones (Negative) Urine Blood (Negative) Urine Nitrite (Negative) Urine Bilirubin (Negative) Urine Urobilinogen (Negative) Ur Leukocyte Esterase (Negative) Urine WBC (Auto) (0-5) /hpf Urine RBC (Auto) (0-4) /hpf U Hyaline Cast (Auto) (0-5) /lpf U Epithel Cells (Auto) (0-5) /lpf Urine Bacteria (Auto) (Negative) Blood Type A Positive Antibody Screen NEGATIVE 07/29/23 Range/Units 17:04 WBC (4.8-10.8) K/ul RBC (4.20-5.40) M/uL Hgb (12.0-16.0) g/dl POC Hgb (12.0-16.0) g/dl Hct (37.0-47.0) % POC Hct (37-47) % MCV (80.0-100.0) fL MCH (25.0-34.0) pg MCHC (32.0-36.0) g/dL RDW Std Deviation (36.4-46.3) fL RDW Coeff of Rosaura (11.5-14.5) % Plt Count (130-400) K/uL MPV (9.4-12.4) fL Immature Gran % (Auto) % Neut % (Auto) % Lymph % (Auto) % [place] % (Auto) % Eos % (Auto) % Baso % (Auto) % Neut # (Auto) (1.40-6.50) K/uL Lymph # (Auto) (1.20-3.40) K/uL [place] # (Auto) (0.11-0.59) K/uL Eos # (Auto) (0.00-0.50) K/uL Baso # (Auto) (0.00-0.20) K/uL Immature Gran # (Auto) (0.01-0.20) K/uL PT (9.0-12.0) Seconds INR (0.9-1.1) APTT (21-31) Seconds PTT Ratio VBG pH (7.36-7.41) VBG pCO2 (38-50) mmHg VBG pO2 mmHg VBG HCO3 mmol/L VBG O2 Saturation % VBG Base Excess mEq/L POC Sodium (135-144) mmol/L Sodium (136-145) mmol/L POC Potassium (3.3-5.0) mmol/L Potassium (3.5-5.1) mmol/L POC Chloride (101-112) mmol/L Chloride (98-107) mmol/L Carbon Dioxide (21-32) mmol/L POC Total CO2 (24-31) mmol/L Anion Gap (3-11) POC Anion Gap (16-25) mmol/L POC BUN (7-18) mg/dl BUN (6-23) mg/dl Creatinine (0.6-1.2) mg/dl POC Creatinine (0.6-1.3) mg/dl Est Cr Clr Drug Dosing Est GFR ( Amer) ml/min Est GFR (Non-Af Amer) ml/min BUN/Creatinine Ratio (10-20) Glucose (70-99(Fasting)) mg/dl POC Glucose (other) (70-99) mg/dl Calcium (8.6-10.3) mg/dl POC Ioniz Calcium Justin (1.12-1.32) mmol/l Magnesium (1.7-2.4) mg/dl Total Bilirubin (0.2-1.0) mg/dl AST (13-39) U/L ALT (7-52) U/L Alkaline Phosphatase (34-104) U/L Ammonia (18-72) umol/L Troponin I High Sens (0-14) pg/ml Total Protein (6.0-8.3) gm/dl Albumin (3.4-5.0) gm/dl Globulin (2.5-4.0) gm/dl Albumin/Globulin Ratio (0.9-2) Urine Color Yellow Urine Appearance Clear (Clear) Urine pH 5.5 (4.5-7.5) Ur Specific [place] 1.008 (1.000-1.030) Urine Protein Negative (Negative) Urine Glucose (UA) Negative (Negative) Urine Ketones Negative (Negative) Urine Blood Negative (Negative) Urine Nitrite Positive A (Negative) Urine Bilirubin Negative (Negative) Urine Urobilinogen Negative (Negative) Ur Leukocyte Esterase Negative (Negative) Urine WBC (Auto) 0 (0-5) /hpf Urine RBC (Auto) 0-4 (0-4) /hpf U Hyaline Cast (Auto) 0 (0-5) /lpf U Epithel Cells (Auto) 0-5 (0-5) /lpf Urine Bacteria (Auto) 2+ H (Negative) Blood Type Antibody Screen Imaging Data Attestation: I personally reviewed and interpreted this imaging study as follows: My Impression: Knee x-ray: No acute fracture or dislocation Radiologist's Impression: Chest X-Ray 07/29/23 16:13 XR chest 1V portable CLINICAL HISTORY: neuro deficit, acute stroke suspected COMPARISON STUDY: Chest radiograph April 25, 2018. FINDINGS: Lung volumes are normal. Lungs are clear. There is no pneumothorax or pleural effusion. Skin folds project over the chest. Mild cardiomegaly is unchanged. Mediastinal contours are normal. There is no evidence for pulmonary edema. IMPRESSION: No acute cardiopulmonary findings. ACT 112: Negative or not required by law. Electronically signed by: Krish Salvador M.D. 07/29/2023 4:[address] 07/29/23 16:13 CT angio neck with con, CT head/brain wo con, CT angio head w con CLINICAL HISTORY: neuro deficit, acute stroke suspected TECHNIQUE: Contiguous axial CT images of the head were acquired from the base of the skull to the vertex without intravenous contrast administration. CT angiography of the head and neck was performed following intravenous administration of iodinated contrast. Coronal and sagittal MIPS were obtained from the axial data set and were submitted for review. Automated dose lowering techniques and/or adjustment according to patient size were utilized for this examination. All measurements were calculated based on NASCET criteria. CT DOSE: 1093.38 mGy.cm Comparison: Comparison is made to MRI brain 09/20/2020 FINDINGS: CT head: Areas of decreased attenuation are present in the periventricular and subcortical white matter bilaterally consistent with small vessel ischemic disease. Generalized cerebral atrophy with commensurate enlargement of the ventricles, sulci, and cisterns is also present. There is no acute intracranial hemorrhage or evidence of acute territorial infarction. No shift of the midline structures, mass effect, or extra-axial abnormalities are shown. Atherosclerotic calcifications are present in the intracranial segments of the internal carotid arteries. Focal encephalomalacia in the left thalamus unchanged from prior exam. Lungs and soft tissues are unremarkable. CTA Neck: The left common carotid artery shares common origin with the innominate artery. There is no significant atherosclerotic plaque in the aortic arch or the origins of the innominate, left common carotid, and left subclavian arteries. The common carotid, external carotid, cervical segments of the internal carotid arteries, and the cervical segments of the vertebral arteries are patent without hemodynamically significant stenosis. The right vertebral artery is dominant. CTA Head: The anterior and posterior cerebral circulations are patent. No hemodynamically significant stenosis, aneurysm, dissection, or arteriovenous malformation is shown. IMPRESSION: 1. No acute intracranial hemorrhage, evidence of acute territorial infarction, or other acute intracranial disease process. 2. No occlusion, hemodynamically significant stenosis, or dissection in the major cervical arteries. 3. No occlusion, hemodynamically significant stenosis, aneurysm, dissection, or arteriovenous malformation in the major intracranial arteries. Assessment of stenosis of the internal carotid arteries is based on NASCET criteria. ACT 112: Negative or not required by law. Electronically signed by: Robin Bernardo M.D. 07/29/2023 4:53 PM Head CTA 07/29/23 16:13 CT angio neck with con, CT head/brain wo con, CT angio head w con CLINICAL HISTORY: neuro deficit, acute stroke suspected TECHNIQUE: Contiguous axial CT images of the head were acquired from the base of the skull to the vertex without intravenous contrast administration. CT angiography of the head and neck was performed following intravenous administration of iodinated contrast. Coronal and sagittal MIPS were obtained from the axial data set and were submitted for review. Automated dose lowering techniques and/or adjustment according to patient size were utilized for this examination. All measurements were calculated based on NASCET criteria. CT DOSE: 1093.38 mGy.cm Comparison: Comparison is made to MRI brain 09/20/2020 FINDINGS: CT head: Areas of decreased attenuation are present in the periventricular and subcortical white matter bilaterally consistent with small vessel ischemic disease. Generalized cerebral atrophy with commensurate enlargement of the ventricles, sulci, and cisterns is also present. There is no acute intracranial hemorrhage or evidence of acute territorial infarction. No shift of the midline structures, mass effect, or extra-axial abnormalities are shown. Atherosclerotic calcifications are present in the intracranial segments of the internal carotid arteries. Focal encephalomalacia in the left thalamus unchanged from prior exam. Lungs and soft tissues are unremarkable. CTA Neck: The left common carotid artery shares common origin with the innominate artery. There is no significant atherosclerotic plaque in the aortic arch or the origins of the innominate, left common carotid, and left subclavian arteries. The common carotid, external carotid, cervical segments of the internal carotid arteries, and the cervical segments of the vertebral arteries are patent without hemodynamically significant stenosis. The right vertebral artery is dominant. CTA Head: The anterior and posterior cerebral circulations are patent. No hemodynamically significant stenosis, aneurysm, dissection, or arteriovenous malformation is shown. IMPRESSION: 1. No acute intracranial hemorrhage, evidence of acute territorial infarction, or other acute intracranial disease process. 2. No occlusion, hemodynamically significant stenosis, or dissection in the major cervical arteries. 3. No occlusion, hemodynamically significant stenosis, aneurysm, dissection, or arteriovenous malformation in the major intracranial arteries. Assessment of stenosis of the internal carotid arteries is based on NASCET criteria. ACT 112: Negative or not required by law. Electronically signed by: Robin Bernardo M.D. 07/29/2023 4:53 PM Neck CTA 07/29/23 16:13 CT angio neck with con, CT head/brain wo con, CT angio head w con CLINICAL HISTORY: neuro deficit, acute stroke suspected TECHNIQUE: Contiguous axial CT images of the head were acquired from the base of the skull to the vertex without intravenous contrast administration. CT angiography of the head and neck was performed following intravenous administration of iodinated contrast. Coronal and sagittal MIPS were obtained from the axial data set and were submitted for review. Automated dose lowering techniques and/or adjustment according to patient size were utilized for this examination. All measurements were calculated based on NASCET criteria. CT DOSE: 1093.38 mGy.cm Comparison: Comparison is made to MRI brain 09/20/2020 FINDINGS: CT head: Areas of decreased attenuation are present in the periventricular and subcortical white matter bilaterally consistent with small vessel ischemic disease. Generalized cerebral atrophy with commensurate enlargement of the ventricles, sulci, and cisterns is also present. There is no acute intracranial hemorrhage or evidence of acute territorial infarction. No shift of the midline structures, mass effect, or extra-axial abnormalities are shown. Atherosclerotic calcifications are present in the intracranial segments of the internal carotid arteries. Focal encephalomalacia in the left thalamus unchanged from prior exam. Lungs and soft tissues are unremarkable. CTA Neck: The left common carotid artery shares common origin with the innominate artery. There is no significant atherosclerotic plaque in the aortic arch or the origins of the innominate, left common carotid, and left subclavian arteries. The common carotid, external carotid, cervical segments of the internal carotid arteries, and the cervical segments of the vertebral arteries are patent without hemodynamically significant stenosis. The right vertebral artery is dominant. CTA Head: The anterior and posterior cerebral circulations are patent. No hemodynamically significant stenosis, aneurysm, dissection, or arteriovenous malformation is shown. IMPRESSION: 1. No acute intracranial hemorrhage, evidence of acute territorial infarction, or other acute intracranial disease process. 2. No occlusion, hemodynamically significant stenosis, or dissection in the major cervical arteries. 3. No occlusion, hemodynamically significant stenosis, aneurysm, dissection, or arteriovenous malformation in the major intracranial arteries. Assessment of stenosis of the internal carotid arteries is based on NASCET criteria. ACT 112: Negative or not required by law. Electronically signed by: Robin Bernardo M.D. 07/29/2023 4:53 PM Knee X-Ray 07/29/23 16:44 XR knee LT 4V CLINICAL HISTORY: fall TECHNIQUE: 4 views of the left knee were obtained. Comparison: Comparison is made to knee radiographs 08/11/2017 FINDINGS: There is no evidence of an acute fracture. Patient is status post total knee arthroplasty. No perihardware lucency or hardware fracture is seen. No joint effusion is seen. No soft tissue abnormality is seen. IMPRESSION: No evidence of acute osseous injury. ACT 112: Negative or not required by law. Electronically signed by: Robin Bernardo M.D. 07/29/2023 5:30 PM ECG Data Attestation: I personally reviewed and interpreted this ECG as follows: Rate (beats per minute): 83 Rhythm: + normal sinus ECG Intervals/blocks: + Normal AR and + Normal QT-c ECG ST segments: + Normal ST segments Additional Comments: QRS 78 MDM Narrative 1604: The patient was evaluated in room B4. A complete history and physical exam was performed Cardiac monitoring: An order was placed for continuous cardiac monitoring. The monitor shows a rate of 80 with sinus rhythm interpreted by me 1755: Vital signs stable. Blood work within normal limits. Imaging within normal limits no large vessel occlusion ICH or infarct on CT imaging. Urinalysis is concerning for UTI. Patient is still having mild expressive aphasia and dysarthria. I thought the patient could have had a small stroke. Patient will be admitted to have stroke workup completed and be evaluated by neurology. Tomro ordered for the patient for her UTI. Patient will be admitted to [facility] hospitalist. Impression & Plan Acute UTI, Stroke-like symptoms Discharge Plan Visit Data Chief Complaint: TIA Symptoms Stated Complaint: LOSS OF MEM, FELL/LOSS BALANCE, BLURRED VISION ED Provider: Domenic Palacios Discharge Problem: Acute UTI, Stroke-like symptoms Patient Disposition: Being Evaluated by Hospitalist Forms Stand Alone Forms: My [facility] Prescriptions Prescriptions: No Action simvastatin 20 mg tablet See Rx Instructions .ROUTE .COMPLEX Qty: 90 3RF Dose Instruction: TAKE 1 TABLET BY MOUTH EVERY DAY AT BEDTIME Rx Instructions: TAKE 1 TABLET BY MOUTH EVERY DAY AT BEDTIME levothyroxine 100 mcg tablet 100 mcg PO QAM Qty: 90 3RF estradiol [Estrace] 0.01 % (0.1 mg/gram) cream 1 g vaginal .COMPLEX Qty: 42.5 3RF Rx Instructions: 1 g vaginally; apply every other day at bedtime for 3 months than once or twice weekly thereafter. aspirin 325 mg tablet 325 mg PO DAILY docusate sodium [Colace] 100 mg capsule 100 mg PO DAILY PRN (Reason: Constipation) metaxalone 800 mg tablet 400 mg PO BID PRN (Reason: muscle pain) Qty: 10 1RF pantoprazole 20 mg tablet,delayed release (DR/EC) 20 mg PO QAM Qty: 90 3RF losartan 100 mg tablet 100 mg PO QAM Qty: 90 3RF cyanocobalamin (vitamin B-12) 500 mcg Tablet 500 mcg PO QAM cholecalciferol (vitamin D3) 1,000 unit Tablet 1,000 unit PO QAM bromelains 500 mg tablet 500 mg PO DAILY ascorbic acid (vitamin C) [Vitamin C] 500 mg tablet 1,000 mg PO DAILY Referrals Referrals: PCP,NO [Physician] -
[2023-07-29 16:45] LABS: Albumin Level 4.3 gm/dl (3.4-5.0); Anion Gap 6 (3-11); Bilirubin,Total 0.5 mg/dl (0.2-1.0); Calcium 9.5 mg/dl (8.6-10.3); Carbon Dioxide 27 mmol/L (21-32); Chloride 102 mmol/L (98-107); Magnesium 2.2 mg/dl (1.7-2.4); Potassium 3.7 mmol/L (3.5-5.1); Sodium 135 mmol/L (136-145)
[2023-07-29] MEDS: ONDANSETRON INJ 2 MG/ML 2 ML VIAL IV STA (16:45)
[2023-07-29] MEDS: diphenhydrAMINE 50 MG/ML VIAL IV STA (16:46)
[2023-07-29 16:51] LABS: Alanine Aminotransferase 12 U/L (7-52); Albumin Globulin Ratio 1.4 (0.9-2); Alkaline Phosphatase 75 U/L (34-104); Aspartate Aminotransferase 15 U/L (13-39); Blood Urea Nitrogen 21 mg/dl (6-23); Est GFR (African American) 84.8 ml/min; Est GFR (Non-African American) 73.2 ml/min; Glucose 92 mg/dl (70-99(Fasting)); Total Protein 7.3 gm/dl (6.0-8.3)
--- NOTE | 2023-07-29 16:51 | XRay Report ---
XR chest 1V portable CLINICAL HISTORY: neuro deficit, acute stroke suspected COMPARISON STUDY: Chest radiograph April 25, 2018. FINDINGS: Lung volumes are normal. Lungs are clear. There is no pneumothorax or pleural effusion. Ski n folds project over the chest. Mild cardiomegaly is unchanged. Mediastinal contours are normal. Ther e is no evidence for pulmonary edema. IMPRESSION: No acute cardiopulmonary findings. ACT 112: Negative or not required by law. Electronically signed by: Krish Salvador M.D. 07/29/2023 4:50 PM
--- NOTE | 2023-07-29 16:54 | CT Scan Report ---
CT angio neck with con, CT head/brain wo con, CT angio head w con CLINICAL HISTORY: neuro deficit, acute stroke suspected TECHNIQUE: Contiguous axial CT images of the head were acquired from the base of the skull to the russell meir without intravenous contrast administration. CT angiography of the head and neck was performed f ollowing intravenous administration of iodinated contrast. Coronal and sagittal MIPS were obtained fr om the axial data set and were submitted for review. Automated dose lowering techniques and/or adjus tment according to patient size were utilized for this examination. All measurements were calculated based on NASCET criteria. CT DOSE: 1093.38 mGy.cm Comparison: Comparison is made to MRI brain 09/20/2020 FINDINGS: CT head: Areas of decreased attenuation are present in the periventricular and subcortical white torsten er bilaterally consistent with small vessel ischemic disease. Generalized cerebral atrophy with comme nsurate enlargement of the ventricles, sulci, and cisterns is also present. There is no acute intracr anial hemorrhage or evidence of acute territorial infarction. No shift of the midline structures, mas s effect, or extra-axial abnormalities are shown. Atherosclerotic calcifications are present in the intracranial segments of the internal carotid arteries. Focal encephalomalacia in the left thalamus u nchanged from prior exam. Lungs and soft tissues are unremarkable. CTA Neck: The left common carotid artery shares common origin with the innominate artery. There is n o significant atherosclerotic plaque in the aortic arch or the origins of the innominate, left common carotid, and left subclavian arteries. The common carotid, external carotid, cervical segments of t he internal carotid arteries, and the cervical segments of the vertebral arteries are patent without hemodynamically significant stenosis. The right vertebral artery is dominant. CTA Head: The anterior and posterior cerebral circulations are patent. No hemodynamically significan t stenosis, aneurysm, dissection, or arteriovenous malformation is shown. IMPRESSION: 1. No acute intracranial hemorrhage, evidence of acute territorial infarction, or other acute intrac ranial disease process. 2. No occlusion, hemodynamically significant stenosis, or dissection in the major cervical arteries. 3. No occlusion, hemodynamically significant stenosis, aneurysm, dissection, or arteriovenous malfor mation in the major intracranial arteries. Assessment of stenosis of the internal carotid arteries is based on NASCET criteria. ACT 112: Negative or not required by law. Electronically signed by: Robin Bernardo M.D. 07/29/2023 4:53 PM
[2023-07-29 16:56] LABS: Troponin I High Sensitivity 3.7 pg/ml (0-14)
[2023-07-29 16:59] LABS: Base Excess VBG 2.5 mEq/L; HCO3 VBG 28 mmol/L; Oxygen Saturation VBG < 60.0 %; PCO2 VBG 45 mmHg (38-50); PO2 VBG 31 mmHg
[2023-07-29 17:15] LABS: Appearance Urine Clear (Clear); Bacteria Urine Automated 2+ (Negative); Bilirubin Urine Negative (Negative); Blood Urine Negative (Negative); Cast Urine Automated 0 /lpf (0-5); Color Urine Yellow; Epithelial Cell Urine Auto 0-5 /lpf (0-5); Glucose Urine UA Negative (Negative); Ketones Urine Negative (Negative); Leukocyte Esterase Urine Negative (Negative); Nitrite Urine Positive (Negative); Protein Urine Negative (Negative); RBC Urine Automated 0-4 /hpf (0-4); Specific Gravity Urine 1.008 (1.000-1.030); Urobilinogen Urine Negative (Negative); WBC Urine Automated 0 /hpf (0-5); pH Urine 5.5 (4.5-7.5)
--- NOTE | 2023-07-29 17:31 | XRay Report ---
XR knee LT 4V CLINICAL HISTORY: fall TECHNIQUE: 4 views of the left knee were obtained. Comparison: Comparison is made to knee radiographs 08/11/2017 FINDINGS: There is no evidence of an acute fracture. Patient is status post total knee arthroplasty. No perihar dware lucency or hardware fracture is seen. No joint effusion is seen. No soft tissue abnormality is seen. IMPRESSION: No evidence of acute osseous injury. ACT 112: Negative or not required by law. Electronically signed by: Robin Bernardo M.D. 07/29/2023 5:30 PM
[2023-07-29] MEDS: CIPROFLOXACIN / D5W 400 MG/200 ML BAG IV STA (18:20)
[2023-07-29] MEDS ORDERED: Patient's HEIGHT &/or WEIGHT Needed STA (19:36)
--- NOTE | 2023-07-29 19:53 | History & Physical Report ---
Date of Service July 29, 2023 Assessment & Plan (1) Stroke-like symptoms: Plan: Patient 82-year-old female with a past medical history of previous CVA, hypertension, hyperlipidemia, hypothyroidism, GERD, peripheral vascular disease, osteopenia, and urinary incontinence who presents to the hospital for concern of loss of words and possible strokelike symptoms. Patient without acute abnormality seen on CT imaging. Patient to be admitted for further workup and treatment for possible urinary tract infection. -Admit to [facility], no indication for telemetry at this time -Differential includes TIA as patient seems to be back at baseline versus acute metabolic encephalopathy secondary to infection -MRI without contrast ordered for evaluation of acute/subacute CVA -Patient concerned about getting MRI as she does have metal in both her right ankle and knee, however, patient has had MRI of brain since these has been placed. Should be of no concern. -N.p.o. until bedside dysphagia assessment completed, LR at 80 cc/h -PT and OT consulted, appreciate recommendations -Fall precautions, aspiration precautions -Continue aspirin when dysphagia assessment is completed and cleared -Consider changing simvastatin to high intensity statin such as rosuvastatin or atorvastatin Present on Admission?: Yes (2) Acute UTI: Plan: - Urinalysis with nitrites and bacteria with symptoms of increased confusion -Initially given ciprofloxacin in the ED, switch to Rocephin -Urine cultures ordered, pending Present on Admission?: Yes (3) Urinary incontinence: Plan: - Unfortunately with frequent episodes of urinary incontinence that is chronic for her -Pure wick ordered -Apply topical estradiol every other day as instructed by gynecology Present on Admission?: Yes (4) HTN (hypertension): Plan: - Continue losartan when able to take oral medications Present on Admission?: Yes (5) Hyperlipidemia: Plan: - Consider switching simvastatin to high intensity statin as above Present on Admission?: Yes (6) Hypothyroidism: Plan: - Continue levothyroxine when able to take oral medication Present on Admission?: Yes (7) GERD (gastroesophageal reflux disease): Plan: - Continue Protonix daily Present on Admission?: Yes (8) History of CVA (cerebrovascular accident): Plan: - History of previous CVA in 2017 -Continue aspirin and statin when able Present on Admission?: Yes Plan Disposition: Admit to [facility] for further workup for strokelike symptoms Diet: N.p.o. with LR at 80 cc/h until dysphagia assessment completed DVT prophylaxis: Lovenox CODE STATUS: DNR/DNI as discussed with patient and patient's History of Present Illness Chief Complaint: stroke like symptoms Primary Care Provider: Shahana Arenas PA-C Patient 82-year-old female with a past medical history of previous CVA, hypertension, hyperlipidemia, hypothyroidism, GERD, peripheral vascular disease, osteopenia, and urinary incontinence who presents to the hospital for concern of loss of words and possible strokelike symptoms. It seems over the past 5 to 6 days, patient has had difficulty with finding her words and has had increased dysarthria per the family's history. Patient's is at bedside at the time of my interview. States that there has been increased episodes of confusion since late last week and mostly with word finding as well. Does not seem to have any difficulty with eating food or having coughing episodes. No nausea or vomiting. No vision loss. There did seem to be an episode a couple of nights ago where she fell and landed on her left knee due to a transient episode of weakness, however, she is not having weakness at this time. She den ies any pain with urination or polyuria, however, patient does have a chronic history of urinary incontinence where she has attempted to have a pessary before which resulted in no improvement and had to be removed about 2 weeks ago by gynecology. She feels her symptoms have been present since this procedure occurred, however, she is unsure if this is truly associated or not. Otherwise no other complaints at this time. ED course: Patient evaluated by provider. Labs are significant for a mildly elevated white blood cell count of 11.5, urinalysis positive for urine nitrites and bacteria. CT imaging of the head and neck does not demonstrate any intracranial hemorrhage or arterial occlusion. Left knee x-ray does not demonstrate any acute osseous injury. Urine culture was ordered, patient given fluid. Patient started on ciprofloxacin in the ED. For concern of TIA versus metabolic encephalopathy, the hospitalist service was consulted for further management/treatment. Allergies Allergy/AdvReac Type Severity Reaction Status Date / Time shellfish derived Allergy Mild N/V SEVERE Verified 07/07/23 11:28 Penicillins Allergy Unknown ? REACTION Verified 07/07/23 11:28 Sulfa (Sulfonamide Allergy Unknown ? REACTION Verified 07/07/23 11:28 Antibiotics) donepezil AdvReac Intermediate DIARRHEA Verified 07/07/23 11:28 codeine AdvReac Mild N/V Verified 07/07/23 11:28 Home Medications Medication Instructions Recorded Confirmed Type cholecalciferol (vitamin D3) 25 1,000 unit PO QAM 02/10/18 07/29/23 History mcg (1,000 unit) tablet cyanocobalamin (vitamin B-12) 500 500 mcg PO QAM 02/10/18 07/29/23 History mcg tablet bromelains 500 mg tablet 500 mg PO DAILY 12/14/18 07/29/23 History aspirin 325 mg tablet 325 mg PO DAILY 08/13/20 07/29/23 History docusate sodium 100 mg capsule 100 mg PO DAILY PRN Constipation 08/13/20 07/29/23 History (Colace) ascorbic acid (vitamin C) 500 mg 1,000 mg PO DAILY sickness 09/18/20 07/29/23 History tablet (Vitamin C) metaxalone 800 mg tablet 400 mg (1/2 x 800 mg) PO BID PRN 08/20/22 07/29/23 Rx muscle pain #10 tabs simvastatin 20 mg tablet See Rx Instructions .Route 10/07/22 07/29/23 Rx .COMPLEX #90 tabs levothyroxine 100 mcg tablet 100 mcg PO QAM #90 tabs 02/11/23 07/29/23 Rx losartan 100 mg tablet 100 mg PO QAM #90 tabs 05/07/23 07/29/23 Rx pantoprazole 20 mg tablet,delayed 20 mg PO QAM #90 tabs 05/07/23 07/29/23 Rx release estradiol 0.01% (0.1 mg/gram) 1 g vaginal .COMPLEX #42.5 grams 07/08/23 07/29/23 Rx vaginal cream (Estrace) Past Med/Surg History Medical History History of CVA (cerebrovascular accident) (~2017) Left knee pain PVD (peripheral vascular disease) Osteoarthritis Urinary incontinence GERD (gastroesophageal reflux disease) Hypothyroidism Migraine Cardiac murmur very faint, since childhood Hyperlipidemia Asthma no inhalers now; takes Bromelain HTN (hypertension) Surgical History History of left knee replacement History of open reduction and internal fixation (ORIF) 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) History of cataract surgery b/l History of dilatation and curettage x3 History of total left knee replacement (TKR) History of colonoscopy History of bladder surgery bladder tack x2 History of hysterectomy with bilateral oophorectomy History of tooth extraction all teeth History of appendectomy History of tonsillectomy and adenoidectomy History of endoscopic sinus surgery removal of nasal polyps S/P appendectomy Family History Son Family history of diabetes mellitus Mother Hypertension Myocardial infarction Father Hypertension Denies family history of Ovarian cancer Prostate cancer Breast cancer Lung cancer Colorectal cancer Social History Smoking Status: Never smoker Second Hand Exposure: No; Do You Dip or Chew Tobacco: No; Tobacco Cessation Education Requested by Patient: No Hx Alcohol Use: No Hx Substance Use: No Preferred Language: Bahamian Communication Ability: Effective Visual Impairment: Limited 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: Normal Loading And Unloading Supervisor Required: No Beliefs That Will Affect Care: Restorationism Restorationism Beliefs: Hoahaoism. marital status: Current Living Situation: Spouse Current Living Situation Comment: Lives with Clay Dove current occupational status: retired How many Children do You have: 2 Other Information That Helps Us Care for You: No Feels Safe at Home: Yes Safety Concerns: Feels Safe At This Time Childhood Exposure to Second-Hand Smoke: No caffeine: Yes (coffee 1 cup daily ) Dental Care, Regularly: No Physical Activity Frequency: 3-4 Times per Week Seatbelt Use: always Sunscreen Use: Yes Assistive Devices: Cane, Glasses, Hospital Bed and Walker Review of Systems Review of Systems: All systems reviewed & are unremarkable except as noted in HPI & below Physical Exam Constitutional: well nourished and + acute distress Eyes: + anicteric sclerae Left eyelid droop noted. Chronic issue per patient. Neck: trachea midline, no thyromegaly Respiratory: normal respiratory effort, lungs clear to auscultation Cardiovascular: RRR, no murmur, no edema Vessels: no JVD Extremities: no edema Gastrointestinal (Abdomen): normal bowel sounds, soft, nontender, no hepatosplenomegaly Musculoskeletal: Head/Neck/Chest: normocephalic and head atraumatic Skin: normal turgor Neurologic: moves all extremities and awake Speech / Cognition: + abnormal speech (Patient does have some dysarthria during interview without aphasia) Motor/Sensory: no tremor Cranial Nerves: PERRL, normal accommodation, normal facial strength, tongue midline, normal hearing, able to elevate shoulders bilaterally and symmetric palate elevation Psychiatric: A+Ox3, euthymic affect Genitourinary: + abnormal external appearance (Labia dr yness and atrophy noted) Results & Data Results & Data Vital Signs (Past 12 Hours) Vital Signs Temp Pulse Pulse Resp BP BP Pulse Ox 07/29/23 19:12 73 22 159/97 H 98 07/29/23 16:23 86 07/29/23 15:55 36.8 C 125 H 22 173/93 H 94 O2 Del Method 07/29/23 19:12 Room Air 07/29/23 16:23 07/29/23 15:55 Room Air Code Status & VTE Plan VTE Prophylaxis Plan VTE Prophylaxis will be ordered: Yes Supervising Physician Co-Signing Physician Notes Patient seen and examined, chart reviewed, case discussed with Chris Casarez and I agree with the assessment and plan as above except as otherwise noted Labs and images reviewed David is seen at the bedside with her present. She reports for the last week she has had more difficulty finding words and reports that she seems to have some slurred speech intermittently. She reports that she felt globally weak and fell to her left knee feeling weak and washed out earlier in the week but denies any focal/asymmetrical weakness, and no sensory change. Hip flexion, ankle dorsiflexion/plantarflexion, liquor bridge operator helper strength, elbow flexion, shoulder flexion are all intact with full strength and symmetrical at time of bedside assessment. She has a congenital left eyelid droop present since which causes some asymmetry, but otherwise has no new facial asymmetry. Tongue protrudes midline. She has decreased visual acuity with a history of cataracts, denies vision change. Somewhat hard of hearing but hearing is grossly intact. She has had urinary incontinence and has had recent pessary manipulation and removal with CLERK MANAGER with subsequent pelvic/urinary discomfort which she is not sure if this is from the pessary or potentially from UTI. Denies fevers and chills, but endorses getting cold easily. At time bedside assessment speech is fluent, very slight dysarthria is noted but speech is easily understandable and with a generally normal prosody. Suspect most likely cause is UTI with metabolic encephalopathy; however given expressive aphasia and some dysarthria MRI for completion has been ordered. CThead, CT angio of the head and neck are without acute findings. She currently takes a full dose aspirin daily due to history of TIA and this also helps with arthritis pain. Has been switched from ciprofloxacin to Rocephin. Follow UCx and adjust antibiotics based on sensitivities. Agree with assessment and management above. Patient is seen both initially in the ER and following resident evaluation and assessment and is well/nontoxic and without any focal deficits at time of reassessment.
[2023-07-29] MEDS: ENOXAPARIN INJ 40 MG/0.4 ML SYR SQ ONE (20:40)
[2023-07-29] MEDS: LACTATED RINGER'S 1,000 ML IV SCH (22:01)
[2023-07-29] MEDS ORDERED: METAXALONE 800 MG TABLET PO PRN (22:01)
[2023-07-29] MEDS ORDERED: DOCUSATE SODIUM 100 MG CAP PO PRN (22:01)
--- NOTE | 2023-07-29 22:37 | Magnetic Resonance Report ---
Exam(s): MRI HEAD Without Contrast EXAM: MR Head Without Intravenous Contrast CLINICAL HISTORY: Reason for exam: Stroke like symptoms. TECHNIQUE: Magnetic resonance images of the head/brain without intravenous contrast in multiple planes. Mild motion artifact. COMPARISON: Head CT done earlier and MRI brain 09/28/20. FINDINGS: Brain: No mass effect or acute infarct. No acute hemorrhage. Mild atrophy and moderate, chronic white matter disease. Ventricles: No hydrocephalus or midline shift. Bones/joints: No acute bony lesion. Soft tissues: No scalp hematoma. Sinuses: Clear. Mastoid air cells: No mastoid effusion. IMPRESSION: 1. Mild age-related findings. 2. No acute infarct, bleed, acute intracranial abnormality, or interval change. Electronically signed by: Magalie Collier M.D. 07/29/23 22:35 PM
[2023-07-29] MEDS: SIMVASTATIN 20 MG TAB PO SCH (22:58)
[2023-07-29] MEDS: cefTRIAXone SODIUM 2,000 MG in DEXTROSE 5 % MINI-B 50 ML IV SCH (22:59)
[2023-07-30] MEDS: LEVOTHYROXINE SODIUM 100 MCG TABLET PO SCH (05:37)
[2023-07-30 07:43] LABS: Hematocrit (blood only) 38.4 % (37.0-47.0); Hemoglobin 12.3 g/dl (12.0-16.0); Mean Corpuscular Hemoglobin 29.5 pg (25.0-34.0); Mean Corpuscular Volume 92.1 fL (80.0-100.0); Mean Platelet Volume 9.9 fL (9.4-12.4); Platelet Count 285 K/uL (130-400); RDW Coefficient of Variation 13.3 % (11.5-14.5); RDW Standard Deviation 45.1 fL (36.4-46.3); Red Blood Count 4.17 M/uL (4.20-5.40); White Blood Count 8.46 K/ul (4.8-10.8)
[2023-07-30 08:19] LABS: BUN Creatinine Ratio 17.6 (10-20); Calcium 9.1 mg/dl (8.6-10.3); Est GFR (African American) 86.2 ml/min; Est GFR (Non-African American) 74.4 ml/min
--- NOTE | 2023-07-30 09:11 | Hospitalist Progress Note ---
Date of Service July 30, 2023 Assessment & Plan (1) Stroke-like symptoms: Plan: Patient 82-year-old female with a past medical history of previous CVA, hypertension, hyperlipidemia, hypothyroidism, GERD, peripheral vascular disease, osteopenia, and urinary incontinence who presents to the hospital for concern of loss of words and possible strokelike symptoms. Patient without acute abnormality seen on CT/CTA/MRI imaging. Pt with likely metabolic encephalopathy from urinary tract infection poa -PT and OT Speech consulted, appreciate recommendations -Fall precautions (2) Acute UTI: Plan: - Urinalysis with nitrites and bacteria with symptoms of increased confusion -Initially given ciprofloxacin in the ED, switch to Rocephin -Urine cultures ordered, Gr negative pending further eval (3) Urinary incontinence: Plan: - Unfortunately with frequent episodes of urinary incontinence that is chronic for her -Pure wick ordered -Apply topical estradiol every other day as instructed by gynecology (4) HTN (hypertension): Plan: - Chronic and stable Continue losartan when able to take oral medications (5) Hypothyroidism: Plan: - Continue levothyroxine when able to take oral medication (6) History of CVA (cerebrovascular accident): Plan: - History of previous CVA in 2017 -Continue aspirin and statin when able Plan DVT prophylaxis: Lovenox CODE STATUS: DNR/DNI as discussed with patient and patient's Admission and Anticipated Discharge Date Admission Date: July 29, 2023 Subjective Patient states she feels much better. She is informed of urinary tract infection likelihood and patient still wants to try to go home however without culture results she was encouraged to stay another day Physical Exam Physical Exam: Patient awake alert appropriate. Some word finding issues. Some weakness. No focal loss. Card exam is regular lungs are clear Results & Data Results & Data Vital Signs (Past 12 Hours) Vital Signs Temp Pulse Resp BP Pulse Ox Pulse Ox O2 Del Method 07/30/23 09:00 Room Air 07/30/23 07:30 98.4 F 63 16 150/85 H 96 Room Air 07/29/23 22:01 Room Air 07/29/23 22:01 96 07/29/23 22:01 Room Air 07/29/23 22:01 98.8 F 70 16 154/80 H 96 Room Air O2 Del Method 07/30/23 09:00 07/30/23 07:30 07/29/23 22:01 07/29/23 22:01 Room Air 07/29/23 22:01 07/29/23 22:01 Laboratory Results Reviewed CBC reviewed chemistry Updated at bedside PG Care Time/CCT Total # of Minutes Spent Total Time Spent with Patient: Total time spent is greater than 50% in coordination of care (as documented) at patient's floor/unit and/or counseling patient: Coding Level of Care Code 83202 SUB INP/OBS CARE 3/50MIN Diagnoses Stroke-like symptoms R29.90 Acute UTI N39.0 Urinary incontinence R32 HTN (hypertension) I10 Hypothyroidism E03.9 History of CVA (cerebrovascular accident) Z86.73
[2023-07-30] MEDS: PANTOprazole 40 MG TAB PO SCH (10:26)
[2023-07-30] MEDS: LOSARTAN POTASSIUM 50 MG TAB PO SCH (10:26)
[2023-07-30] MEDS: ASPIRIN 325 MG ECTAB PO SCH (10:26)
--- NOTE | 2023-07-30 10:34 | Billing Data ---
Date of Service July 30, 2023 Coding Level of Care Code 23479 INT INP/OBS CARE
--- NOTE | 2023-07-30 12:13 | Electrocardiogram Report ---
Test Reason : Blood Pressure : / mmHG Vent. Rate : 083 BPM Atrial Rate : 083 BPM P-R Int : 140 ms QRS Dur : 078 ms QT Int : 350 ms P-R-T Axes : 047 010 032 degrees QTc Int : 411 ms Normal sinus rhythm Normal ECG When compared with ECG of 25-APR-2018 11:31, No significant change was found Confirmed by Laron Cat ([id number]) on 07/30/2023 12:13:04 PM Referred By: Confirmed By:Laron Cat
[2023-07-30] MEDS: ACETAMINOPHEN 325 MG TAB PO PRN (16:28)
[2023-07-30] MEDS: POLYETHYLENE (MIRALAX) 17 GM PACK PO PRN (16:36)
[2023-07-30] MEDS: ENOXAPARIN INJ 40 MG/0.4 ML SYR SQ SCH (19:36)
[2023-07-30] MEDS ORDERED: ENOXAPARIN INJ 40 MG/0.4 ML SYR SQ SCH (20:00)
--- NOTE | 2023-07-31 16:57 | Discharge Summary ---
Date of Service July 31, 2023 Admission HPI Per Admitting Provider Patient 82-year-old female with a past medical history of previous CVA, hypertension, hyperlipidemia, hypothyroidism, GERD, peripheral vascular disease, osteopenia, and urinary incontinence who presents to the hospital for concern of loss of words and possible strokelike symptoms. It seems over the past 5 to 6 days, patient has had difficulty with finding her words and has had increased dysarthria per the family's history. Patient's is at bedside at the time of my interview. States that there has been increased episodes of confusion since late last week and mostly with word finding as well. Does not seem to have any difficulty with eating food or having coughing episodes. No nausea or vomiting. No vision loss. There did seem to be an episode a couple of nights ago where she fell and landed on her left knee due to a transient episode of weakness, however, she is not having weakness at this time. She denies any pain with urination or polyuria, however, patient does have a chronic history of urinary incontinence where she has attempted to have a pessary before which resulted in no improvement and had to be removed about 2 weeks ago by gynecology. She feels her symptoms have been present since this procedure occurred, however, she is unsure if this is truly associated or not. Otherwise no other complaints at this time. ED course: Patient evaluated by provider. Labs are significant for a mildly elevated white blood cell count of 11.5, urinalysis positive for urine nitrites and bacteria. CT imaging of the head and neck does not demonstrate any intracranial hemorrhage or arterial occlusion. Left knee x-ray does not demonstrate any acute osseous injury. Urine culture was ordered, patient given fluid. Patient started on ciprofloxacin in the ED. For concern of TIA versus metabolic encephalopathy, the hospitalist service was consulted for further management/treatment. Principal Diagnosis metabolic encephalopathy secondary to e coli uit poa stroke ruled out Discharge Exam awake alert and appropriate, no distress Discharge Data Allergies Allergy/AdvReac Type Severity Reaction Status Date / Time shellfish derived Allergy Mild N/V SEVERE Verified 07/07/23 11:28 Penicillins Allergy Unknown ? REACTION Verified 07/07/23 11:28 Sulfa (Sulfonamide Allergy Unknown ? REACTION Verified 07/07/23 11:28 Antibiotics) donepezil AdvReac Intermediate DIARRHEA Verified 07/07/23 11:28 codeine AdvReac Mild N/V Verified 07/07/23 11:28 Consultations 07/29/23 17:53 ED Decision to Admit Stat Ordered Studies Chest X-Ray 07/29/23 16:13 XR chest 1V portable CLINICAL HISTORY: neuro deficit, acute stroke suspected COMPARISON STUDY: Chest radiograph April 25, 2018. FINDINGS: Lung volumes are normal. Lungs are clear. There is no pneumothorax or pleural effusion. Skin folds project over the chest. Mild cardiomegaly is unchanged. Mediastinal contours are normal. There is no evidence for pulmonary edema. IMPRESSION: No acute cardiopulmonary findings. ACT 112: Negative or not required by law. Electronically signed by: Krish Salvador M.D. 07/29/2023 4:[address] 07/29/23 16:13 CT angio neck with con, CT head/brain wo con, CT angio head w con CLINICAL HISTORY: neuro deficit, acute stroke suspected TECHNIQUE: Contiguous axial CT images of the head were acquired from the base of the skull to the vertex without intravenous contrast administration. CT angiography of the head and neck was performed following intravenous administration of iodinated contrast. Coronal and sagittal MIPS were obtained from the axial data set and were submitted for review. Automated dose lowering techniques and/or adjustment according to patient size were utilized for this examination. All measurements were calculated based on NASCET criteria. CT DOSE: 1093.38 mGy.cm Comparison: Comparison is made to MRI brain 09/20/2020 FINDINGS: CT head: Areas of decreased attenuation are present in the periventricular and subcortical white matter bilaterally consistent with small vessel ischemic disease. Generalized cerebral atrophy with commensurate enlargement of the ventricles, sulci, and cisterns is also present. There is no acute intracranial hemorrhage or evidence of acute territorial infarction. No shift of the midline structures, mass effect, or extra-axial abnormalities are shown. Atherosclerotic calcifications are present in the intracranial segments of the internal carotid arteries. Focal encephalomalacia in the left thalamus unchanged from prior exam. Lungs and soft tissues are unremarkable. CTA Neck: The left common carotid artery shares common origin with the innominate artery. There is no significant atherosclerotic plaque in the aortic arch or the origins of the innominate, left common carotid, and left subclavian arteries. The common carotid, external carotid, cervical segments of the internal carotid arteries, and the cervical segments of the vertebral arteries are patent without hemodynamically significant stenosis. The right vertebral ar jeanine is dominant. CTA Head: The anterior and posterior cerebral circulations are patent. No hemodynamically significant stenosis, aneurysm, dissection, or arteriovenous malformation is shown. IMPRESSION: 1. No acute intracranial hemorrhage, evidence of acute territorial infarction, or other acute intracranial disease process. 2. No occlusion, hemodynamically significant stenosis, or dissection in the major cervical arteries. 3. No occlusion, hemodynamically significant stenosis, aneurysm, dissection, or arteriovenous malformation in the major intracranial arteries. Assessment of stenosis of the internal carotid arteries is based on NASCET criteria. ACT 112: Negative or not required by law. Electronically signed by: Robin Bernardo M.D. 07/29/2023 4:53 PM Head CTA 07/29/23 16:13 CT angio neck with con, CT head/brain wo con, CT angio head w con CLINICAL HISTORY: neuro deficit, acute stroke suspected TECHNIQUE: Contiguous axial CT images of the head were acquired from the base of the skull to the vertex without intravenous contrast administration. CT angiography of the head and neck was performed following intravenous administration of iodinated contrast. Coronal and sagittal MIPS were obtained from the axial data set and were submitted for review. Automated dose lowering techniques and/or adjustment according to patient size were utilized for this examination. All measurements were calculated based on NASCET criteria. CT DOSE: 1093.38 mGy.cm Comparison: Comparison is made to MRI brain 09/20/2020 FINDINGS: CT head: Areas of decreased attenuation are present in the periventricular and subcortical white matter bilaterally consistent with small vessel ischemic disease. Generalized cerebral atrophy with commensurate enlargement of the ventricles, sulci, and cisterns is also present. There is no acute intracranial hemorrhage or evidence of acute territorial infarction. No shift of the midline structures, mass effect, or extra-axial abnormalities are shown. Atherosclerotic calcifications are present in the intracranial segments of the internal carotid arteries. Focal encephalomalacia in the left thalamus unchanged from prior exam. Lungs and soft tissues are unremarkable. CTA Neck: The left common carotid artery shares common origin with the innominate artery. There is no significant atherosclerotic plaque in the aortic arch or the origins of the innominate, left common carotid, and left subclavian arteries. The common carotid, external carotid, cervical segments of the internal carotid arteries, and the cervical segments of the vertebral arteries are patent without hemodynamically significant stenosis. The right vertebral artery is dominant. CTA Head: The anterior and posterior cerebral circulations are patent. No hemodynamically significant stenosis, aneurysm, dissection, or arteriovenous malformation is shown. IMPRESSION: 1. No acute intracranial hemorrhage, evidence of acute territorial infarction, or other acute intracranial disease process. 2. No occlusion, hemodynamically significant stenosis, or dissection in the major cervical arteries. 3. No occlusion, hemodynamically significant stenosis, aneurysm, dissection, or arteriovenous malformation in the major intracranial arteries. Assessment of stenosis of the internal carotid arteries is based on NASCET criteria. ACT 112: Negative or not required by law. Electronically signed by: Robin Bernardo M.D. 07/29/2023 4:53 PM Neck CTA 07/29/23 16:13 CT angio neck with con, CT head/brain wo con, CT angio head w con CLINICAL HISTORY: neuro deficit, acute stroke suspected TECHNIQUE: Contiguous axial CT images of the head were acquired from the base of the skull to the vertex without intravenous contrast administration. CT angiography of the head and neck was performed following intravenous administration of iodinated contrast. Coronal and sagittal MIPS were obtained fr om the axial data set and were submitted for review. Automated dose lowering techniques and/or adjustment according to patient size were utilized for this examination. All measurements were calculated based on NASCET criteria. CT DOSE: 1093.38 mGy.cm Comparison: Comparison is made to MRI brain 09/20/2020 FINDINGS: CT head: Areas of decreased attenuation are present in the periventricular and subcortical white matter bilaterally consistent with small vessel ischemic disease. Generalized cerebral atrophy with commensurate enlargement of the ventricles, sulci, and cisterns is also present. There is no acute intracranial hemorrhage or evidence of acute territorial infarction. No shift of the midline structures, mass effect, or extra-axial abnormalities are shown. Atherosclerotic calcifications are present in the intracranial segments of the internal carotid arteries. Focal encephalomalacia in the left thalamus unchanged from prior exam. Lungs and soft tissues are unremarkable. CTA Neck: The left common carotid artery shares common origin with the innominate artery. There is no significant atherosclerotic plaque in the aortic arch or the origins of the innominate, left common carotid, and left subclavian arteries. The common carotid, external carotid, cervical segments of the internal carotid arteries, and the cervical segments of the vertebral arteries are patent without hemodynamically significant stenosis. The right vertebral artery is dominant. CTA Head: The anterior and posterior cerebral circulations are patent. No hemodynamically significant stenosis, aneurysm, dissection, or arteriovenous malformation is shown. IMPRESSION: 1. No acute intracranial hemorrhage, evidence of acute territorial infarction, or other acute intracranial disease process. 2. No occlusion, hemodynamically significant stenosis, or dissection in the major cervical arteries. 3. No occlusion, hemodynamically significant stenosis, aneurysm, dissection, or arteriovenous malformation in the major intracranial arteries. Assessment of stenosis of the internal carotid arteries is based on NASCET criteria. ACT 112: Negative or not required by law. Electronically signed by: Robin Bernardo M.D. 07/29/2023 4:53 PM Knee X-Ray 07/29/23 16:44 XR knee LT 4V CLINICAL HISTORY: fall TECHNIQUE: 4 views of the left knee were obtained. Comparison: Comparison is made to knee radiographs 08/11/2017 FINDINGS: There is no evidence of an acute fracture. Patient is status post total knee arthroplasty. No perihardware lucency or hardware fracture is seen. No joint effusion is seen. No soft tissue abnormality is seen. IMPRESSION: No evidence of acute osseous injury. ACT 112: Negative or not required by law. Electronically signed by: Robin Bernardo M.D. 07/29/2023 5:30 PM Brain MRI 07/29/23 19:37 Exam(s): MRI HEAD Without Contrast EXAM: MR Head Without Intravenous Contrast CLINICAL HISTORY: Reason for exam: Stroke like symptoms. TECHNIQUE: Magnetic resonance images of the head/brain without intravenous contrast in multiple planes. Mild motion artifact. COMPARISON: Head CT done earlier and MRI brain 09/28/20. FINDINGS: Brain: No mass effect or acute infarct. No acute hemorrhage. Mild atrophy and moderate, chronic white matter disease. Ventricles: No hydrocephalus or midline shift. Bones/joints: No acute bony lesion. Soft tissues: No scalp hematoma. Sinuses: Clear. Mastoid air cells: No mastoid effusion. IMPRESSION: 1. Mild age-related findings. 2. No acute infarct, bleed, acute intracranial abnormality, or interval change. Electronically signed by: Magalie Collier M.D. 07/29/23 22:35 PM Hospital Course (1) Stroke-like symptoms: Patient 82-year-old female with a past medical history of previous CVA, hypertension, hyperlipidemia, hypothyroidism, GERD, peripheral vascular disease, osteopenia, and urinary incontinence who presents to the hospital for concern of loss of words and possible strokelike symptoms. Patient without acute abnormality seen on CT/CTA/MRI imaging. stroke ruled out Pt with metabolic encephalopathy from urinary tract infection poa -PT and OT Speech consulted, appreciate recommendations, able to return to home -Fall precautions (2) Acute UTI: - e coli cormier sensitive, will complete Augmentin, counselled on probiotics (3) Urinary incontinence: - Unfortunately with frequent episodes of urinary incontinence that is chronic for her - -Apply topical estradiol every other day as instructed by gynecology (4) HTN (hypertension): - Chronic and stable Continue losartan when able to take oral medications (5) Hypothyroidism: - Continue levothyroxine when able to take oral medication (6) History of CVA (cerebrovascular accident): - History of previous CVA in 2017 -Continue aspirin and statin when able Plan CODE STATUS: DNR/DNI as discussed with patient and patient's Total Time Total Time Spent Total Time Spent (In Minutes): It required greater than 30 minutes to prepare this patient for discharge. Discharge Plan Discharge Items Patient Disposition: Home - Self-Care Reason For Visit: ADMISSION Discharge Diagnosis: urinary tract infection present on admission neurologic symptoms from infection present on admission stoke has been ruled out Activity: Per Instructions section Activity Comment: gradually increase activity Non-emergency contact: Primary Care Provider Call non-emergency contact if: your symptoms worsen Follow-up/Referrals: Shahana Arenas PA-C [Primary Care Provider] - 08/07/23 10:00 am Diet: Regular Addtl Attending Provider Instructions: you have been diagnosed with an E coli urinary tract infection, this is likely responsible for the issues you were having with fatigue and your speech when you came in. please drink plenty of fluids and complete your antibiotics, you may wish to eat yogurt or cottage cheese to help protect your GI tract from undesirable affects of the antibiotics Pending Studies at Discharge: No Stand-Alone Forms: My Respirics, Smoking Cessation Medications and DC Order Prescriptions: New cephalexin 500 mg capsule 500 mg PO Q6H 5 Days Qty: 20 0RF Continued simvastatin 20 mg tablet See Rx Instructions .ROUTE .COMPLEX Qty: 90 3RF Dose Instruction: TAKE 1 TABLET BY MOUTH EVERY DAY AT BEDTIME Rx Instructions: TAKE 1 TABLET BY MOUTH EVERY DAY AT BEDTIME levothyroxine 100 mcg tablet 100 mcg PO QAM Qty: 90 3RF estradiol [Estrace] 0.01 % (0.1 mg/gram) cream 1 g vaginal .COMPLEX Qty: 42.5 3RF Rx Instructions: 1 g vaginally; apply every other day at bedtime for 3 months than once or twice weekly thereafter. aspirin 325 mg tablet 325 mg PO DAILY docusate sodium [Colace] 100 mg capsule 100 mg PO DAILY PRN (Reason: Constipation) metaxalone 800 mg tablet 400 mg PO BID PRN (Reason: muscle pain) Qty: 10 1RF pantoprazole 20 mg tablet,delayed release (DR/EC) 20 mg PO QAM Qty: 90 3RF losartan 100 mg tablet 100 mg PO QAM Qty: 90 3RF cyanocobalamin (vitamin B-12) 500 mcg Tablet 500 mcg PO QAM cholecalciferol (vitamin D3) 1,000 unit Tablet 1,000 unit PO QAM bromelains 500 mg tablet 500 mg PO DAILY ascorbic acid (vitamin C) [Vitamin C] 500 mg tablet 1,000 mg PO DAILY Discharge Orders: Discharge Order (Routine); Ordered 07/31/23 Ordered By: Allan Ramirez Admission Data Admit Date/Time: 07/29/23 19:11 Attending Provider: Allan Ramirez Admit Provider: Chris Casarez Primary Care Provider: Shahana Arenas Other Providers: Rick Johnston; [facility] Other Interventions: Discharge Summary Assessment (RN) Last Done: 07/31/23 11:12 Coding Level of Care Code 24914 INP/OBS DISCH >30 MIN Diagnoses Stroke-like symptoms R29.90 Acute UTI N39.0 Urinary incontinence R32 HTN (hypertension) I10 Hypothyroidism E03.9 History of CVA (cerebrovascular accident) Z86.73
== END 2023-07-31 11:56 | disposition home health service (06) ==
LOC: ED 15:53 → 3W 15:53 → SUATTDRO 19:11 → 3W 21:09

== ENCOUNTER 2023-08-24 10:56 | Inpatient (IN) ==
[2023-08-24 12:06] LABS: Basophils # (auto) 0.09 K/uL (0.00-0.20); Basophils % (auto) 1.1 %; Eosinophils # (auto) 0.25 K/uL (0.00-0.50); Eosinophils % (auto) 3.1 %; Hematocrit (blood only) 42.2 % (37.0-47.0); Hemoglobin 13.6 g/dl (12.0-16.0); Immature Granulocytes # (auto) 0.03 K/uL (0.01-0.20); Immature Granulocytes % (auto) 0.4 %; Lymphocytes % (auto) 15.1 %; Mean Corpuscular Hemoglobin 29.2 pg (25.0-34.0); Mean Corpuscular Hgb Conc 32.2 g/dL (32.0-36.0); Mean Corpuscular Volume 90.6 fL (80.0-100.0); Mean Platelet Volume 9.7 fL (9.4-12.4); Monocytes # (auto) 0.63 K/uL (0.11-0.59); Monocytes % (auto) 7.9 %; Neutrophils # (auto) 5.74 K/uL (1.40-6.50); Neutrophils % (auto) 72.4 %; Platelet Count 334 K/uL (130-400); RDW Coefficient of Variation 12.7 % (11.5-14.5); RDW Standard Deviation 42.1 fL (36.4-46.3); Red Blood Count 4.66 M/uL (4.20-5.40); White Blood Count 7.94 K/ul (4.8-10.8)
[2023-08-24 12:19] LABS: Alanine Aminotransferase 10 U/L (7-52); Albumin Globulin Ratio 1.6 (0.9-2); Albumin Level 4.2 gm/dl (3.4-5.0); Alkaline Phosphatase 60 U/L (34-104); Anion Gap 6 (3-11); Aspartate Aminotransferase 15 U/L (13-39); BUN Creatinine Ratio 15.2 (10-20); Bilirubin,Total 0.3 mg/dl (0.2-1.0); Blood Urea Nitrogen 12 mg/dl (6-23); Calcium 9.7 mg/dl (8.6-10.3); Carbon Dioxide 27 mmol/L (21-32); Chloride 106 mmol/L (98-107); Est GFR (African American) 79.7 ml/min; Est GFR (Non-African American) 68.7 ml/min; Globulin 2.7 gm/dl (2.5-4.0); Glucose 94 mg/dl (70-99(Fasting)); Lipase 12 U/L (11-82); Potassium 3.9 mmol/L (3.5-5.1); Sodium 139 mmol/L (136-145); Total Protein 6.9 gm/dl (6.0-8.3)
--- NOTE | 2023-08-24 12:25 | Emergency Department Note ---
Impression & Plan Diverticulitis, Abdominal pain, Diarrhea ED Provider Note NAME: MELO CHAVARRIA AGE: 82 SEX: F : 1940 ARRIVES VIA: Walk-In INFORMANT: Patient ED PROVIDER(S): Dominic Mendoza DO CHIEF COMPLAINT: Abdominal pain, diarrhea, possible hematuria HPI: Patient is an 82-year-old female who presents to the ER with her present at bedside. Additional history is obtained from who notes that she was on antibiotics about 3 weeks ago for UTI. She just started antibiotics for diverticulitis over a week ago. She has been having diarrhea and lower abdominal pain with this. She denies any nausea or vomiting. She thinks that she noticed some blood in her urine but is not 100% sure. She denies any bright red blood or dark tarry stools. No headache or change in vision. No chest pain or shortness of breath. No dysuria, urgency, or frequency. No other exacerbating or remitting factors. ADDITIONAL HISTORY OBTAINED: Additional history is obtained from who notes that she was on antibiotics about 3 weeks ago for UTI. She just started antibiotics for diverticulitis over a week ago. Chronic Medical/Social Conditions Affecting Care: Per HPI PAST MEDICAL HISTORY:See Below PAST SURGICAL HISTORY:See Below FAMILY HISTORY:See Below SOCIAL HISTORY:See Below HOME MEDICATIONS:See Below ALLERGIES:See Below VITALS:See Below PHYSICAL EXAMINATION: GENERAL: Sitting up in bed, alert, well appearing, well nourished, no distress, non-toxic EYE EXAM: normal conjunctiva. PERRL and EOM's grossly intact. OROPHARYNX: mucous membranes are moist NECK: supple, no nuchal rigidity, no adenopathy, non-tender LUNGS: Clear to auscultation. Normal chest wall mechanics HEART: no murmurs, S1 normal and S2 normal ABDOMEN: abdomen soft, non-tender, normo-active bowel sounds, no masses, no rebound or guarding. : Performed with female Shreya RN at bedside no obvious vaginal bleeding or vaginal discharge RECTAL: Brown stools BACK: Back is symmetrical on inspection and there is no deformity, no midline tenderness, no CVA tenderness. SKIN: no rashes and no bruising UPPER EXTREMITIES: upper extremities are grossly normal. LOWER EXTREMITIES: No pitting edema. NEURO EXAM: awake alert following commands, cranial nerves II-XII grossly intact, normal speech, no gross weakness of arms, no gross weakness of legs. No drift. Finger to nose intact. Gross sensation intact. MEDICAL DECISION MAKING: Patient is an 82-year-old female who presents ER for above-stated complaint. IV was established blood work was obtained. Labs show no significant leukocytosis or anemia. BMP along LFTs bilirubin and lipase is unremarkable. TSH was elevated at 26. Mag was 2.2. UA was clean. CT abdomen pelvis confirms diverticulitis but it has improved slightly. Patient was pleasantly demented and did discuss with the . Based on her weakness, unable to get to the bathroom and persistent diverticulitis in light of 10 days of antibiotics did discuss with case with the hospitalist for further evaluation management treatment. Please see Dr. Venkat Wilcox's note for further evaluation. Patient was given IV fluids. Held on antibiotics as notes that they do not want them at this time and they would prefer to discuss with the hospitalist Consults/Care Managements Discussions: Per [facility] Triage Nursing notes reviewed. Limited review of prior medical records performed Vital Signs: reviewed and remarkable for no significant abnormalities Differential diagnosis: Differential diagnoses includes but is not limited to gastritis, peptic ulcer disease, GERD, gallbladder disease, pancreatitis, small bowel obstruction, appendicitis, diverticulitis, hernia, urinary tract infection, torsion, perforation, trauma, infectious. ER treatment provided: See below Diagnostics interpreted by me include EKG and cardiac monitoring as listed below: -Cardiac Monitoring: An order was placed for continuous cardiac monitoring. The monitor shows a rate of 80 with sinus rhythm. -ECG: none -Laboratory studies:Interpreted by me as stated above in MDM and shown below. Imaging studies: Xrays: As interpreted by me:none CTs show: CT abdomen pelvis per my preliminary interpretation shows no obvious bowel obstruction CT abdomen pelvis per radiology shows no acute pathology with exception of mild diverticulitis Procedures:none Critical Care: None Past Med/Surg History Medical History History of CVA (cerebrovascular accident) (~2017) Left knee pain PVD (peripheral vascular disease) Osteoarthritis Urinary incontinence GERD (gastroesophageal reflux disease) Hypothyroidism Migraine Cardiac murmur Hyperlipidemia Asthma HTN (hypertension) Surgical History History of left knee replacement History of open reduction and internal fixation (ORIF) procedure History of cataract surgery History of dilatation and curettage History of total left knee replacement (TKR) History of colonoscopy History of bladder surgery History of hysterectomy with bilateral oophorectomy History of tooth extraction History of appendectomy History of tonsillectomy and adenoidectomy History of endoscopic sinus surgery S/P appendectomy Family History Son Family history of diabetes mellitus Mother Hypertension Myocardial infarction Father Hypertension Denies family history of Ovarian cancer Prostate cancer Breast cancer Lung cancer Colorectal cancer Social History Smoking Status: Never smoker Second Hand Exposure: No; Do You Dip or Chew Tobacco: No; Hx Alcohol Use: No Hx Substance Use: No Preferred Language: Mohawk Communication Ability: Effective Visual Impairment: Limited 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: Normal 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 marital status: Current Living Situation: Spouse Current Living Situation Comment: Lives with Clay Chavarria current occupational status: retired How many Children do You have: 2 Feels Safe at Home: Yes Childhood Exposure to Second-Hand Smoke: No caffeine: Yes (coffee 1 cup daily ) Dental Care, Regularly: No Physical Activity Frequency: 3-4 Times per Week Seatbelt Use: always Sunscreen Use: Yes Assistive Devices: Stair Lift and Walker Allergies Allergies Allergy/AdvReac Type Severity Reaction Status Date / Time shellfish derived Allergy Mild N/V SEVERE Verified 08/24/23 15:19 Penicillins Allergy Unknown ? REACTION Verified 08/24/23 15:19 Sulfa (Sulfonamide Allergy Unknown ? REACTION Verified 08/24/23 15:19 Antibiotics) donepezil AdvReac Intermediate DIARRHEA Verified 08/24/23 15:19 codeine AdvReac Mild N/V Verified 08/24/23 15:19 Home Meds Home Medications Medication Instructions Recorded Confirmed cholecalciferol (vitamin D3) 25 1,000 unit PO QAM 02/10/18 08/24/23 mcg (1,000 unit) tablet cyanocobalamin (vitamin B-12) 500 500 mcg PO QAM 02/10/18 08/24/23 mcg tablet bromelains 500 mg tablet 0 mg PO DAILY 12/14/18 08/24/23 docusate sodium 100 mg capsule 100 mg PO DAILY PRN Constipation 08/13/20 08/24/23 (Colace) ascorbic acid (vitamin C) 500 mg 1,000 mg PO DAILY sickness 09/18/20 08/24/23 tablet (Vitamin C) PURE BRAINPOWER 1 cap PO QAM 08/03/23 08/24/23 calcium carbonate 500 mg-vitamin 1 tab PO DAILY 08/03/23 08/24/23 D3 200 unit-vitamin K2 90 mcg tablet inulin 2.5 gram chewable tablet 0 g PO QPM 08/03/23 08/24/23 naproxen sodium 220 mg capsule 220 mg PO Q8H PRN pain 08/03/23 08/24/23 (Aleve) simvastatin 20 mg tablet 0 mg PO HS 08/24/23 08/24/23 Previous Rx's Medication Instructions Recorded levothyroxine 100 mcg tablet 100 mcg PO QAM #90 tabs 02/11/23 losartan 100 mg tablet 100 mg PO QAM #90 tabs 05/07/23 pantoprazole 20 mg tablet,delayed 20 mg PO QAM #90 tabs 05/07/23 release estradiol 0.01% (0.1 mg/gram) 1 g vaginal .COMPLEX #42.5 grams 07/08/23 vaginal cream (Estrace) metaxalone 800 mg tablet 400 mg (1/2 x 800 mg) PO BID PRN 08/05/23 muscle pain #10 tabs Results & Data (ED) Vital Signs Vital Signs - 24 hr 08/24/23 11:11 08/24/23 12:50 08/24/23 16:45 Temperature 36.8 C Temperature Source Temporal Artery Scan Pulse Rate 74 61 77 Pulse Rate [Apical] Pulse Rhythm [Apical] Pulse Strength [Apical] Respiratory Rate 16 Respiratory Effort / Characteristics Non-Labored Spontaneous Respiratory Depth Normal Respiratory Pattern Blood Pressure 179/83 H Blood Pressure [Left Arm] Blood Pressure Mean 115 Blood Pressure Mean [Left Arm] Pulse Oximetry 97 Oxygen Delivery Method Sepsis New/Unexplained Change in Mental Status No Sepsis Action Taken by Nursing No Action Required 08/24/23 17:42 08/24/23 17:43 Temperature Temperature Source Pulse Rate Pulse Rate [Apical] 68 Pulse Rhythm [Apical] Regular Pulse Strength [Apical] Normal Respiratory Rate 17 Respiratory Effort / Characteristics Non-Labored Spontaneous Respiratory Depth Normal Respiratory Pattern Regular Blood Pressure Blood Pressure [Left Arm] 161/82 H Blood Pressure Mean Blood Pressure Mean [Left Arm] 108 Pulse Oximetry 98 98 Oxygen Delivery Method Room Air Room Air Sepsis New/Unexplained Change in Mental Status Sepsis Action Taken by Nursing Laboratory Data 08/24/23 16:43 08/24/23 11:41 Lab Results 08/24/23 08/24/23 08/24/23 Range/Units 11:41 14:00 16:43 WBC 7.94 (4.8-10.8) K/ul RBC 4.66 (4.20-5.40) M/uL Hgb 13.6 13.5 (12.0-16.0) g/dl Hct 42.2 41.7 (37.0-47.0) % MCV 90.6 (80.0-100.0) fL MCH 29.2 (25.0-34.0) pg MCHC 32.2 (32.0-36.0) g/dL RDW Std Deviation 42.1 (36.4-46.3) fL RDW Coeff of Rosaura 12.7 (11.5-14.5) % Plt Count 334 (130-400) K/uL MPV 9.7 (9.4-12.4) fL Immature Gran % (Auto) 0.4 % Neut % (Auto) 72.4 % Lymph % (Auto) 15.1 % [place] % (Auto) 7.9 % Eos % (Auto) 3.1 % Baso % (Auto) 1.1 % Neut # (Auto) 5.74 (1.40-6.50) K/uL Lymph # (Auto) 1.20 (1.20-3.40) K/uL [place] # (Auto) 0.63 H (0.11-0.59) K/uL Eos # (Auto) 0.25 (0.00-0.50) K/uL Baso # (Auto) 0.09 (0.00-0.20) K/uL Immature Gran # (Auto) 0.03 (0.01-0.20) K/uL Sodium 139 (136-145) mmol/L Potassium 3.9 (3.5-5.1) mmol/L Chloride 106 (98-107) mmol/L Carbon Dioxide 27 (21-32) mmol/L Anion Gap 6 (3-11) BUN 12 (6-23) mg/dl Creatinine 0.79 (0.6-1.2) mg/dl Est Cr Clr Drug Dosing Not Reportable Est GFR ( Amer) 79.7 ml/min Est GFR (Non-Af Amer) 68.7 ml/min BUN/Creatinine Ratio 15.2 (10-20) Glucose 94 (70-99(Fasting)) mg/dl Calcium 9.7 (8.6-10.3) mg/dl Magnesium 2.2 (1.7-2.4) mg/dl Total Bilirubin 0.3 (0.2-1.0) mg/dl AST 15 (13-39) U/L ALT 10 (7-52) U/L Alkaline Phosphatase 60 (34-104) U/L Total Protein 6.9 (6.0-8.3) gm/dl Albumin 4.2 (3.4-5.0) gm/dl Globulin 2.7 (2.5-4.0) gm/dl Albumin/Globulin Ratio 1.6 (0.9-2) Lipase 12 (11-82) U/L TSH 26.199 H (0.300-4.500) uIu/ml Urine Color Yellow Urine Appearance Clear (Clear) Urine pH 6.0 (4.5-7.5) Ur Specific [place] 1.013 (1.000-1.030) Urine Protein Negative (Negative) Urine Glucose (UA) Negative (Negative) Urine Ketones Negative (Negative) Urine Blood 1+ H (Negative) Urine Nitrite Negative (Negative) Urine Bilirubin Negative (Negative) Urine Urobilinogen Negative (Negative) Ur Leukocyte Esterase Negative (Negative) Urine WBC (Auto) 0-5 (0-5) /hpf Urine RBC (Auto) 3-5 H (0-2) /hpf U Hyaline Cast (Auto) 3-5 H (0-2) /lpf U Epithel Cells (Auto) 3-5 H (0-2) /hpf Urine Bacteria (Auto) None Seen (None Seen) Administered Medications Ceftriaxone Sodium 2,000 mg/ (Dextrose) 50 mls @ 100 mls/hr IV NOW STA; Protocol Stop: 08/24/23 17:31 Last Admin: 08/24/23 17:40 Dose: 100 mls/hr Documented By: GGG Metronidazole (Flagyl) 500 mg in 100 mls @ 100 mls/hr IV NOW STA; Protocol Stop: 08/24/23 17:57 Last Admin: 08/24/23 17:35 Dose: 100 mls/hr Documented By: MARLIN Discontinued Medications Sodium Chloride (Nss) 1,000 mls @ 999 mls/hr IV .Q1H1M ONE Stop: 08/24/23 13:20 Last Infusion: 08/24/23 14:19 Dose: Infused Documented By: Admin: 08/24/23 12:38 Dose: 999 mls/hr Documented By: KIA Pantoprazole Sodium 40 mg/ (Syringe) 10 mls @ 5 mls/min IV NOW ONE Stop: 08/24/23 17:01 Last Admin: 08/24/23 17:35 Dose: 5 mls/min Documented By: MARLIN Ioversol (Optiray 320 100ml) 94 ml IV ONCE ONE Stop: 08/24/23 13:24 Last Admin: 08/24/23 13:23 Dose: 94 ml Documented By: TAVON Miscellaneous (Patient's Height &/Or Weight Needed) 1 each N/A NOW STA Stop: 08/24/23 17:03 Last Admin: 08/24/23 17:37 Dose: 1 each Documented By: MARLIN Imaging Data Radiologist's Impression: Abdomen/Pelvis CT 08/24/23 12:[address] WITH IV CONTRAST CT DOSE: 705.52 mGy.cm HISTORY: Acute left lower quadrant abdominal pain llq abd pain worsening TECHNIQUE: Multiaxial CT images of the abdomen and pelvis were performed following the IV administration of 94 cc of Optiray, A dose lowering technique was utilized adhering to the principles of ALARA. COMPARISON STUDY: 08/14/2023 FINDINGS: Coronary arterial calcifications. Mild right hemidiaphragmatic elevation. Lung bases are generally clear. No free air. Unremarkable spleen, pancreas and gallbladder. Unchanged adrenal gland thickening suggestive of hyperplasia. There is nonspecific heterogeneity is in the left hepatic lobe likely representing focal fatty infiltration. There is patency of the hepatic and portal veins. There are a few cysts noted within the kidneys. Mild bilateral pelvocaliectasis may be secondary to the urinary bladder distention. There is symmetric enhancement of the kidneys. Hysterectomy. Extensive atherosclerosis of the abdominal aorta with mild infrarenal ectasia measuring up to 2.2 cm. There is no lymphadenopathy. Mild nonspecific distal esophageal wall thickening with tiny hiatal hernia. No bowel obstruction. Colonic diverticulosis with subtle acute diverticulitis of the distal descending colon which has improved from prior. There is no abscess. The appendix is reportedly surgically absent. Unremarkable soft tissues. No acute fracture identified. IMPRESSION: 1. Mild acute diverticulitis of the distal descending colon, slightly improved compared to the study from 08/14/2023. 2. No bowel obstruction, abscess or pneumoperitoneum. 3. Additional findings as above. ACT 112: Negative or not required by law. The above report was generated using voice recognition software. It may contain grammatical, syntax or spelling errors. Electronically signed by: Gil Morrison M.D. 08/24/2023 1:45 PM Discharge Plan Visit Data Chief Complaint: Diarrhea Stated Complaint: LOOSE BOWELS, BLOOD ED Provider: Dominic Mendoza Discharge Problem: Diverticulitis, Abdominal pain, Diarrhea Forms Stand Alone Forms: OrderUp Prescriptions Prescriptions: No Action levothyroxine 100 mcg tablet 100 mcg PO QAM Qty: 90 3RF estradiol [Estrace] 0.01 % (0.1 mg/gram) cream 1 g vaginal .COMPLEX Qty: 42.5 3RF Rx Instructions: 1 g vaginally; apply every other day at bedtime for 3 months than once or twice weekly thereafter. naproxen sodium [Aleve] 220 mg capsule 220 mg PO Q8H PRN (Reason: pain) Patient Comments: PT REPORTS SHE WAS INSTRUCTED TO STOP TAKING ASPIRIN AND START TAKING ALEVE Q8H FOR BACK PAIN calcium carb-vitamin D3-vit K2 500 mg calcium- 200 unit-90 mcg tablet 1 tab PO DAILY Patient Comments: PATIENT REPORTED inulin 2.5 gram tablet,chewable 0 g PO QPM Patient Comments: PATIENT REPORTED Rx Instructions: Pt unsure of this OTC med PURE BRAINPOWER capsule 1 cap PO QAM Patient Comments: PATIENT REPORTS. NO DOSAGE ON BOTTLE, PT REPORTS THE SUPPLEMENT CONTAINS BACOGNIZE. docusate sodium [Colace] 100 mg capsule 100 mg PO DAILY PRN (Reason: Constipation) pantoprazole 20 mg tablet,delayed release (DR/EC) 20 mg PO QAM Qty: 90 3RF losartan 100 mg tablet 100 mg PO QAM Qty: 90 3RF metaxalone 800 mg tablet 400 mg PO BID PRN (Reason: muscle pain) Qty: 10 1RF cyanocobalamin (vitamin B-12) 500 mcg Tablet 500 mcg PO QAM cholecalciferol (vitamin D3) 1,000 unit Tablet 1,000 unit PO QAM bromelains 500 mg tablet 0 mg PO DAILY Rx Instructions: Pt unsure of this OTC med at this date/time. ascorbic acid (vitamin C) [Vitamin C] 500 mg tablet 1,000 mg PO DAILY simvastatin 20 mg tablet 0 mg PO HS Rx Instructions: Pt states she still takes, but last filled 01/2023 x90 day supply. Original Directions: 20mg by mouth at bedtime Referrals Referrals: Shahana Arenas PA-C [Primary Care Provider] - Discharge Problem: Abdominal pain Qualifiers: Abdominal location: unspecified location Qualified Code(s): R10.9 - Unspecified abdominal pain Diarrhea Qualifiers: Diarrhea type: unspecified type Qualified Code(s): R19.7 - Diarrhea, unspecified
[2023-08-24] MEDS: SODIUM CHLORIDE 0.9% 1,000 ML IV ONE (12:38)
[2023-08-24] MEDS: OPTIRAY 320 100ml IV ONE (13:23)
--- NOTE | 2023-08-24 13:48 | CT Scan Report ---
ABDOMEN AND PELVIS CT WITH IV CONTRAST CT DOSE: 705.52 mGy.cm HISTORY: Acute left lower quadrant abdominal pain llq abd pain worsening TECHNIQUE: Multiaxial CT images of the abdomen and pelvis were performed following the IV administrat ion of 94 cc of Optiray, A dose lowering technique was utilized adhering to the principles of ALARA. COMPARISON STUDY: 08/14/2023 FINDINGS: Coronary arterial calcifications. Mild right hemidiaphragmatic elevation. Lung bases are ge nerally clear. No free air. Unremarkable spleen, pancreas and gallbladder. Unchanged adrenal gland th ickening suggestive of hyperplasia. There is nonspecific heterogeneity is in the left hepatic lobe li payam representing focal fatty infiltration. There is patency of the hepatic and portal veins. There are a few cysts noted within the kidneys. Mild bilateral pelvocaliectasis may be secondary to t he urinary bladder distention. There is symmetric enhancement of the kidneys. Hysterectomy. Extensive atherosclerosis of the abdominal aorta with mild infrarenal ectasia measuring up to 2.2 cm. There is no lymphadenopathy. Mild nonspecific distal esophageal wall thickening with tiny hiatal hernia. No bowel obstruction. Col onic diverticulosis with subtle acute diverticulitis of the distal descending colon which has improve d from prior. There is no abscess. The appendix is reportedly surgically absent. Unremarkable soft ti ssues. No acute fracture identified. IMPRESSION: 1. Mild acute diverticulitis of the distal descending colon, slightly improved compared to the study from 08/14/2023. 2. No bowel obstruction, abscess or pneumoperitoneum. 3. Additional findings as above. ACT 112: Negative or not required by law. The above report was generated using voice recognition software. It may contain grammatical, syntax o r spelling errors. Electronically signed by: Gil Morrison M.D. 08/24/2023 1:45 PM
[2023-08-24 14:40] LABS: Appearance Urine Clear (Clear); Bacteria Urine Automated None Seen (None Seen); Bilirubin Urine Negative (Negative); Blood Urine 1+ (Negative); Color Urine Yellow; Glucose Urine UA Negative (Negative); Ketones Urine Negative (Negative); Leukocyte Esterase Urine Negative (Negative); Nitrite Urine Negative (Negative); Protein Urine Negative (Negative); Specific Gravity Urine 1.013 (1.000-1.030); Urobilinogen Urine Negative (Negative); WBC Urine Automated 0-5 /hpf (0-5)
--- NOTE | 2023-08-24 15:56 | History & Physical Report ---
Date of Service August 24, 2023 Assessment & Plan (1) Diverticulitis: Plan: Abdominal pain and diarrhea x 2 weeks She was seen in the OR ED on 08/13, and discharged on ciprofloxacin and metronidazole x 7 days; she reports taking the full course She came in today for black, liquid-y diarrhea (which was new for her) She does note that she recently started Pepto-Bismol, as the antibiotics were giving her severe indigestion/GI discomfort No leukocytosis; afebrile A/P CT revealed mild acute diverticulitis of the distal descending colon, with slight improvement from 08/13; no bowel obstruction, abscess, or pneumoperitoneum Stool cultures/C. difficile ordered, pending Do not believe this is a complete failure of outpatient antibiotics, as patient has been improving Rocephin 2000 mg IV q24h Metronidazole 500 mg IV q8h Keep n.p.o. for now except for p.o. medications/ice chips Acetaminophen as needed for pain A.m. CBC, BMP, mag (2) Lower GI bleed: Plan: Potential; unclear if this is a true lower GI bleed, in the setting of improving diverticulitis and recent Pepto-Bismol use Hgb 13.6 on arrival Will trend H&H x 1 Protonix 40mg IV x 1 (3) Hematuria: Plan: UA with +1 blood Hold chemical DVT PPx for now Monitor H&H (as above) (4) HTN (hypertension): Plan: Patient reports she has not been taking her losartan since starting abx on 08/13 Will plan to restart losartan 100 mg on 08/24 (5) Hypothyroidism: Plan: Patient reports she has not been taking her levothyroxine (for at least the past 10 days) TSH elevated at 26.0 on arrival Restart levothyroxine Plan [facility]: [facility] Keep NPO for now except for p.o. medications / sips and chips VTE PPx: SCDs (hold chemical DVT PPx in the setting of hematuria) History of Present Illness Chief Complaint: Diarrhea Primary Care Provider: Shahana Arenas PA-C Martha is an 82-year-old female with PMH of diverticulitis, HTN, PVD, and osteopenia. She presented for abdominal pain, hematuria, and D that has been ongoing. Patient was seen on 08/13 for similar symptoms, and recently finished a course of ciprofloxacin + metronidazole x 7 days for her diverticulitis, but notes little improvement. Patient lives with her (Galindo) who is at the bedside and provides additional history. He decided to come in after she had black liquidy diarrhea this morning, which is different from her regular diarrhea that has been ongoing x 1 week. Patient did complete her course of antibiotics, but noted that it "did not agree" with her stomach, and that she had a lots of indigestion and throat pain when taking them. The pills were not coated, and she had to mix it with applesauce in order to take them. She denies nausea/vomiting of any medications. She does note that she started taking Pepto-Bismol for indigestion, as it reported on the bottle that it would help with her diarrhea. She denies bright red blood in her diarrhea, but reports it has been black in color; she describes it as a "coffee ground" color. She also notes that she has had a loss of bowel continence, which is new for her. She has been having ongoing issues with loss of urinary continence. Seen in July, and had a pessary placed, but it did not work. Patient then had a UTI 1 to 2 weeks later at the end of July, for which she was hospitalized. Patient notes that she wiped after urinating today, and noted some blood on the toilet paper; unsure if hematuria. No prior history of diverticulitis besides this episode. Patient reports she has not been taking her regular medications since starting her antibiotics on 08/13. She has not been taking any additional medications for pain. Patient manages her own medications at home. Per , she has not been eating much the past few days. She endorses 0/10 LLQ pain at present, but does note tenderness with palpation. She is unsure of her listed PCN allergy, but reports she has done well on Rocephin in the past. She denies any recent smoking, tobacco use, or alcohol use. Patient is hypertensive at 179/83 at time of admission; vitals otherwise stable. ED course: NSS 1000 mL IV ROS: Patient endorses dizziness, lighteadedness, balance issues, intermittent HAs (ongoing), urinary incontinence (ongoing), abdominal pain, increased urinary frequency, suprapubic pain, diarrhea, and black diarrhea x 1 episode. Patient denies fever, chills, nightsweats, chest pain, chest palpitations, cough, SOB, abdominal pain, burning with urination, nausea, vomiting, saddle anesthesia, or N/T/pain in the legs. Allergies Allergy/AdvReac Type Severity Reaction Status Date / Time shellfish derived Allergy Mild N/V SEVERE Verified 08/24/23 15:19 Penicillins Allergy Unknown ? REACTION Verified 08/24/23 15:19 Sulfa (Sulfonamide Allergy Unknown ? REACTION Verified 08/24/23 15:19 Antibiotics) donepezil AdvReac Intermediate DIARRHEA Verified 08/24/23 15:19 codeine AdvReac Mild N/V Verified 08/24/23 15:19 Home Medications Medication Instructions Recorded Confirmed Type cholecalciferol (vitamin D3) 25 1,000 unit PO QAM 02/10/18 08/24/23 History mcg (1,000 unit) tablet cyanocobalamin (vitamin B-12) 500 500 mcg PO QAM 02/10/18 08/24/23 History mcg tablet bromelains 500 mg tablet 0 mg PO DAILY 12/14/18 08/24/23 History docusate sodium 100 mg capsule 100 mg PO DAILY PRN Constipation 08/13/20 08/24/23 History (Colace) ascorbic acid (vitamin C) 500 mg 1,000 mg PO DAILY sickness 09/18/20 08/24/23 History tablet (Vitamin C) levothyroxine 100 mcg tablet 100 mcg PO QAM #90 tabs 02/11/23 08/24/23 Rx losartan 100 mg tablet 100 mg PO QAM #90 tabs 05/07/23 08/24/23 Rx pantoprazole 20 mg tablet,delayed 20 mg PO QAM #90 tabs 05/07/23 08/24/23 Rx release estradiol 0.01% (0.1 mg/gram) 1 g vaginal .COMPLEX #42.5 grams 07/08/23 08/24/23 Rx vaginal cream (Estrace) PURE BRAINPOWER 1 cap PO QAM 08/03/23 08/24/23 History calcium carbonate 500 mg-vitamin 1 tab PO DAILY 08/03/23 08/24/23 History D3 200 unit-vitamin K2 90 mcg tablet inulin 2.5 gram chewable tablet 0 g PO QPM 08/03/23 08/24/23 History naproxen sodium 220 mg capsule 220 mg PO Q8H PRN pain 08/03/23 08/24/23 History (Aleve) metaxalone 800 mg tablet 400 mg (1/2 x 800 mg) PO BID PRN 08/05/23 08/24/23 Rx muscle pain #10 tabs simvastatin 20 mg tablet 0 mg PO HS 08/24/23 08/24/23 History Past Med/Surg History Medical History (Updated 08/24/23 @ 19:29 by Yoshi Alamo PA-C) Hypothyroidism History of CVA (cerebrovascular accident) (~2017) Left knee pain PVD (peripheral vascular disease) Osteoarthritis Urinary incontinence GERD (gastroesophageal reflux disease) Migraine Cardiac murmur very faint, since childhood Hyperlipidemia Asthma no inhalers now; takes Bromelain HTN (hypertension) Surgical History History of left knee replacement History of open reduction and internal fixation (ORIF) 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) History of cataract surgery b/l History of dilatation and curettage x3 History of total left knee replacement (TKR) History of colonoscopy History of bladder surgery bladder tack x2 History of hysterectomy with bilateral oophorectomy History of tooth extraction all teeth History of appendectomy History of tonsillectomy and adenoidectomy History of endoscopic sinus surgery removal of nasal polyps S/P appendectomy Family History Son Family history of diabetes mellitus Mother Hypertension Myocardial infarction Father Hypertension Denies family history of Ovarian cancer Prostate cancer Breast cancer Lung cancer Colorectal cancer Social History Smoking Status: Never smoker Second Hand Exposure: No; Do You Dip or Chew Tobacco: No; Hx Alcohol Use: No Hx Substance Use: No Preferred Language: Kyrgyz Communication Ability: Effective Visual Impairment: Limited 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: Normal 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 Beliefs That Will Affect Care: None marital status: Current Living Situation: Spouse Current Living Situation Comment: Lives with Clay Dove current occupational status: retired How many Children do You have: 2 Other Information That Helps Us Care for You: No Feels Safe at Home: Yes Safety Concerns: Feels Safe At This Time Childhood Exposure to Second-Hand Smoke: No caffeine: Yes (coffee 1 cup daily ) Dental Care, Regularly: No Physical Activity Frequency: 3-4 Times per Week Seatbelt Use: always Sunscreen Use: Yes Assistive Devices: Cane, Glasses, Hospital Bed and Walker Review of Systems Review of Systems: See HPI above Physical Exam Physical Exam: General: no acute distress; pleasant affect; non-toxic appearing; well- nourished; cooperative HEENT: normocephalic, atraumatic; no scleral icterus; PERRLA w/ EOMs intact; moist mucus membrane; vision and hearing grossly intact Neck: supple; no lymphadenopathy; trachea midline Skin: warm, dry without signs of tenting; no cyanosis; no rashes, bruising, lesions, or erythema noted CV: chest wall NTP; RRR; S1/S2 normal; no murmurs/rubs/gallops; pulses intact and symmetric at radial, DP, and PT Lungs: no acute respiratory distress; symmetrical chest wall expansion; clear breath sounds across all lung shelton w/o adventitious sounds; no wheezing ABD: Soft; both the left lower quadrant and the suprapubic region are not TTP; BS present; no rebound/guarding; no distention; no signs of rashes, bruising, or active bleeding on the abdomen or flanks MSK: no tics or fasciculations; no edema noted in the LEs b/l, nonerythematous Neuro: A&Ox3; slow to respond to some questioning; fluent speech; no focal deficits; sensation intact, symmetric in the LEs b/l Results & Data Results & Data Vital Signs (Past 12 Hours) Vital Signs Temp Pulse Resp BP Pulse Ox 08/24/23 12:50 61 08/24/23 11:11 36.8 C 74 16 179/83 H 97 Laboratory Results Abnormal lab results 08/24/23 08/24/23 Range/Units 11:41 14:00 [place] # (Auto) 0.63 H (0.11-0.59) K/uL Urine Blood 1+ H (Negative) Urine RBC (Auto) 3-5 H (0-2) /hpf U Hyaline Cast (Auto) 3-5 H (0-2) /lpf U Epithel Cells (Auto) 3-5 H (0-2) /hpf Diagnostic Findings Abdomen/Pelvis CT 08/24/23 12:[address] WITH IV CONTRAST CT DOSE: 705.52 mGy.cm HISTORY: Acute left lower quadrant abdominal pain llq abd pain worsening TECHNIQUE: Multiaxial CT images of the abdomen and pelvis were performed following the IV administration of 94 cc of Optiray, A dose lowering technique was utilized adhering to the principles of ALARA. COMPARISON STUDY: 08/14/2023 FINDINGS: Coronary arterial calcifications. Mild right hemidiaphragmatic elevation. Lung bases are generally clear. No free air. Unremarkable spleen, pancreas and gallbladder. Unchanged adrenal gland thickening suggestive of hyperplasia. There is nonspecific heterogeneity is in the left hepatic lobe likely representing focal fatty infiltration. There is patency of the hepatic and portal veins. There are a few cysts noted within the kidneys. Mild bilateral pelvocaliectasis may be secondary to the urinary bladder distention. There is symmetric enhancement of the kidneys. Hysterectomy. Extensive atherosclerosis of the abdominal aorta with mild infrarenal ectasia measuring up to 2.2 cm. There is no lymphadenopathy. Mild nonspecific distal esophageal wall thickening with tiny hiatal hernia. No bowel obstruction. Colonic diverticulosis with subtle acute diverticulitis of the distal descending colon which has improved from prior. There is no abscess. The appendix is reportedly surgically absent. Unremarkable soft tissues. No acute fracture identified. IMPRESSION: 1. Mild acute diverticulitis of the distal descending colon, slightly improved compared to the study from 08/14/2023. 2. No bowel obstruction, abscess or pneumoperitoneum. 3. Additional findings as above. ACT 112: Negative or not required by law. The above report was generated using voice recognition software. It may contain grammatical, syntax or spelling errors. Electronically signed by: Gil Morrison M.D. 08/24/2023 1:45 PM Code Status & VTE Plan Code Status DNR/DNI (discussed with patient and patient's at the bedside) VTE Prophylaxis Plan VTE Prophylaxis will be ordered: Yes Supervising Physician Co-Signing Physician Notes I personally saw and examined the patient. I independently reviewed the labs, EKG, imaging, problem list, medication list, past medical history and family history. I verified all merida points and agree with Yoshi Alamo PA-C with the following exceptions and/or additions: 82 year old female presents to the ER with with diarrhea and abdominal pain following recent diagnosis of diverticulitis. O/E HS RRR, no murmurs, Chest CTAB, suprapubic pain on palpation without guarding or rebound tenderness A/P Diverticulitis - improving per patient symptoms and imaging but given ongoing symptoms and only 7 days of antibiotics recommend NPO overnight, ceftriaxone +metronidazole Diarrhea - ?antibiotic associated vs. from diverticulitis, stool and c. diff PCR Hypothyroidism - likely currently elevated as not taking her regular medications, restart her usual levothyroxine PG Care Time/CCT Total # of Minutes Spent Total Time Spent with Patient: Total time spent is greater than 50% in coordination of care (as documented) at patient's floor/unit and/or counseling patient: Coding [place] [address] INT INP/OBS CARE 2/55MIN Patient Type Established Medical Decision Making Moderate Complexity Diagnoses Diverticulitis K57.92 Lower GI bleed K92.2 Hematuria R31.9 HTN (hypertension) I10 Hypothyroidism E03.9
[2023-08-24 16:57] LABS: Hematocrit (blood only) 41.7 % (37.0-47.0); Hemoglobin 13.5 g/dl (12.0-16.0)
[2023-08-24 17:01] LABS: Magnesium 2.2 mg/dl (1.7-2.4)
[2023-08-24 17:17] LABS: Thyroid Stimulating Hormone 26.199 uIu/ml (0.300-4.500)
[2023-08-24] MEDS: metroNIDAZOLE 500 MG/100 ML BAG IV STA (17:35)
[2023-08-24] MEDS: PANTOprazole 40 MG in SYRINGE 0 ML IV ONE (17:35)
[2023-08-24] MEDS: Patient's HEIGHT &/or WEIGHT Needed STA (17:37)
[2023-08-24] MEDS: cefTRIAXone SODIUM 2,000 MG in DEXTROSE 5 % MINI-B 50 ML IV STA (17:40)
[2023-08-24 17:52] LABS: T4 Free Thyroxine 0.53 ng/dl (0.61-1.60)
[2023-08-24] MEDS: PLASMA-LYTE A 1,000 ML IV SCH (18:31)
[2023-08-24] MEDS ORDERED: DOCUSATE SODIUM 100 MG CAP PO PRN (19:12)
[2023-08-24] MEDS ORDERED: METAXALONE 800 MG TABLET PO PRN (19:12)
[2023-08-24] MEDS ORDERED: MELATONIN 3 MG TAB PO PRN (19:12)
[2023-08-24] MEDS ORDERED: ONDANSETRON INJ 2 MG/ML 2 ML VIAL IV PRN (19:12)
[2023-08-24] MEDS: SIMVASTATIN 20 MG TAB PO SCH (21:02)
[2023-08-24] MEDS: LOSARTAN POTASSIUM 50 MG TAB PO STA (21:02)
[2023-08-24] MEDS: ACETAMINOPHEN 325 MG TAB PO PRN (22:47)
[2023-08-25] MEDS: metroNIDAZOLE 500 MG/100 ML BAG IV SCH (00:37)
[2023-08-25] MEDS: LEVOTHYROXINE SODIUM 100 MCG TABLET PO SCH (06:00)
[2023-08-25 07:50] LABS: Basophils # (auto) 0.11 K/uL (0.00-0.20); Basophils % (auto) 1.5 %; Eosinophils # (auto) 0.43 K/uL (0.00-0.50); Eosinophils % (auto) 5.9 %; Hemoglobin 12.4 g/dl (12.0-16.0); Immature Granulocytes # (auto) 0.04 K/uL (0.01-0.20); Immature Granulocytes % (auto) 0.5 %; Lymphocytes # (auto) 1.15 K/uL (1.20-3.40); Lymphocytes % (auto) 15.7 %; Mean Corpuscular Hemoglobin 29.6 pg (25.0-34.0); Mean Corpuscular Hgb Conc 32.6 g/dL (32.0-36.0); Mean Corpuscular Volume 90.7 fL (80.0-100.0); Mean Platelet Volume 9.5 fL (9.4-12.4); Monocytes # (auto) 0.82 K/uL (0.11-0.59); Monocytes % (auto) 11.2 %; Neutrophils # (auto) 4.77 K/uL (1.40-6.50); Neutrophils % (auto) 65.2 %; Platelet Count 287 K/uL (130-400); RDW Coefficient of Variation 12.8 % (11.5-14.5); RDW Standard Deviation 41.9 fL (36.4-46.3); Red Blood Count 4.19 M/uL (4.20-5.40); White Blood Count 7.32 K/ul (4.8-10.8)
[2023-08-25] MEDS: LOSARTAN POTASSIUM 50 MG TAB PO SCH (07:56)
[2023-08-25] MEDS: PANTOprazole 40 MG TAB PO SCH (07:56)
[2023-08-25 08:09] LABS: BUN Creatinine Ratio 10.4 (10-20); Calcium 8.9 mg/dl (8.6-10.3); Creatinine Clr Calc Pharmacy 48.5 ml/min; Est GFR (African American) 93.6 ml/min; Est GFR (Non-African American) 80.7 ml/min; Magnesium 2.1 mg/dl (1.7-2.4); Potassium 3.4 mmol/L (3.5-5.1)
[2023-08-25] MEDS: POTASSIUM CHLORIDE CRTAB 20 MEQ TABCR PO STA (16:34)
--- NOTE | 2023-08-25 16:49 | Infectious Disease Consult ---
Date of Consultation August 25, 2023 Assessment & Plan (1) Diarrhea: (2) Lower GI bleed: (3) Diverticulitis: (4) Hypothyroidism: Plan 82yo F with h/o CVA, hypothyroidism, PVD, osteopenia, urinary incontinence, HTN, HLD, recent admission 07/28-07/30 with E coli UTI and stroke-like symptoms who presented on 08/23 with abdominal pain, hematuria, and diarrhea ongoing for over 1 week. She was seen in the ED on 08/13 for abdominal/flank pain and CTAP at that time showed acute diverticulitis of distal descending colon. She was given a course of cipro/flagyl x 7d for diverticulitis, however she has had little improvement. 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 On admission, she was afebrile, vss. WBC wnl. Cr and LFT wnl. UA negative. CTAP with IV showed mild acute diverticulitis of the distal descending colon, slightly improved compared to 08/13, no obstruction or abscess. She has been started on CTX/flagyl. ID consulted 08/24 for assistance. Diverticulitis appears to be improving on imaging. Agree with also checking for infectious causes, C diff and Stool cx are ordered. Since duration of therapy f or diverticulitis would preferably be 10-14 days, I agree with CTX/flagyl and extension of her abx course. She also reported black stools which raises c/f GI bleed, which in itself can also cause diarrhea. Would have GI involved as well. # Diarrhea # Diverticulitis of descending colon - f/u C diff and stool cx - continue on CTX and flagyl - consider GI consult - will see patient with telepresenter tomorrow ID will continue to follow. If questions or concerns, contact Infectious Disease Call Center . Za Garg MD [facility], Division of Infectious Diseases [facility]: [phone] Consultation Information This patient recommendation is based on a telemedicine consult request which was completed asynchronously through chart review and information provided by the primary physician. The patient was not seen or examined today. The evaluation is consultative in nature and all patient care and treatment decisions can either be accepted or rejected by the patient's primary hospital-based treating physician using their own independent medical judgment for their patient. Rabies Inspector contact information: Please call [facility] Call Center . (Phone Number For Physician Use Only) Time Spent Reviewing Chart: 31+ minutes History of Present Illness Reason for Consultation: ?diverticulitis, normal labs Attending Physician: Erik Hatfield History of Present Illness 82yo F with h/o CVA, hypothyroidism, PVD, osteopenia, urinary incontinence, HTN, HLD, recent admission 07/28-07/30 with E coli UTI and stroke-like symptoms who presented on 08/23 with abdominal pain, hematuria, and diarrhea ongoing for over 1 week. She was seen in the ED on 08/13 for abdominal/flank pain and CTAP at that time showed acute diverticulitis of distal descending colon. She was given a course of cipro/flagyl x 7d for diverticulitis, however she has had little improvement. She had black liquidy stools on the morning of admission, which is different from her regular diarrhea. She has finished her abx, but had felt indigestion related to it. She notes bowel incontinence, has been using Pepto- Bismol, and has had decreased PO intake. On admission, she was afebrile, vss. WBC wnl. Cr and LFT wnl. UA negative. CTAP with IV showed mild acute diverticulitis of the distal descending colon, slightly improved compared to 08/13, no obstruction or abscess. She has been started on CTX/flagyl. ID consulted 08/24 for assistance. Allergies Allergy/AdvReac Type Severity Reaction Status Date / Time shellfish derived Allergy Mild N/V SEVERE Verified 08/24/23 15:19 Penicillins Allergy Unknown ? REACTION Verified 08/24/23 15:19 Sulfa (Sulfonamide Allergy Unknown ? REACTION Verified 08/24/23 15:19 Antibiotics) donepezil AdvReac Intermediate DIARRHEA Verified 08/24/23 15:19 codeine AdvReac Mild N/V Verified 08/24/23 15:19 Home Medications Medication Instructions Recorded Confirmed Type cholecalciferol (vitamin D3) 25 1,000 unit PO QAM 02/10/18 08/24/23 History mcg (1,000 unit) tablet cyanocobalamin (vitamin B-12) 500 500 mcg PO QAM 02/10/18 08/24/23 History mcg tablet bromelains 500 mg tablet 0 mg PO DAILY 12/14/18 08/24/23 History docusate sodium 100 mg capsule 100 mg PO DAILY PRN Constipation 08/13/20 08/24/23 History (Colace) ascorbic acid (vitamin C) 500 mg 1,000 mg PO DAILY sickness 09/18/20 08/24/23 History tablet (Vitamin C) levothyroxine 100 mcg tablet 100 mcg PO QAM #90 tabs 02/11/23 08/24/23 Rx losartan 100 mg tablet 100 mg PO QAM #90 tabs 05/07/23 08/24/23 Rx pantoprazole 20 mg tablet,delayed 20 mg PO QAM #90 tabs 05/07/23 08/24/23 Rx release estradiol 0.01% (0.1 mg/gram) 1 g vaginal .COMPLEX #42.5 grams 07/08/23 08/24/23 Rx vaginal cream (Estrace) PURE BRAINPOWER 1 cap PO QAM 08/03/23 08/24/23 History calcium carbonate 500 mg-vitamin 1 tab PO DAILY 08/03/23 08/24/23 History D3 200 unit-vitamin K2 90 mcg tablet inulin 2.5 gram chewable tablet 0 g PO QPM 08/03/23 08/24/23 History naproxen sodium 220 mg capsule 220 mg PO Q8H PRN pain 08/03/23 08/24/23 History (Aleve) metaxalone 800 mg tablet 400 mg (1/2 x 800 mg) PO BID PRN 08/05/23 08/24/23 Rx muscle pain #10 tabs simvastatin 20 mg tablet 0 mg PO HS 08/24/23 08/24/23 History Patient History Medical History (Updated 08/24/23 @ 19:29 by Yoshi Alamo PA-C) Hypothyroidism History of CVA (cerebrovascular accident) (~2017) Left knee pain PVD (peripheral vascular disease) Osteoarthritis Urinary incontinence GERD (gastroesophageal reflux disease) Migraine Cardiac murmur very faint, since childhood Hyperlipidemia Asthma no inhalers now; takes Bromelain HTN (hypertension) Surgical History History of left knee replacement History of open reduction and internal fixation (ORIF) 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) History of cataract surgery b/l History of dilatation and curettage x3 History of total left knee replacement (TKR) History of colonoscopy History of bladder surgery bladder tack x2 History of hysterectomy with bilateral oophorectomy History of tooth extraction all teeth History of appendectomy History of tonsillectomy and adenoidectomy History of endoscopic sinus surgery removal of nasal polyps S/P appendectomy Family History Son Family history of diabetes mellitus Mother Hypertension Myocardial infarction Father Hypertension Denies family history of Ovarian cancer Prostate cancer Breast cancer Lung cancer Colorectal cancer Social History Smoking Status: Never smoker Second Hand Exposure: No; Do You Dip or Chew Tobacco: No; Hx Alcohol Use: No Hx Substance Use: No Preferred Language: Uzbek Communication Ability: Effective Visual Impairment: Limited 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: Normal 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 Beliefs That Will Affect Care: None marital status: Current Living Situation: Spouse Current Living Situation Comment: Lives with Clay Dove current occupational status: retired How many Children do You have: 2 Other Information That Helps Us Care for You: No Feels Safe at Home: Yes Safety Concerns: Feels Safe At This Time Childhood Exposure to Second-Hand Smoke: No caffeine: Yes (coffee 1 cup daily ) Dental Care, Regularly: No Physical Activity Frequency: 3-4 Times per Week Seatbelt Use: always Sunscreen Use: Yes Assistive Devices: Cane, Glasses, Hospital Bed, Stair Lift and Walker Results & Data Vital Signs (Past 12 Hours) Vital Signs Temp Pulse Resp BP Pulse Ox O2 Del Method 08/25/23 14:57 37.1 C 68 16 168/76 H 97 Room Air 08/25/23 07:50 36.6 C 66 18 167/65 H 96 Room Air Laboratory Results Labs reviewed Diagnostic Findings Imaging reviewed (1) Diarrhea Diarrhea type: unspecified type Qualified Code(s): R19.7 - Diarrhea, unspecified
[2023-08-25] MEDS: cefTRIAXone SODIUM 2,000 MG in DEXTROSE 5 % MINI-B 50 ML IV SCH (17:38)
[2023-08-25 19:28] LABS: Adenovirus F 40/41 PCR Not Detected (NotDetected); Astrovirus PCR Not Detected (NotDetected); Campylobacter PCR Not Detected (NotDetected); Cryptosporidium PCR Not Detected (NotDetected); Cyclospora cayetanensis PCR Not Detected (NotDetected); Entamoeba histolytica PCR Not Detected (NotDetected); Enteroaggregative E.coli(EAEC) Not Detected (NotDetected); Enteropathogenic E.coli (EPEC) Not Detected (NotDetected); Enterotoxigenic E.coli (ETEC) Not Detected (NotDetected); Giardia lamblia PCR Not Detected (NotDetected); Norovirus GI/GII PCR Not Detected (NotDetected); Plesiomonas shigelloides PCR Not Detected (NotDetected); Rotavirus A PCR Not Detected (NotDetected); Salmonella PCR Not Detected (NotDetected); Sapovirus PCR Not Detected (NotDetected); Shiga-like Toxin E.coli (STEC) Not Detected (NotDetected); Shigella/Enteroinvasive E.coli Not Detected (NotDetected); Vibrio cholerae PCR Not Detected (NotDetected); Vibrio species PCR Not Detected (NotDetected); Yersinia enterocolitica PCR Not Detected (NotDetected)
--- NOTE | 2023-08-25 22:59 | Hospitalist Progress Note ---
Date of Service August 25, 2023 Assessment & Plan (1) Diverticulitis: Plan: Abdominal pain and diarrhea x 2 weeks [facility] and discharged on ciprofloxacin and metronidazole x 7 days; she reports taking the full course She came in today for black, liquid-y diarrhea (which was new for her) She does note that she recently started Pepto-Bismol, as the antibiotics were giving her severe indigestion/GI discomfort No leukocytosis; afebrile A/P CT revealed mild acute diverticulitis of the distal descending colon, with slight improvement from 08/13; no bowel obstruction, abscess, or pneumoperitoneum Stool cultures/C. difficile ordered, pending Do not believe this is a complete failure of outpatient antibiotics, as patient has been improving Rocephin 2000 mg IV q24h Metronidazole 500 mg IV q8h Will place on a clear liquid diet and advance as tolerated. will consult ID for assistance. Patient clinically appears to be doing better. (2) Lower GI bleed: Plan: Potential; unclear if this is a true lower GI bleed, in the setting of improving diverticulitis and recent Pepto-Bismol use Hgb 13.6 on arrival Will trend H&H x 1 Protonix 40mg IV x 1 (3) Hematuria: Plan: UA with +1 blood Hold chemical DVT PPx for now Monitor H&H (as above) (4) HTN (hypertension): Plan: Patient reports she has not been taking her losartan since starting abx on 08/13 Will plan to restart losartan 100 mg on 08/24 (5) Hypothyroidism: Plan: Patient reports she has not been taking her levothyroxine (for at least the past 10 days) TSH elevated at 26.0 on arrival Restart levothyroxine Plan Disposition: Admit to [facility] DNR/DNI Admission and Anticipated Discharge Date Admission Date: August 24, 2023 Subjective Patient reports no new symptoms. Review of Systems Review of Systems: All systems reviewed & are unremarkable except as noted in HPI & below Physical Exam Physical Exam: General: no acute distress; well-nourished; cooperative HEENT: normocephalic, atraumatic; Skin: warm, dry without signs of tenting; no cyanosis; no rashes, bruising, les ions, or erythema noted CV: no respiratory distress, heart: ABD: Soft; Neuro: A&Ox3; Results & Data Results & Data Vital Signs (Past 12 Hours) Vital Signs Temp Pulse Resp BP Pulse Ox O2 Del Method 08/25/23 20:22 36.8 C 58 L 16 159/83 H 96 Room Air 08/25/23 14:57 37.1 C 68 16 168/76 H 97 Room Air PG Care Time/CCT Total # of Minutes Spent Total Time Spent with Patient: Total time spent is greater than 50% in coordination of care (as documented) at patient's floor/unit and/or counseling patient: Coding Level of Care Code 35222 SUB INP/OBS CARE 2/35MIN Diagnoses Diverticulitis K57.92 Lower GI bleed K92.2 Hematuria R31.9 HTN (hypertension) I10 Hypothyroidism E03.9
[2023-08-26 07:59] LABS: Basophils # (auto) 0.11 K/uL (0.00-0.20); Basophils % (auto) 1.5 %; Eosinophils # (auto) 0.48 K/uL (0.00-0.50); Eosinophils % (auto) 6.6 %; Hematocrit (blood only) 37.9 % (37.0-47.0); Hemoglobin 12.4 g/dl (12.0-16.0); Immature Granulocytes # (auto) 0.03 K/uL (0.01-0.20); Immature Granulocytes % (auto) 0.4 %; Mean Corpuscular Hemoglobin 29.6 pg (25.0-34.0); Mean Corpuscular Hgb Conc 32.7 g/dL (32.0-36.0); Mean Corpuscular Volume 90.5 fL (80.0-100.0); Mean Platelet Volume 9.7 fL (9.4-12.4); Monocytes # (auto) 0.66 K/uL (0.11-0.59); Monocytes % (auto) 9.1 %; Neutrophils # (auto) 4.64 K/uL (1.40-6.50); Neutrophils % (auto) 64.4 %; Platelet Count 319 K/uL (130-400); RDW Coefficient of Variation 12.8 % (11.5-14.5); RDW Standard Deviation 42.4 fL (36.4-46.3); Red Blood Count 4.19 M/uL (4.20-5.40); White Blood Count 7.22 K/ul (4.8-10.8)
[2023-08-26 08:21] LABS: Anion Gap 7 (3-11); BUN Creatinine Ratio 7.7 (10-20); Blood Urea Nitrogen 5 mg/dl (6-23); C Reactive Protein < 0.50 mg/dl (0-0.5); Calcium 9.2 mg/dl (8.6-10.3); Carbon Dioxide 27 mmol/L (21-32); Chloride 106 mmol/L (98-107); Est GFR (African American) 94.5 ml/min; Est GFR (Non-African American) 81.5 ml/min; Glucose 112 mg/dl (70-99(Fasting)); Potassium 3.9 mmol/L (3.5-5.1); Sodium 140 mmol/L (136-145)
[2023-08-26 11:20] LABS: Ferritin 86.2 ng/ml (8-388)
--- NOTE | 2023-08-26 13:10 | Infectious Disease Progress Nt ---
Date of Service August 26, 2023 Assessment & Plan (1) Diarrhea: (2) Lower GI bleed: (3) Diverticulitis: (4) Hypothyroidism: Plan 82yo F with h/o CVA, hypothyroidism, PVD, osteopenia, urinary incontinence, HTN, HLD, recent admission 07/28-07/30 with E coli UTI and stroke-like symptoms who presented on 08/23 with abdominal pain, hematuria, and diarrhea ongoing for over 1 week. She was seen in the ED on 08/13 for abdominal/flank pain and CTAP at that time showed acute diverticulitis of distal descending colon. She was given a course of cipro/flagyl x 7d for diverticulitis, however she has had little improvement. On admission, she was afebrile, vss. WBC wnl. Cr and LFT wnl. UA negative. CTAP with IV showed mild acute diverticulitis of the distal descending colon, slightly improved compared to 08/13, no obstruction or abscess. She has been started on CTX/flagyl. ID consulted 08/24 for assistance. Stool PCR negative. Denies watery stools, but rather reports black coffee-ground stools. CT has diverticulitis which appears to be improving on imaging. Duration of abx can be 10-14d, she's only had 7 so will favor another week for her current diverticulitis episode. Continue on CTX/flagyl. GI involvement for her black stools. # Diverticulitis of descending colon improving # Coffee-ground stools - continue on CTX and flagyl - f/u GI consult ID will continue to follow. If questions or concerns, contact Infectious Disease Call Center . Za Garg MD [facility], Division of Infectious Diseases [facility]: [phone] Admission and Anticipated Discharge Date Admission Date: August 24, 2023 Subjective Subsequent visit was provided via telemedicine using two-way real-time interactive telecommunication between the patient and the telemedicine provider. For the duration of the visit, the provider was performing the assessment from a different facility than the patient. This includesuse of bluetooth stethoscope forauscultationperformed by the telepresenter that the telemedicine provider can hear if described in the physical exam. Rn Transitional contact information: Please call [facility] Call Center . (Phone Number For Physician Use Only) After establishing a telemedicine visit, patient was: Patient was verified with two unique identifiers, Patient/authorized rep acknowledged consent and understanding and Gave permission to continue telehealth session Time Spent with Patient: Subsequent => 55 min Patient seen via video. She is not sure when she finished her abx at home, but says it was completed after a week. She denies having watery stools, but rather says she has stools like coffee ground, not a lot. When asked how often, she says "several times". Abdomen does not hurt. Physical Exam Physical Exam: General: Awake, alert, no acute distress HEENT: NC/AT, EOMI, mmm Neck: supple Lungs: respirations non-labored Heart: nl peripheral perfusion Abdomen: soft, nontender Ext: no LE edema Skin: no rash Results & Data Vital Signs (Past 12 Hours) Vital Signs Temp Pulse BP Pulse Ox O2 Del Method 08/26/23 09:29 36.7 C 64 155/84 H 98 Room Air Laboratory Results Labs reviewed Diagnostic Findings Imaging reviewed (1) Diarrhea Diarrhea type: unspecified type Qualified Code(s): R19.7 - Diarrhea, unspecified
--- NOTE | 2023-08-26 13:56 | Gastrointestinal Consultation ---
Date of Consultation August 26, 2023 Assessment & Plan (1) Diverticulitis: -Low residue diet -Avoid constipation -Continue antibiotics while hospitalized and on discharge for a treatment course of 10 days (2) Dark stools: +history of Pepto Bismol use. No ongoing issue. H/H normal at 12.4/37.9. BUN within normal limits. No evidence of active GI bleeding. Continue to monitor. Supervising Physician Co-Signing Physician Notes Agree with MONA Crenshaw as above Interviewed and examined patient and agree with above Abd: Soft, tender, ND, +BS Continue current therapy and supportive care History of Present Illness Reason for Consultation: Diverticulitis, melena Attending Physician: Erik Hatfield History of Present Illness Patient is an 82 yo female who recently was diagnosed with diverticulitis as an outpatient and failed po therapy. She is currently admitted on IV Ceftriaxone & IV Flagyl. She notes improvement of abdominal pain. She notes a darker stool, but has an H/H of 12.4/37.9. BUN 5. She has used Pepto Bismol. She notes she was hungry and ate her first solid meal today. She has tolerated that well. She denies constipation. She has never had diverticulitis before. She cannot recall her last colonoscopy. No pertinent family history. She takes a PPI at home. She has loose stool but C diff & stool PCR negative. Allergies Allergy/AdvReac Type Severity Reaction Status Date / Time shellfish derived Allergy Mild N/V SEVERE Verified 08/24/23 15:19 Penicillins Allergy Unknown ? REACTION Verified 08/24/23 15:19 Sulfa (Sulfonamide Allergy Unknown ? REACTION Verified 08/24/23 15:19 Antibiotics) donepezil AdvReac Intermediate DIARRHEA Verified 08/24/23 15:19 codeine AdvReac Mild N/V Verified 08/24/23 15:19 Home Medications Medication Instructions Recorded Confirmed Type cholecalciferol (vitamin D3) 25 1,000 unit PO QAM 02/10/18 08/24/23 History mcg (1,000 unit) tablet cyanocobalamin (vitamin B-12) 500 500 mcg PO QAM 02/10/18 08/24/23 History mcg tablet bromelains 500 mg tablet 0 mg PO DAILY 12/14/18 08/24/23 History docusate sodium 100 mg capsule 100 mg PO DAILY PRN Constipation 08/13/20 08/24/23 History (Colace) ascorbic acid (vitamin C) 500 mg 1,000 mg PO DAILY sickness 09/18/20 08/24/23 History tablet (Vitamin C) levothyroxine 100 mcg tablet 100 mcg PO QAM #90 tabs 02/11/23 08/24/23 Rx losartan 100 mg tablet 100 mg PO QAM #90 tabs 05/07/23 08/24/23 Rx pantoprazole 20 mg tablet,delayed 20 mg PO QAM #90 tabs 05/07/23 08/24/23 Rx release estradiol 0.01% (0.1 mg/gram) 1 g vaginal .COMPLEX #42.5 grams 07/08/23 08/24/23 Rx vaginal cream (Estrace) PURE BRAINPOWER 1 cap PO QAM 08/03/23 08/24/23 History calcium carbonate 500 mg-vitamin 1 tab PO DAILY 08/03/23 08/24/23 History D3 200 unit-vitamin K2 90 mcg tablet inulin 2.5 gram chewable tablet 0 g PO QPM 08/03/23 08/24/23 History naproxen sodium 220 mg capsule 220 mg PO Q8H PRN pain 08/03/23 08/24/23 History (Aleve) metaxalone 800 mg tablet 400 mg (1/2 x 800 mg) PO BID PRN 08/05/23 08/24/23 Rx muscle pain #10 tabs simvastatin 20 mg tablet 0 mg PO HS 08/24/23 08/24/23 History Patient History Medical History Hypothyroidism History of CVA (cerebrovascular accident) (~2017) Left knee pain PVD (peripheral vascular disease) Osteoarthritis Urinary incontinence GERD (gastroesophageal reflux disease) Migraine Cardiac murmur very faint, since childhood Hyperlipidemia Asthma no inhalers now; takes Bromelain HTN (hypertension) Surgical History History of left knee replacement History of open reduction and internal fixation (ORIF) 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) History of cataract surgery b/l History of dilatation and curettage x3 History of total left knee replacement (TKR) History of colonoscopy History of bladder surgery bladder tack x2 History of hysterectomy with bilateral oophorectomy History of tooth extraction all teeth History of appendectomy History of tonsillectomy and adenoidectomy History of endoscopic sinus surgery removal of nasal polyps S/P appendectomy Family History Son Family history of diabetes mellitus Mother Hypertension Myocardial infarction Father Hypertension Denies family history of Ovarian cancer Prostate cancer Breast cancer Lung cancer Colorectal cancer Social History Smoking Status: Never smoker Second Hand Exposure: No; Do You Dip or Chew Tobacco: No; Hx Alcohol Use: No Hx Substance Use: No Preferred Language: Mauritanian Communication Ability: Effective Visual Impairment: Limited 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: Normal 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 Beliefs That Will Affect Care: None marital status: Current Living Situation: Spouse Current Living Situation Comment: Lives with Clay Dove current occupational status: retired How many Children do You have: 2 Other Information That Helps Us Care for You: No Feels Safe at Home: Yes Safety Concerns: Feels Safe At This Time Childhood Exposure to Second-Hand Smoke: No caffeine: Yes (coffee 1 cup daily ) Dental Care, Regularly: No Physical Activity Frequency: 3-4 Times per Week Seatbelt Use: always Sunscreen Use: Yes Assistive Devices: Cane, Glasses, Hospital Bed, Stair Lift and Walker Review of Systems Constitutional: no fever and no chills Respiratory: no cough Gastrointestinal: + abdominal pain (improved); no blood in stools Physical Exam Constitutional: well developed Respiratory: normal respiratory effort Gastrointestinal (Abdomen): Inspection/Auscultation: abdomen normal to inspection Percussion/Palpation: + abdomen tender and abdomen soft Results & Data Vital Signs (Past 12 Hours) Vital Signs Temp Pulse BP Pulse Ox O2 Del Method 08/26/23 09:29 36.7 C 64 155/84 H 98 Room Air PG Care Time/CCT Total # of Minutes Spent Total Time Spent with Patient: Total time spent is greater than 50% in coordination of care (as documented) at patient's floor/unit and/or counseling patient: Coding Level of Care Code 74879 INT INP/OBS CARE 3/75MIN Diagnoses Diverticulitis K57.92 Dark stools R19.5
--- NOTE | 2023-08-26 21:48 | Hospitalist Progress Note ---
Date of Service August 26, 2023 Assessment & Plan (1) Diverticulitis: Plan: Abdominal pain and diarrhea x 2 weeks She was seen in the [place] ED on 08/13, and discharged on ciprofloxacin and metronidazole x 7 days; she reports taking the full course She came in today for black, liquid-y diarrhea (which was new for her) She does note that she recently started Pepto-Bismol, as the antibiotics were giving her severe indigestion/GI discomfort No leukocytosis; afebrile A/P CT revealed mild acute diverticulitis of the distal descending colon, with slight improvement from 08/13; no bowel obstruction, abscess, or pneumoperitoneum Stool cultures/C. difficile ordered, pending Do not believe this is a complete failure of outpatient antibiotics, as patient has been improving Rocephin 2000 mg IV q24h Metronidazole 500 mg IV q8h Will place on a clear liquid diet and advance as tolerated. will consult ID for assistance. Patient clinically appears to be doing better. Patient should continue antibiotic course either for 10 days or 14 days. Patient has been improving on this regimen as patient had only just completed 7 days, likely required a longer course. Patient should continue on this regimen and continue to complete 14 days. anticipate discharge on 08/26 (2) Lower GI bleed: Plan: Potential; unclear if this is a true lower GI bleed, in the setting of improving diverticulitis and recent Pepto-Bismol use Hgb 13.6 on arrival hemoglobin has charity relatively stable. not concerned for a GI bleed. (3) Hematuria: Plan: UA with +1 blood Hold chemical DVT PPx for now Monitor H&H (as above) may recommend outpatient urology followup. (4) HTN (hypertension): Plan: Patient reports she has not been taking her losartan since starting abx on 08/13 Will plan to restart losartan 100 mg on 08/24 (5) Hypothyroidism: Plan: Patient reports she has not been taking her levothyroxine (for at least the past 10 days) TSH elevated at 26.0 on arrival Restart levothyroxine Plan Disposition: Admit to [facility] DNR/DNI Admission and Anticipated Discharge Date Admission Date: August 24, 2023 Subjective Patient reports feeling better. No new symptoms. Review of Systems Review of Systems: All systems reviewed & are unremarkable except as noted in HPI & below Physical Exam Physical Exam: General: no acute distress; well-nourished; cooperative HEENT: normocephalic, atraumatic; Skin: warm, dry without signs of tenting; no cyanosis; no rashes, bruising, lesions, or erythema noted CV: no respiratory distress, heart: ABD: Soft; Neuro: A&Ox3; Results & Data Results & Data Vital Signs (Past 12 Hours) Vital Signs Temp Pulse Resp BP BP Pulse Ox O2 Del Method 08/26/23 20:40 37.1 C 76 18 157/90 H 143/80 H 99 Room Air 08/26/23 15:03 36.7 C 66 16 163/80 H 97 Room Air PG Care Time/CCT Total # of Minutes Spent Total Time Spent with Patient: Total time spent is greater than 50% in coordination of care (as documented) at patient's floor/unit and/or counseling patient: Coding Level of Care Code 90199 SUB INP/OBS CARE 2/35MIN Diagnoses Diverticulitis K57.92 Lower GI bleed K92.2 Hematuria R31.9 HTN (hypertension) I10 Hypothyroidism E03.9
--- NOTE | 2023-08-27 00:37 | Communication Note ---
Date of Service: August 27, 2023 Notified by nursing of concern of left facial redness/vision changes. Evaluated at bedside- AAOx4, left side eye lid droop, otherwise CN II-XII intact, PERRLA, EOMI, Strength 5/5 UE and LE B/L. Mild flushing left cheek. Pt states that left eyelid droop is not new, has had "since ". Blurred vision is new this evening. Denies double vision. No significant swelling/conjunctivitis to example blurred vision. Given new onset of blurred vision, plan for CT Head.
--- NOTE | 2023-08-27 01:32 | CT Scan Report ---
Exam(s): CT HEAD Without Contrast EXAM: CT Head Without Intravenous Contrast CLINICAL HISTORY: Reason for exam: New onset blurred vision. TECHNIQUE: Axial computed tomography images of the head/brain without intravenous contrast. CTDI is 35.22 mGy and DLP is 703.85 mGy-cm. Automated exposure control was utilized for the study. A dose lowering technique was utilized adhering to the principles of ALARA. COMPARISON: Comparison made to prior brain MRI from July 29, 2023. FINDINGS: Brain: Dilated perivascular space or remote lacunar infarct of the left thalamus. Remote ischemic injury of the right capsule. No hemorrhage. Advanced nonspecific white matter changes. No edema. Ventricles: Mild ventricular megaly. Bones/joints: Unremarkable. No acute fracture. Soft tissues: Bilateral lens replacements. Sinuses: Unremarkable as visualized. No acute sinusitis. Mastoid air cells: Unremarkable as visualized. No mastoid effusion. IMPRESSION: No evidence of acute intracranial pathology. Electronically signed by: Stacie Archer MD 08/27/23 01:31 AM
[2023-08-27 08:14] LABS: Basophils # (auto) 0.11 K/uL (0.00-0.20); Basophils % (auto) 1.3 %; Eosinophils # (auto) 0.49 K/uL (0.00-0.50); Hematocrit (blood only) 38.8 % (37.0-47.0); Hemoglobin 12.6 g/dl (12.0-16.0); Immature Granulocytes # (auto) 0.04 K/uL (0.01-0.20); Immature Granulocytes % (auto) 0.5 %; Lymphocytes # (auto) 1.37 K/uL (1.20-3.40); Lymphocytes % (auto) 16.7 %; Mean Corpuscular Hemoglobin 29.5 pg (25.0-34.0); Mean Corpuscular Hgb Conc 32.5 g/dL (32.0-36.0); Mean Corpuscular Volume 90.9 fL (80.0-100.0); Mean Platelet Volume 9.6 fL (9.4-12.4); Monocytes # (auto) 0.88 K/uL (0.11-0.59); Monocytes % (auto) 10.8 %; Neutrophils # (auto) 5.29 K/uL (1.40-6.50); Neutrophils % (auto) 64.7 %; Platelet Count 311 K/uL (130-400); RDW Coefficient of Variation 12.9 % (11.5-14.5); RDW Standard Deviation 42.7 fL (36.4-46.3); Red Blood Count 4.27 M/uL (4.20-5.40); White Blood Count 8.18 K/ul (4.8-10.8)
[2023-08-27 08:36] LABS: BUN Creatinine Ratio 15.9 (10-20); Calcium 9.2 mg/dl (8.6-10.3); Creatinine Clr Calc Pharmacy 39.6 ml/min; Est GFR (African American) 76.2 ml/min; Est GFR (Non-African American) 65.7 ml/min; Potassium 3.8 mmol/L (3.5-5.1)
--- NOTE | 2023-08-27 18:40 | Billing Data ---
Date of Service August 27, 2023 Coding Level of Care Code 38771 INP/OBS DISCH >30 MIN
--- NOTE | 2023-08-27 18:40 | Discharge Summary ---
Discharge Summary Date of Service August 27, 2023 Notes For Next Care Provider pt with lower gi bleed from diverticulitis, check anemia and electrolytes did have some persistent hematuria with non clean catch culture Medication Changes From Visit pt with diarrhea from Augmentin will dc on Cipro and Flagyl Admission HPI Per Admitting Provider Martha is an 82-year-old female with PMH of diverticulitis, HTN, PVD, and osteopenia. She presented for abdominal pain, hematuria, and D that has been ongoing. Patient was seen on 08/13 for similar symptoms, and recently finished a course of ciprofloxacin + metronidazole x 7 days for her diverticulitis, but notes little improvement. Patient lives with her (Galindo) who is at the bedside and provides additional history. He decided to come in after she had black liquidy diarrhea this morning, which is different from her regular diarrhea that has been ongoing x 1 week. Patient did complete her course of antibiotics, but noted that it "did not agree" with her stomach, and that she had a lots of indigestion and throat pain when taking them. The pills were not coated, and she had to mix it with applesauce in order to take them. She denies nausea/vomiting of any medications. She does note that she started taking Pepto-Bismol for indigestion, as it reported on the bottle that it would help with her diarrhea. She denies bright red blood in her diarrhea, but reports it has been black in color; she describes it as a "coffee ground" color. She also notes that she has had a loss of bowel continence, which is new for her. She has been having ongoing issues with loss of urinary continence. Seen in July, and had a pessary placed, but it did not work. Patient then had a UTI 1 to 2 weeks later at the end of July, for which she was hospitalized. Patient notes that she wiped after urinating today, and noted some blood on the toilet paper; unsure if hematuria. No prior history of diverticulitis besides this episode. Patient reports she has not been taking her regular medications since starting her antibiotics on 08/13. She has not been taking any additional medications for pain. Patient manages her own medications at home. Per , she has not been eating much the past few days. She endorses 0/10 LLQ pain at present, but does note tenderness with palpation. She is unsure of her listed PCN allergy, but reports she has done well on Rocephin in the past. She denies any recent smoking, tobacco use, or alcohol use. Patient is hypertensive at 179/83 at time of admission; vitals otherwise stable. ED course: NSS 1000 mL IV ROS: Patient endorses dizziness, lighteadedness, balance issues, intermittent HAs (ongoing), urinary incontinence (ongoing), abdominal pain, increased urinary frequency, suprapubic pain, diarrhea, and black diarrhea x 1 episode. Patient denies fever, chills, nightsweats, chest pain, chest palpitations, cough, SOB, abdominal pain, burning with urination, nausea, vomiting, saddle anesthesia, or N/T/pain in the legs. Principal Dx & Hospital Course #1 = Principal Diagnosis (1) Diverticulitis: Abdominal pain and diarrhea x 2 weeks A/P CT revealed mild acute diverticulitis of the distal descending colon, with slight improvement from 08/13; no bowel obstruction, abscess, or pneumoperitoneum Stool cultures/C. difficile ordered,negative stool biofire negative Do not believe this is a complete failure of outpatient antibiotics, as patient has been improving discharge on 08/26 (2) Lower GI bleed: Potential; unclear if this is a true lower GI bleed, in the setting of improving diverticulitis and recent Pepto-Bismol use Hgb 13.6 on arrival hemoglobin has charity relatively stable. not concerned for ongoing GI bleed. (3) Hematuria: UA with +1 blood, culture consider contaminated specimen, will be home on antibiotic Hold chemical DVT PPx for now Monitor H&H (as above) may consider outpatient urology followup. (4) HTN (hypertension): restart losartan on discharge (5) Hypothyroidism: Patient reports she has not been taking her levothyroxine (for at least the past 10 days) TSH elevated at 26.0 on arrival Restart levothyroxine Plan DNR/DNI Discharge Exam awake and alert, no new issues wants to go home is at bedside and agrees Updated Medication List Medication Instructions Recorded Confirmed Type cholecalciferol (vitamin D3) 25 1,000 unit PO QAM 02/10/18 08/24/23 History mcg (1,000 unit) tablet cyanocobalamin (vitamin B-12) 500 500 mcg PO QAM 02/10/18 08/24/23 History mcg tablet bromelains 500 mg tablet 0 mg PO DAILY 12/14/18 08/24/23 History docusate sodium 100 mg capsule 100 mg PO DAILY PRN Constipation 08/13/20 08/24/23 History (Colace) ascorbic acid (vitamin C) 500 mg 1,000 mg PO DAILY sickness 09/18/20 08/24/23 History tablet (Vitamin C) levothyroxine 100 mcg tablet 100 mcg PO QAM #90 tabs 02/11/23 08/24/23 Rx losartan 100 mg tablet 100 mg PO QAM #90 tabs 05/07/23 08/24/23 Rx pantoprazole 20 mg tablet,delayed 20 mg PO QAM #90 tabs 05/07/23 08/24/23 Rx release estradiol 0.01% (0.1 mg/gram) 1 g vaginal .COMPLEX #42.5 grams 07/08/23 08/24/23 Rx vaginal cream (Estrace) PURE BRAINPOWER 1 cap PO QAM 08/03/23 08/24/23 History calcium carbonate 500 mg-vitamin 1 tab PO DAILY 08/03/23 08/24/23 History D3 200 unit-vitamin K2 90 mcg tablet inulin 2.5 gram chewable tablet 0 g PO QPM 08/03/23 08/24/23 History naproxen sodium 220 mg capsule 220 mg PO Q8H PRN pain 08/03/23 08/24/23 History (Aleve) metaxalone 800 mg tablet 400 mg (1/2 x 800 mg) PO BID PRN 08/05/23 08/24/23 Rx muscle pain #10 tabs simvastatin 20 mg tablet 0 mg PO HS 08/24/23 08/24/23 History ciprofloxacin HCl 500 mg tablet 500 mg PO BID #20 tabs 08/27/23 Rx (Cipro) metronidazole 500 mg tablet 500 mg PO TID #30 tabs 08/27/23 Rx Hospital Stay Data Consultations 08/24/23 15:34 ED Decision to Admit Stat 08/25/23 13:33 Consult Infectious Diseases Routine 08/26/23 10:11 Consult Gastroenterology Routine Diagnostic Imagining Performed 08/24/23 12:20 CT Abd and Pelvis [CT abd pelvis IV con only] Stat 08/27/23 00:00 CT head/brain wo con Stat Pending Results Patient Have Any Pending Studies at Discharge: No Discharge Instructions Given to Patient (Per Discharging Provider) please complete all of your antibiotics and follow up with a primary care doctor, Shahana Arenas eat a low fiber diet for the next few days Total Time Total Time Spent Total Time Spent (In Minutes): It required greater than 30 minutes to prepare this patient for discharge.
== END 2023-08-27 15:50 | disposition home health service (06) | DRG 392 ==
LOC: ED 10:56 → 3N 16:40 → SUATTDRO 16:40 → 3N 19:05